=== PATIENT | female | born 1935 | race Caucasian/White ===

== ENCOUNTER 2016-08-11 14:55 | Observation (INO) | payer MEDICARE, BC ==
[~2016-08-11] VITALS: Ht 149.9 cm; Wt 121.9 kg
--- NOTE | ~2016-08-11 | HEMODYNAMI ---
PATIENT:CHRISTIAN GARCIAS NOVEMBER MEDICAL RECORD: [id number] : 33 [facility] [id number] ADMISSION DATE: 08/12/16 Generatedon:08/13/201611:26 Patient name: CHRISTIAN GARCIAS Patient #: [id number] SSN: : 1935 Date of study: 08/13/2016 Page: Of Hemodynamic Procedure Report Patient Data Patient Demographics Procedure consent was obtained First Name: CHRISTIAN Gender: Female Last Name: DIETER : 1935 Middle Initial: NOVEMBER Age: 81 year(s) Patient #: [id number] Race: Additional ID: [id number] Contact details Address: [address] [place] [address] State: [place] City: [facility] Zip code: [address] Past Medical History Allergies: No known allergies Admission Admission Data Admission Date: 08/12/2016 Admission Time: 17:38 Admit Source: Other Insurance Payor: Private Room #: D.2120 [employer] insurance, Medicare Height (in.): 49 BSA: 1.61 (m2) Height (cm.): 124.46 BMI: 58.56 (kg/m2) Weight (lbs.): 200 Weight (kg.): 90.72 Medications upon Admission Medications Dosage Times Administered Last Remarks per Delivery Day Date and Time Clopidogrel Yes 08/11/2016 0:00 Lab Results Lab Result Date: 08/12/2016 Lab Result Time: 0:00 Biochemistry Name Units Result Min Max Creatinine mg/dl 1.2 --(---*)-- 0.6 1.3 CBC Name Units Result Min Max Hemoglobin g/dl 13.8 --(*---)-- 13.5 17.5 Procedure Procedure Types Cath Procedure PCI Procedure Coronary Stent Initial Procedure Description Procedure Date Procedure Date: 08/13/2016 Procedure Start Time: 11:11 Procedure End Time: 11:24 Procedure Staff Name Function Curly Baptiste MD Performing Physician Sridevi Addison RT Scrub Olive Goff RN Nurse Talha Jones RN District Administrator Juan Carlos Talha RT Monitor Additional PCI Information PCI indication: Staged PCI Procedure Data Cath Procedure Fluoroscopy Diagnostic fluoroscopy Total fluoroscopy Time: 2.8 time: 2.8 min min Diagnostic fluoroscopy Total fluoroscopy dose: 474 dose: 474 mGy mGy Contrast Material Contrast Material Type Amount (ml) Isovue 300 58 Entry Location Entry Primary Successful Side Size Upsize Upsize Entry Closure Succes sful Closure Location (Fr) 1 (Fr) 2 (Fr) Remarks Device Remarks Femoral Left 6 Fr Vascade artery Short Closure System Estimated blood loss: 10 ml Procedure Complications No complications Procedure Medications Medication Administration Route Dosage Oxygen NC 2 l/min Lidocaine 2% added to field 20 Heparin Flush Bag added to field 2 bags (1000units/500ml NS) 0.9% NaCl I.V. 100 ml/hr Versed I.V. 1 mg Fentanyl I.V. 50 mcg Versed I.V. 1 mg Fentanyl I.V. 50 mcg Heparin Bolus I.V. 4000 units Hemodynamics Rest BSA: 1.61 (m2) HGB: 13.8 (g/dl) O2 Consumption: Estimated: 148.9 (ml/min) O2 Con sumption indexed: Estimated:92.48 (ml/min/m) Heart Rate: 78 (bpm) Snapshots Pre Cath Intra NCS Post Cath Vital Signs Time Heart Resp SPO2 etCO2 OU6tbit NIBP (mmHg) Rhythm Pain Sedation Rate (ipm) (%) (mmHg) (mmHg) Status Level (bpm) 10:54:03 76 28 96 0 0 Measuring NSR 0 (11) 10(A) , No pain 10:55:26 80 17 98 0 0 Time NSR 0 (11) 10(A) Exceeded , No pain 10:59:51 74 15 96 0 0 154/66(95) NSR 0 (11) 10(A) , No pain 11:07:34 77 18 97 0 0 134/66(85) NSR 0 (11) 10(A) , No pain 11:11:50 84 18 94 0 0 145/66(103) NSR 0 (11) 9(A) , No pain 11:16:08 85 17 95 0 0 137/62(85) NSR 0 (11) 9(A) , No pain 11:20:24 90 15 96 0 0 140/60(87) NSR 0 (11) 9(A) , No pain 11:23:20 91 16 97 0 0 135/62(81) NSR 0 (11) 10(A) , No pain Medications Time Medication Route Dose Verified Delivered Reason Notes Effectiveness by by 10:51:33 Oxygen NC 2 Curly Buffie used for l/min Oliva Goff RN procedure 10:51:46 Lidocaine 2% added 20ml Curly Curly for local to vial Oliva Baptiste MD anesthetic field 10:51:56 Heparin Flush added 2 Curly Curly used for Bag to bags Oliva Baptiste MD procedure (1000units/500ml field NS) 10:52:07 0.9% NaCl I.V. 100 Curly Buffie Per physician ml/hr Oliva Goff RN 11:05:32 Versed I.V. 1 mg Curly Beauie for sedation lOiva Goff RN 11:06:40 Fentanyl I.V. 50 Curly Buffie for sedation mcg Oliva Goff RN 11:12:44 Versed I.V. 1 mg Curly Buffie for sedation Oliva Goff RN 11:12:47 Fentanyl I.V. 50 Curly Schaefer for sedation mcg Oliva Goff RN 11:14:48 Heparin Bolus I.V. 4000 Curlyronna Yanezie for verifi ed units Oliva Goff RN anticoagulation with dr baptiste Procedure Log Time Note 10:20:49 Talha Jones RN sent for patient. Start room use. 10:33:34 Patient Height : 49 cm 10:33:34 Patient Weight : 200 kg 10:34:11 Time tracking: Regular hours 10:34:15 Plan of Care:Hemodynamics will remain stable., Cardiac rhythm will remain stable., Comfort level will be maintained., Respiratory function will remain adequate., Patient/ family verbilizes understanding of procedure., Procedure tolerated without complication., Recovers from procedure without complications.. 10:44:19 Patient received from PCU to CCL 2 Alert and oriented. Tansferred to table in Supine position. 10:44:20 Warm blankets applied, and dereje hugger turned on for patient comfort. 10:44:20 Correct patient and procedure confirmed by team. 10:44:21 Signed procedure consent form obtained from patient. 10:44:22 ECG and BP/O2 sat monitors applied to patient. 10:44:24 Full Disclosure recording started 10:51:33 Oxygen 2 l/min NC was given by Olive Goff RN; used for procedure; 10:51:46 Lidocaine 2% 20ml vial added to field was given by Curly Baptiste MD; for local anesthetic; 10:51:56 Heparin Flush Bag (1000units/500ml NS) 2 bags added to field was given by Curly Baptiste MD; used for procedure; 10:52:07 0.9% NaCl 100 ml/hr I.V. was given by Olive Goff RN; Per physician; 10:52:13 Vital chart was started 10:56:14 Vital chart was stopped 10:58:05 ACC Patient presents with Unstable Angina CCS Anginal Class 3--Marked limitation of physical activity, angina occurs with ordinary activity.. 10:58:11 Baseline sample Acquired. 10:58:15 Rhythm: sinus rhythm 10:59:04 H&P Date Dictated: 08/12/2016 Within 30 days and on chart.. 10:59:05 Pre-procedure instructions explained to patient. 10:59:05 Pre-op teaching completed and patient verbalized understanding. 10:59:07 Family in waiting room. 10:59:09 Patient NPO since Midnight. 10:59:13 Patient allergic to No known allergies 10:59:17 Is the patient allergic to Iodine/contrast media? No. 10:59:18 Is patient on blood thinner?Yes 10:59:21 ACC The patient was administered the following blood thiners within the last 24 hours: ACCPlavix 10:59:23 Patient diabetic? No. 10:59:26 Previous problem with sedation/anesthesia? No ? 10:59:28 Snore? No 10:59:29 Sleep apnea? No 10:59:30 Deviated septum? No 10:59:31 Opens mouth fully? Yes 10:59:32 Sticks out tongue? Yes 10:59:34 Airway obstruction? No ? 10:59:38 Dentures? Yes in tight 10:59:41 Pre procedure: left dorsailis pedis pulse 1+ Palpable, but thready & weak; easily obliterated 10:59:49 Patient pain scale 0/10 ?. 10:59:55 IV patent on arrival in left antecubital with 0.9% NaCl at [facility]. 11:00:02 Lab results completed and on chart. 11:00:07 Left groin area was prepped with chlora-prep and draped in sterile fashion 11:00:11 Alarms reviewed by R. N. 11:00:14 Sharps counted by scrub and verified by R.N. 11:00:25 Use device set Femoral PCI 11:00:27 Tegaderm 4 x 4 opened to sterile field. 11:00:28 Acist Manifold opened to sterile field. 11:00:29 Acist Syringe opened to sterile field. 11:00:29 Acist Hand Control opened to sterile field. 11:00:30 Bag Decanter opened to sterile field. 11:00:31 Cardinal Cath Pack opened to sterile field. 11:00:31 Terumo 6Fr Westmont Sheath opened to sterile field. 11:00:32 St Naveed 260cm J .035 wire opened to sterile field. 11:00:32 Merit BasixCompak Inflation Kit opened to sterile field. 11:04:49 Physician arrived 11:04:49 --------ALL STOP TIME OUT------ 11:04:50 Final Timeout: patient, procedure, and site verified with staff and physician. All members of the team are in agreement. 11:04:52 Left groin site verified by team. 11:04:54 Physical assessment completed. ASA score P 2 - A patient with mild systemic disease as per Curly Baptiste MD. 11:04:58 Sedation plan: IV Moderate Sedation Versed, Fentanyl 11:05:01 Zero performed for pressure channel P1 11:05:06 Zero performed for pressure channel P1 11:05:32 Versed 1 mg I.V. was given by Olive Goff RN; for sedation; 11:06:03 Zero performed for pressure channel P1 11:06:06 Zero performed for pressure channel P1 11:06:11 Zero performed for pressure channel P1 11:06:25 PCI Indication : Staged PCI 11:06:29 Vital chart was started 11:06:40 Fentanyl 50 mcg I.V. was given by Olive Goff RN; for sedation; 11:11:42 Procedure started. 11:11:47 Local anesthetic to left femerol artery with Lidocaine 2% by Curly Baptiste MD.INITIAL ACCESS ONLY 11:12:23 A 6 Fr Short sheath was inserted into the Left Femoral artery 11:12:44 Versed 1 mg I.V. was given by Olive Goff RN; for sedation; 11:12:47 Fentanyl 50 mcg I.V. was given by Olive Goff RN; for sedation; 11:13:08 Cordis 6FR XBLAD 3.5 guide catheter opened to sterile field. 11:13:15 Diaz Whisper J 300cm 0.014 guide wire opened to sterile field. 11:14:48 Heparin Bolus 4000 units I.V. was given by Olive Goff RN; for anticoagulation; verified with dr baptiste 11:17:00 6 Fr xblad 3.5 guide catheter was inserted over the wire 11:17:11 whisper wire advanced. 11:17:19 Wire advanced across lesion. 11:17:22 Inflation Number: 1 A Medtronic Resolute 2.5 X 14 stent was prepped and advanced across the Mid CX. The stent was deployed at 17 ENOC for 0:10 (min:sec). 11:18:02 Stent catheter was removed intact over wire. 11:18:09 ACC PCI Site: [facility] has 80% stenosis. 11:18:11 ACC Pre-intervention DAVID Flow is 1. 11:18:42 Inflation number: 1 A [place] Sci Pike 3.0 X 12 balloon was prepped and advanced across the Prox CX, then inflated to 17 ENOC for 0:10 (min:sec). 11:19:16 Inflation number: 2 The [place] Sci Pike 3.0 X 12 balloon was reinflated across the Prox CX, to 17 ENOC for 0:10 (min:sec). 11:19:19 ACC Post-intervention DAVID Flow is 2. 11:19:20 Balloon removed over the wire. 11:19:21 Wire removed. 11:19:21 Guide catheter removed. 11:19:27 Vascade 6/7 Fr Closure Device opened to sterile field. 11:19:41 Sheath removed intact; hemostasis achieved with Vascade Closure System to the Left Femoral artery. 11:19:43 Procedure ended.(Physican Out) 11:22:06 Fluoroscopy time 02.80 minutes. 11:22:10 Fluoroscopy dose: 474 mGy 11:22:10 Flurop Dose total: 474 11:22:14 Contrast amount:Isovue 300 58ml. 11:22:16 Sharps counted by scrub and verified by R.N. 11:22:17 Insertion/operative site no bleeding no hematoma. 11:22:20 Post-op/insertion site Left Femoral artery dressed using a 4 x 4 and Tegaderm. 11:22:25 Post left femerol artery:stable, soft, clean and dry 11:22:36 Post Procedure Pulses reassessed and unchanged 11:22:51 Post procedure rhythm: unchanged. 11:22:54 Estimated blood loss: 10 ml 11:22:56 Post procedure instruction explained to patient.Patient verbalizes understanding. 11:22:57 Patient needs reinforcement of post procedure teaching. 11:23:46 Procedure and supply charges have been captured, reviewed, submitted and are correct. 11:23:49 Procedure Complication : No complications 11:24:19 See physician's report for complete and final results. 11:24:21 Report given to PCU. 11:24:24 Patient transfered to PCU with Stretcher. 11:24:26 Procedure ended. 11:24:26 Full Disclosure recording stopped 11:25:51 ACC-PCI Only Patient was given prescriptions, or instructed by Curly Baptiste MD to start/continue the following medications upon discharge: Plavix 11:25:52 End room use (Document Last) 11:26:17 Vital chart was stopped Intervention Summary Intervention Notes Time ActionType Lesion and Equipment Action# Pressure Duration Attributes Used 11:17:22 Place stent Mid CX Medtronic 1 17 00:10 Resolute 2.5 X 14 stent 11:18:42 Inflate Prox CX [place] 1 17 00:10 balloon Sci Pike 3.0 X 12 balloon 11:19:16 Reinflate Prox CX [place] 2 17 00:10 balloon Sci Pike 3.0 X 12 balloon Device Usage Item Name Manufacture Quantity Catalog Number Hospital Part Current Mini mal Lot# / Charge Number Stock Stock Serial# Code Tegaderm 4 3M 1 [id number] [id number] [id number] 5 x 4 Acist Acist 1 99948 624385 271119 [id number] 5 Manifold Medical Systems Inc Acist Acist 1 92073 004506 717571 238454 20 Syringe Medical Systems Inc Acist Hand Acist 1 16984 903527 837497 129808 5 Control Medical Systems Inc Bag Microtek 1 2002S 256915 95481 014767 5 Decanter Medical Inc. Cardinal Cardinal 1 [id number] 84051 388488 5 Cath Pack Health Terumo 6Fr Terumo 1 [id number] 476099 178890 166704 [address] Naveed 1 338986 012158 780167 597145 30 260cm J .035 wire [facility] Merit 1 [id number] 653030 620919 531676 15 BasSequence Medical Inflation Kit Cordis 6FR Cardinal 1 [id number] 609805 467535 207743 10 XBLAD 3.5 Health guide catheter Diaz Diaz 1 [id number] 146553 408713 819529 5 Whisper J Vascular 300cm 0.014 guide wire Medtronic Medtronic 1 [id number] 039139 896704 3 [id number] Resolute 2.5 X 14 stent [place] Sci [place] 1 [id number] 084774 550901 692523 1 [id number] Wedit 3.0 X 12 balloon Vascade 6/7 Cardiva 1 [id number] 510303 403538 956493 5 Fr Closure Medical, Device Inc. Signature Audit [place] Stage Time Signature Unsigned Intra-Procedure 08/13/2016 Juan Carlos Palencia 11:26:15 AM RT(R) Signatures Monitor : Juan Carlos Palencia RT Signature : Date : Time : [place] [id number] [place] [address]
--- NOTE | ~2016-08-11 | HEMODYNAMI ---
PATIENT:CHRISTIAN GARCIAS NOVEMBER MEDICAL RECORD: [id number] : 34 [id number] ADMISSION DATE: 08/11/16 Generatedon:08/12/201612:58 Patient name: CHRISTIAN GARCIAS Patient #: [id number] SSN: : 1935 Date of study: 08/12/2016 Page: Of Hemodynamic Procedure Report Patient Data Patient Demographics Procedure consent was obtained First Name: CHRISTIAN Gender: Female Last Name: DIETER : 1935 Middle Initial: NOVEMBER Age: 81 year(s) Patient #: [id number] Race: Additional ID: [id number] Contact details Address: [address] [place] [address] State: [place] City: [facility] Zip code: [address] Past Medical History Allergies: No known allergies Admission Admission Data Admission Date: 08/11/2016 Admission Time: 18:52 Admit Source: Other Insurance Payor: Private Room #: D.[address] [employer], Medicare Height (in.): 49 BSA: 1.61 (m2) Height (cm.): 124.46 BMI: 58.56 (kg/m2) Weight (lbs.): 200 Weight (kg.): 90.72 Medications upon Admission Medications Dosage Times Administered Last Remarks per Delivery Day Date and Time Clopidogrel Yes 08/11/2016 0:00 Lab Results Lab Result Date: 08/12/2016 Lab Result Time: 0:00 Biochemistry Name Units Result Min Max Creatinine mg/dl 1.2 --(---*)-- 0.6 1.3 CBC Name Units Result Min Max Hemoglobin g/dl 13.8 --(*---)-- 13.5 17.5 Procedure Procedure Types Cath Procedure Diagnostic Procedure [facility] w/Coronaries PCI Procedure Coronary Stent Initial Procedure Description Procedure Date Procedure Date: 08/12/2016 Procedure Start Time: 12:33 Procedure End Time: 12:55 Procedure Staff Name Function Curly Baptiste MD Performing Physician Olive Goff RN Nurse Talha Jones RN Information Technology Program Manager Sridevi Addison RT Scrub Juan Carlos Palnecia RT Monitor Procedure Data Cath Procedure Fluoroscopy Diagnostic fluoroscopy Total fluoroscopy Time: 7.7 time: 7.7 min min Diagnostic fluoroscopy Total fluoroscopy dose: dose: 1689 mGy 1689 mGy Contrast Material Contrast Material Type Amount (ml) Isovue 300 171 Entry Location Entry Primary Successful Side Size Upsize Upsize Entry Closure Succes sful Closure Location (Fr) 1 (Fr) 2 (Fr) Remarks Device Remarks Femoral Right 5 Fr 6 Fr Vascade artery Short Closure System Estimated blood loss: 10 ml Diagnostic catheters Device Type Used For End Catheter Placement Cordis 5Fr Pigtail Procedure Catheter (MP) Cordis 5Fr JL 4.0 Procedure Catheter (MP) Cordis 5Fr 3DRC Catheter Procedure (MP) Procedure Complications No complications Procedure Medications Medication Administration Route Dosage Plavix P.O. 75 mg Oxygen NC 2 l/min Lidocaine 2% added to field 20 Heparin Flush Bag added to field 2 bags (1000units/500ml NS) 0.9% NaCl I.V. 100 ml/hr Versed I.V. 1 mg Fentanyl I.V. 50 mcg Versed I.V. 1 mg Fentanyl I.V. 50 mcg Fentanyl I.V. 50 mcg Heparin Bolus I.V. 4000 units Hemodynamics Rest BSA: 1.61 (m2) HGB: 13.8 (g/dl) O2 Consumption: Estimated: 150.77 (ml/min) O2 Co nsumption indexed: Estimated:93.65 (ml/min/m) Heart Rate: 81 (bpm) Snapshots Pre Cath Intra NCS Post Cath Vital Signs Time Heart Resp SPO2 etCO2 LL1iwak NIBP (mmHg) Rhythm Pain Sedation Rate (ipm) (%) (mmHg) (mmHg) Status Level (bpm) 12:08:29 80 16 95 0 0 165/81(134) NSR 0 (11) 10(A) , No pain 12:13:01 80 20 94 0 0 154/78(98) NSR 0 (11) 10(A) , No pain 12:17:32 79 20 96 0 0 146/75(120) NSR 0 (11) 10(A) , No pain 12:21:49 73 16 94 0 0 126/65(98) NSR 0 (11) 10(A) , No pain 12:26:12 78 16 95 0 0 132/67(106) NSR 0 (11) 10(A) , No pain 12:30:36 82 15 98 0 0 132/62(101) NSR 0 (11) 10(A) , No pain 12:34:56 80 15 96 0 0 121/63(84) NSR 0 (11) 9(A) , No pain 12:39:18 85 15 94 0 0 119/56(87) NSR 0 (11) 9(A) , No pain 12:43:38 90 15 98 0 0 127/61(87) NSR 0 (11) 9(A) , No pain 12:47:56 89 16 98 0 0 123/58(94) NSR 0 (11) 9(A) , No pain 12:52:14 96 16 98 0 0 140/74(103) NSR 0 (11) 10(A) , No pain Medications Time Medication Route Dose Verified Delivered Reason Notes Effectiveness by by 12:08:45 Plavix P.O. 75 mg Curly Buffie used for Oliva Goff RN procedure 12:08:53 Oxygen NC 2 Curly Buffie used for l/min Oliva Goff RN procedure 12:09:01 Lidocaine 2% added 20ml Curly Curly for local to vial Oliva Baptiste MD anesthetic field 12:09:08 Heparin Flush added 2 Curly Curly used for Bag to bags Oliva Baptiste MD procedure (1000units/500ml field NS) 12:09:17 0.9% NaCl I.V. 100 Curly Buffie Per physician ml/hr Oliva Goff RN 12:30:41 Versed I.V. 1 mg Curly Buffie for sedation Oliva Goff RN 12:30:46 Fentanyl I.V. 50 Curly Buffie for sedation mcg Oliva Goff RN 12:34:42 Versed I.V. 1 mg Curly Buffie for sedation Oliva Goff RN 12:34:46 Fentanyl I.V. 50 Curly Buffie for sedation mcg Oliva Goff RN 12:38:56 Fentanyl I.V. 50 Curly Buffie for sedation mcg Oliva Goff RN 12:41:47 Heparin Bolus I.V. 4000 Curly Buffie for verifi ed units Oliva Goff RN anticoagulation with dr baptiste Procedure Log Time Note 11:46:34 Talha Jones RN sent for patient. Start room use. 11:51:52 Time tracking: Regular hours 11:51:56 Plan of Care:Hemodynamics will remain stable., Cardiac rhythm will remain stable., Comfort level will be maintained., Respiratory function will remain adequate., Patient/ family verbilizes understanding of procedure., Procedure tolerated without complication., Recovers from procedure without complications.. 11:59:04 Patient received from PCU to CCL 2 Alert and oriented. Tansferred to table in Supine position. 11:59:04 Warm blankets applied, and dereje hugger turned on for patient comfort. 11:59:05 Correct patient and procedure confirmed by team. 11:59:06 Signed procedure consent form obtained from patient. 11:59:07 ECG and BP/O2 sat monitors applied to patient. 11:59:10 Full Disclosure recording started 12:02:33 H&P Date Dictated: 08/12/2016 Within 30 days and on chart.. 12:02:35 Pre-procedure instructions explained to patient. 12:02:35 Pre-op teaching completed and patient verbalized understanding. 12:02:37 Family in patients room. 12:02:39 Patient NPO since Midnight. 12:03:14 Patient allergic to No known allergies 12:03:17 Is the patient allergic to Iodine/contrast media? No. 12:03:19 Is patient on blood thinner?Yes 12:03:22 ACC The patient was administered the following blood thiners within the last 24 hours: ACCPlavix 12:04:39 Patient diabetic? No. 12:04:43 Previous problem with sedation/anesthesia? No ? 12:04:44 Snore? No 12:04:46 Sleep apnea? No 12:04:47 Deviated septum? No 12:04:48 Opens mouth fully? Yes 12:04:49 Sticks out tongue? Yes 12:04:52 Airway obstruction? No ? 12:04:57 Dentures? Yes in tight 12:05:52 Patient pain scale 0/10 ?. 12:05:57 IV patent on arrival in left forearm with 0.9% NaCl at [facility]. 12:06:24 Lab Result : Hemoglobin 13.8 g/dl 12:06:24 Lab Result : Creatinine 1.2 mg/dl 12:06:26 Lab results completed and on chart. 12:06:30 Alarms reviewed by R. N. 12::30 Sharps counted by scrub and verified by R.N. 12:07:01 Vital chart was started 12:07:03 Baseline sample Acquired. 12:07:06 Rhythm: sinus rhythm 12:08:45 Plavix 75 mg P.O. was given by Olive Goff RN; used for procedure; 12:08:53 Oxygen 2 l/min NC was given by Olive Goff RN; used for procedure; 12:: Lidocaine 2% 20ml vial added to field was given by Curly Baptiste MD; for local anesthetic; 12::08 Heparin Flush Bag (1000units/500ml NS) 2 bags added to field was given by Curly Baptiste MD; used for procedure; 12:09:17 0.9% NaCl 100 ml/hr I.V. was given by Olive Goff RN; Per physician; 12:12:34 Pre procedure: right dorsailis pedis pulse 1+ Palpable, but thready & weak; easily obliterated 12:12:46 Right groin area was prepped with chlora-prep and draped in sterile fashion 12:12:51 Use device set Femoral Dx 12:12:54 Tegaderm 4 x 4 opened to sterile field. 12:12:54 Acist Manifold opened to sterile field. 12:12:55 Acist Hand Control opened to sterile field. 12:12:56 Acist Syringe opened to sterile field. 12:12:56 Bag Decanter opened to sterile field. 12:12:57 Cardinal Cath Pack opened to sterile field. 12:12:57 Terumo 5Fr [place] Sheath opened to sterile field. 12:12:58 St Naveed 260cm J .035 wire opened to sterile field. 12:12:59 Cordis Infinity 5Fr Multipack catheter opened to sterile field. 12:13:56 ACC Patient presents with Unstable Angina CCS Anginal Class 3--Marked limitation of physical activity, angina occurs with ordinary activity.. 12:13:58 Diagnostic Cath status Elective 12:14:55 Physician paged 12:21:27 Zero performed for pressure channel P1 12:21:41 Zero performed for pressure channel P1 12:22:07 Zero performed for pressure channel P1 12::19 Patient Height : 49 cm 12:: Patient Weight : 200 kg 12:: Insurance Payor : Private health insurance, Medicare 12:: Admit Source: Other : --------ALL STOP TIME OUT------ :: Final Timeout: patient, procedure, and site verified with staff and physician. All members of the team are in agreement. 12:: Right groin site verified by team. 12:: Physical assessment completed. ASA score P 2 - A patient with mild systemic disease as per Curly Baptiste MD. 12::16 Sedation plan: IV Moderate Sedation Versed, Fentanyl 12::41 Versed 1 mg I.V. was given by Olive Goff RN; for sedation; 12:30:46 Fentanyl 50 mcg I.V. was given by Olive Goff RN; for sedation; 12:33:07 Procedure started. 12:33:10 Local anesthetic to right femoral artery with Lidocaine 2% by Curly Baptiste MD.INITIAL ACCESS ONLY 12:34:00 A 5 Fr sheath was inserted into the Right Femoral artery 12:34:16 A Cordis 5Fr Pigtail Catheter (MP) was advanced over the wire and used for Procedure. 12:34:38 LV gram done using WILHELM 12:34:40 Injector settings: Ml/sec: 10, Volume: 20, 12:34:42 Versed 1 mg I.V. was given by Olive Goff RN; for sedation; 12::46 Fentanyl 50 mcg I.V. was given by Olive Goff RN; for sedation; 12:34:50 EF : 50 % 12:34:53 Catheter exchanged over wire. 12:34:58 A Cordis 5Fr JL 4.0 Catheter (MP) was advanced over the wire and used for Procedure. 12:35:45 LCA angiography performed. 12:36:01 Studio SBV BasixCompak Inflation Kit opened to sterile field. 12:36:06 Diaz Whisper J 300cm 0.014 guide wire opened to sterile field. 12:36:11 Terumo 6Fr [place] Sheath opened to sterile field. 12:36:51 Catheter exchanged over wire. 12:37:03 A Cordis 5Fr 3DRC Catheter (MP) was advanced over the wire and used for Procedure. 12:38:18 Catheter removed. unable to cannulate vessel. 12:38:45 Medtronic Launcher 5Fr AR 2.0 guide catheter opened to sterile field. 12:38:56 Fentanyl 50 mcg I.V. was given by Olive Goff RN; for sedation; 12:39:01 5 Fr AR 2 guide catheter was inserted over the wire 12:40:15 RCA angiography performed. 12:40:19 ACCDominant side:Left 12:41:10 [place] IVUS Catheter opened to sterile field. 12:41:34 Catheter removed. 12:41:44 Sheath upsized to a 6 Fr Short. 12:41:47 Heparin Bolus 4000 units I.V. was given by Olive Goff RN; for anticoagulation; verified with dr baptiste 12:42:29 Cordis 6FR XBLAD 4.0 guide catheter opened to sterile field. 12:42:37 6 Fr xblad 4 guide catheter was inserted over the wire 12:43:29 Guide Catheter removed. unable to cannulate vessel. 12:43:45 Cordis 6FR XBLAD 3.5 guide catheter opened to sterile field. 12:43:54 6 Fr xblad 3.5 guide catheter was inserted over the wire 12:45:07 whisper wire advanced. 12:45:20 Wire advanced across lesion. 12:45:22 IVUS catheter advanced over wire. 12:45:27 IVUS pass to Circ lesion performed. 12:48:04 IVUS catheter removed over wire. 12:50:33 Inflation Number: 1 A Medtronic Resolute 3.5 X 30 stent was prepped and advanced across the Mid CX. The stent was deployed at 13 ENOC for 0:10 (min:sec). 12:50:58 ACC PCI Site: [facility] has 85% stenosis. 12:51:01 ACC Pre-intervention DAVID Flow is 1. 12:51:11 ACC Post-intervention DAVID Flow is 3. 12:51:31 Stent catheter was removed intact over wire. 12:51:31 Wire removed. 12:51:32 Guide catheter removed. 12:51:41 Vascade 6/7 Fr Closure Device opened to sterile field. 12:52:05 Sheath removed intact; hemostasis achieved with Vascade Closure System to the Right Femoral artery. 12:52:36 Procedure ended.(Physican Out) 12:52:49 Fluoroscopy time 07.70 minutes. 12:53:03 Fluoroscopy dose: 1689 mGy 12:53:03 Flurop Dose total: 1689 12:53:26 Contrast amount:Isovue 300 171ml. 12:53:58 Sharps counted by scrub and verified by R.N. 12:54:03 Insertion/operative site no bleeding no hematoma. 12:54:06 Post-op/insertion site Right Femoral artery dressed using a 4 x 4 and Tegaderm. 12:54:11 Post right femoral artery:stable, soft, clean and dry 12:54:12 Post Procedure Pulses reassessed and unchanged 12:54:15 Post-procedure physical assessment completed. ASA score P 2 - A patient with mild systemic disease as per Curly Baptiste MD. 12:54:17 Post procedure rhythm: unchanged. 12:54:21 Estimated blood loss: 10 ml 12:54:22 Post procedure instruction explained to patient.Patient verbalizes understanding. 12:54:23 Patient needs reinforcement of post procedure teaching. 12:54:30 Procedure type changed to Cath procedure, Diagnostic procedure, LHC, LHC w/Coronaries, PCI procedure, Coronary Stent Initial 12:54:55 Procedure and supply charges have been captured, reviewed, submitted and are correct. 12:54:57 Procedure Complication : No complications 12:54:59 Vital chart was stopped 12:54:59 See physician's report for complete and final results. 12:55:01 Report given to PCU. 12:55:03 Patient transfered to PCU with Stretcher. 12:55:06 Procedure ended. 12:55:06 Full Disclosure recording stopped 12:55:13 ACC-PCI Only Patient was given prescriptions, or instructed by Curly Baptiste MD to start/continue the following medications upon discharge: Plavix 12:56:38 End room use (Document Last) Intervention Summary Intervention Notes Time ActionType Lesion and Equipment Action# Pressure Duration Attributes Used 12:50:33 Place stent Mid CX Medtronic 1 13 00:10 Resolute 3.5 X 30 stent Device Usage Item Name Manufacture Quantity Catalog Hospital Part Current [facility] l Lot# / Number Charge Number Stock Stock Serial# Code Tegaderm 4 1 1626 [id number] 814881 668631 5 x 4 Acist Acist 1 50898 062312 502592 688563 5 Manifold Medical Systems Inc Acist Hand Acist 1 57421 998751 508221 885293 5 Control Medical Systems Inc Acist Acist 1 70008 395787 801119 248919 20 Syringe Medical Systems Inc Bag Microtek 1 2002S 347614 78015 187234 5 Decanter Medical Inc. Cardinal Cardinal [address] 413549 08609 068144 5 Cath Pack Health Terumo 5Fr Terumo 1 [id number] 517305 129374 942688 [address] [place] [address] St Naveed 1 736668 086993 565745 096439 30 260cm J .035 wire Cordis Cardinal 1 [id number] 040123 96613 138726 30 Infinity Health 5Fr Multipack catheter Cordis 5Fr Cardinal 1 [id number] 5 Pigtail Health Catheter (MP) Cordis 5Fr Cardinal 1 203038 5 JL 4.0 Health Catheter (MP) [facility] 1 [id number] 723801 333228 384700 15 BasixCompak Medical Inflation Kit Diaz Diaz 1 [id number] 905024 547267 617818 5 Whisper J Vascular 300cm 0.014 guide wire Terumo 6Fr Terumo 1 [id number] 216709 314587 134634 40 [place] Sheath Cordis 5Fr Cardinal 1 076006 5 3DRC Health Catheter (MP) Medtronic Medtronic 1 [id number] 532700 288631 496182 1 Launcher 5Fr AR 2.0 guide catheter [place] 1 [id number] 490686 198638 364640 8 [place] IVUS Catheter Cordis 6FR Cardinal 1 [id number] 851642 815897 612289 3 XBLAD 4.0 Health guide catheter Cordis 6FR Cardinal 1 [id number] 629687 292967 964340 10 XBLAD 3.5 Health guide catheter Medtronic Medtronic 1 [id number] 852477 378752 7 [id number] Resolute 3.5 X 30 stentt Vascade 6/7 Cardiva 1 [id number] 845155 015637 678058 5 Fr Closure Medical, Device Inc. Signature Audit [place] Stage Time Signature Unsigned Intra-Procedure 08/12/2016 Juan Carlos Palencia 12:58:23 PM RT(R) Signatures Monitor : Juan Carlos Palencia RT Signature : Date : Time : [place] [id number] [place] [address]
[2016-08-11 15:47] LABS: BASOPHILS 0.3 % (0.0-2.0); EOSINOPHILS 1.7 % (0-7); HEMATOCRIT 41.7 % (36.0-48.0); HEMOGLOBIN 13.8 g/dL (12-16); IMMATURE GRANULOCYTES 0.4 % (0-5); LYMPHOCYTES 15.1 % (15-50); MCH 30.7 pg (26.0-34.0); MCHC 33.1 g/dL (31.0-37.0); MCV 92.7 fL (80.0-100.0); MEAN PLATELET VOLUME 9.6 fL (7.4-10.4); MONOCYTES 7.8 % (2-11); NEUTROPHILS 74.7 % (40-80); PLATELET COUNT 231 10x3/uL (130-400); RDW 12.4 % (11.5-14.5); WBC 8.9 10x3/uL (4.8-10.8)
[2016-08-11 16:14] LABS: ALBUMIN 3.6 g/dL (3.4-5.0); ALKALINE PHOSPHATASE 77 U/L (46-116); ALT (SGPT) 28 U/L (10-68); BILIRUBIN - TOTAL 0.37 mg/dL (0.2-1.3); CALC OSMOLALITY 281 mosm/kg (275-300); CALCIUM 9.1 mg/dL (8.5-10.1); CARBON DIOXIDE 27.5 mmol/L (21.0-32.0); CHLORIDE - SERUM 103 mmol/L (98-107); CREATININE - SERUM 1.2 mg/dL (0.6-1.3); GLUCOSE 113 mg/dL (74-106); POTASSIUM - SERUM 4.3 mmol/L (3.5-5.1); PROTEIN - SERUM 6.8 g/dL (6.4-8.2); SODIUM 139 mmol/L (136-145); UREA NITROGEN 20 mg/dL (7-18); eGFR NON AFRICAN AMERICAN 45 mL/min (90-120)
[2016-08-11 16:24] LABS: APPEARANCE CLEAR (CLEAR); BILIRUBIN NEGATIVE (NEGATIVE); COLOR YELLOW (YELLOW); GLUCOSE NEGATIVE (NEGATIVE); KETONE NEGATIVE (NEGATIVE); LEUKOCYTE ESTERASE TRACE (NEGATIVE); NITRITE NEGATIVE (NEGATIVE); PROTEIN NEGATIVE (NEGATIVE); UROBILINOGEN NORMAL (NORMAL)
[2016-08-11 16:25] LABS: BACTERIA MODERATE /hpf (NONE SEEN); EPITHELIAL CELLS 0-5 /hpf (0-5); RED CELLS - URINE 0-5 /hpf (0-5); WHITE CELLS - URINE OCC /hpf (0-5)
[2016-08-11 16:28] LABS: CKMB 2.7 U/L (0.0-3.6); CREATINE KINASE 168 UL (21-215)
[2016-08-11 16:32] LABS: TROPONIN-I 0.075 ng/mL (0.000-0.060)
[2016-08-11] MEDS ORDERED: ZETIA10 MG PO (21:37)
[2016-08-11] MEDS ORDERED: PLAVIX75 MG PO (21:37)
[2016-08-11] MEDS ORDERED: HYDROCODONE-APA1 TAB PO (21:37)
[2016-08-11] MEDS ORDERED: CARDIOTEK RX TA1 TA1 PO (21:38)
[2016-08-11] MEDS ORDERED: AVALIDE 300-12.1 TA1 PO (21:38)
[2016-08-11 21:48] VITALS: BP 166/53
[2016-08-11 22:51] VITALS: BP 166/53; BMI 39.4
--- NOTE | 2016-08-11 23:00 | NUR ---
PT ARRIVED TO FLOOR FROM ER TELEMETRY ON AND SHOWING SR HR 76 NO DISTRESS OBSERVED AT THIS TIME PT FAMILY IN ROOM AT BED SIDE CALL LIGHT IN REACH SRX2 BED LOW AND LOCKED PT ON ROOM AIR DENIES PAIN OR NEEDS AT THIS TIME FAMILY IN ROOM AT BEDSIDE WILL MONITOR
[2016-08-12 01:32] VITALS: BP 139/48
[2016-08-12 04:57] VITALS: BP 156/61
--- NOTE | 2016-08-12 07:56 | NUR ---
ASSESSMENT DONE. DENIES NEEDS. FAMILY AT SIDE.
[2016-08-12 08:35] LABS: BASOPHILS 0.4 % (0.0-2.0); EOSINOPHILS 3.9 % (0-7); HEMOGLOBIN 12.7 g/dL (12-16); IMMATURE GRANULOCYTES 0.1 % (0-5); MCH 30.9 pg (26.0-34.0); MCHC 33.4 g/dL (31.0-37.0); MCV 92.5 fL (80.0-100.0); MEAN PLATELET VOLUME 9.7 fL (7.4-10.4); MONOCYTES 9.2 % (2-11); NEUTROPHILS 59.4 % (40-80); PLATELET COUNT 209 10x3/uL (130-400); RBC 4.11 10x6/uL (4.00-5.40); RDW 12.4 % (11.5-14.5); WBC 7.3 10x3/uL (4.8-10.8)
[2016-08-12 08:38] VITALS: BP 149/62
[2016-08-12 08:40] LABS: ANION GAP 12.2 mmol/L (8-16); CALCIUM 8.1 mg/dL (8.5-10.1); CARBON DIOXIDE 28.6 mmol/L (21.0-32.0); CREATININE - SERUM 1.1 mg/dL (0.6-1.3); POTASSIUM - SERUM 3.8 mmol/L (3.5-5.1)
--- NOTE | 2016-08-12 09:02 | NUR ---
IV NURSE AT BS. WILL CONT. PLAN OF CARE.
--- NOTE | 2016-08-12 09:02 | NUR ---
UP SOB WITH CALL LIGHT IN REACH. WILL MONITOR NEEDS.
--- NOTE | 2016-08-12 12:00 | NUR ---
TO RUG CLEANER HAND PER BED
[2016-08-12 12:41] VITALS: Ht 149.9 cm; Wt 121.9 kg
--- NOTE | 2016-08-12 13:15 | NUR ---
RETURN FROM ANODE ADJUSTER PER BED. RT TREVIN JOHNSON, C/D, PULSE PALP. FAMILY AT SIDE.
[2016-08-12 16:28] VITALS: BP 102/57
--- NOTE | 2016-08-12 17:54 | NUR ---
FAMILY AT SIDE. WITHOUT CHANGES OR DISTRESS NOTED AT THIS TIME. DENIES NEEDS.
--- NOTE | 2016-08-12 19:47 | NUR ---
ASSESSMENT COMPLETE, A&O, IV TO LEFT HAND SL, SITE CLEAN AND DRY. DRSG TO RIGHT GROIN C/D/I. NO SWELLING, BLEEDING OR HEMATOMA NOTED. LEG WARM TO THE TOUCH, PEDAL PULSES PRESENT. PT DENIES NEEDS, FAMILY AT BED SIDE.
[2016-08-12 20:00] VITALS: BP 150/63
--- NOTE | 2016-08-12 21:06 | NUR ---
BACTRIM TAB GIVEN, PT STATED THAT SHE USUALLY TAKE ALL OF HER HOME MEDS IN THE MORNING AND DIDNT WANT TO TAKE MEDICATIONS ORDERED AT THIS TIME BUT WILL TAKE THEM IN THE MORNING.
[2016-08-13] VITALS: BP 146/60
--- NOTE | 2016-08-13 00:15 | NUR ---
RESTING ON RIGHT SIDE, RESPERATIONS EVEN, NO S/S DISTRESS NOTED.
[2016-08-13 04:00] VITALS: BP 137/56
--- NOTE | 2016-08-13 05:01 | NUR ---
CALL LIGHT IN REACH, WILL CONTINUE WITH PLAN OF CARE.
--- NOTE | 2016-08-13 07:15 | NUR ---
PT SITTING UP IN BED DENIES NEEDS WILL CONTINUE TO MONITOR FAMILY AT BEDSIDE.
[2016-08-13 08:00] VITALS: BP 117/44
--- NOTE | 2016-08-13 08:00 | NUR ---
PREOPED PT FOR POTATO LOADER. HER PIV IN LEFT HAND WAS INFILTRATED. DC WITH CATHETER TIP INTACT. RESITED PT TO LEFT FA 22G X1 STICK.
--- NOTE | 2016-08-13 11:11 | OP ---
PATIENT NAME: CHRISTIAN GARCIAS MEDICAL RECORD: [id number] :34 LOCATION:D.M2 D.0 ADMISSION DATE:08/12/16 SURGEON: EDDIE VERMA MD DATE OF OPERATION: 08/12/2016 PROCEDURES: 1. PTCA, stent left circumflex. 2. Intravascular ultrasound of left circumflex. 3. Left heart catheterization. 4. Selective coronary angiography. 5. Left ventriculogram. INDICATION: Non-Q-wave myocardial infarction. PROCEDURE IN DETAIL: After informed consent was obtained and after detailed explanation of risks, benefits, as well as alternative therapies, the patient elected to proceed with angiogram and angioplasty. The right femoral area was prepped and draped in normal sterile fashion. The right femoral artery was cannulated via modified Seldinger technique with placement of 6-Serbian sheath. All catheters exchanged through this sheath. FINDINGS: The left ventriculogram was performed in standard 30-degree WILHELM view, reveals preserved cardiac wall motion, ejection fraction 50%. SELECTIVE CORONARY ANGIOGRAPHY: 1. Left main showed no significant angiographic disease. 2. Left anterior descending has 80% stenosis times 2. 3. The left circumflex has 85% stenosis in the proximal vessel confirmed by intravascular ultrasound. 4. The right coronary has a 90% stenosis; however, at the very small nondominant right coronary. PTCA STENT OF THE LEFT CIRCUMFLEX: The stent used is a 3.5 x 30 mm Resolute. Result was 0% residual stenosis. OVERALL IMPRESSION: Successful percutaneous transluminal coronary angioplasty stent of the left circumflex going from 85% initial stenosis to 0% residual. PLAN: PTCA stent of the LAD in the near future. TRANSINT:[id number] Voice Confirmation ID: [id number] DOCUMENT ID: [id number] EDDIE VERMA MD at 1111 CC: [id number] DICTATION DATE: 08/12/16 1257 COOLING TOWER TECHNICIAN: 08/12/16 1312 ADM IN [place] [id number] [place] [address]
--- NOTE | 2016-08-13 11:42 | NUR ---
PT BACK FROM [facility]SEM[facility] DETAIL[facility] SITE WNL VS WNL. FAMILY AT BEDSIDE PT ALERT AND ORIENTED. WILL CONTINUE TO [facility].
[2016-08-13 12:00] VITALS: BP 118/62
[2016-08-13] MEDS ORDERED: BACTRIM DS TABL1 TAB PO (13:21)
[2016-08-13] MEDS ORDERED: TENORMIN25 MG PO (13:22)
[2016-08-13] MEDS ORDERED: PRAVACHOL20 MG PO (13:22)
[2016-08-13] MEDS ORDERED: BAYER CHEWABLE81 MG PO (13:24)
--- NOTE | 2016-08-13 13:32 | HP ---
PATIENT: CHRISTIAN GARCIAS MEDICAL RECORD: [id number] ACCOUNT: [id number] LOCATION:. D.2120 : 34 ADMISSION DATE: 08/12/16 HISTORY AND PHYSICAL EXAMINATION DATE OF ADMISSION: 08/11/2016 CHIEF COMPLAINT: Weakness. HISTORY OF PRESENT ILLNESS: This is an 81-year-old white female with a known history of coronary artery disease. She lives alone and just states that over the last few days, she has just felt very weak and last night, she was not able to get out of bed. She called the family and they brought her in to the ER. Her troponin was elevated at 0.096. EKG showed left anterior fascicular block and this was consistent with a non-ST elevation MT. The patient did not have any chest pain or shortness of breath; however, a few years ago when she required stenting, she denied having any chest pain or shortness of breath at that time either. She felt weak and had a pain across her shoulders at that time. She is admitted for further evaluation. PAST MEDICAL AND SURGICAL HISTORY: She has a history of hypertension, hyperlipidemia, coronary artery disease with stents to LAD. She is followed by Dr. Baptiste. She had arthritis mostly in her back, hips and knees. She has had a cholecystectomy, hysterectomy, right total knee arthroplasty in 2001. She also has lumbar canal stenosis that causes chronic pain. ALLERGIES: No known drug allergies. HOME MEDICATIONS: Cardiotek once a day, irbesartan/HCTZ 300/12.5 once a day, Plavix 75 mg once a day, Zetia 10 mg once a day, latanoprost 0.005% eyedrops daily. SOCIAL HISTORY: She is , lives alone. HABITS: Former smoker, no alcohol. FAMILY HISTORY: Unknown. REVIEW OF SYSTEMS: GENERAL: No major weight changes. HEENT: No particular sinus or allergy problems. RESPIRATORY: No history of emphysema or COPD. GASTROINTESTINAL: No reflux, diarrhea or constipation. GENITOURINARY: No significant problems there. MUSCULOSKELETAL: She has significant back pain due to arthritis and lumbar canal stenosis. She has hip and knee pains as well. She has severe arthritis. She has seen Dr. Cantu for this in the past. NEUROLOGIC: No headaches or seizure. PSYCHIATRIC: Denies depression or melancholia. PHYSICAL EXAMINATION: VITAL SIGNS: Temperature 98.1, pulse 77, respirations 18, blood pressure 156/61, O2 sat was 90% on room air. GENERAL: She is awake and alert, in no acute distress. Family in the room with her at this time. HISTORY AND PHYSICAL [id number] VIRNIG,CHRISTIAN MAY SKIN: Warm and dry. HEENT: Grossly within normal limits. NECK: Supple. No JVD or bruit. HEART: Regular rate and rhythm without murmur. LUNGS: Fairly clear. ABDOMEN: Soft, obese. EXTREMITIES: No edema. LABORATORY DATA: CBC with a white count of 8900, hemoglobin 13.8, hematocrit 41.7, platelets are normal. Sodium 140, potassium 3.8, chloride 103, CO2 of 28.6, BUN 15, creatinine 1.1, glucose 84, troponin 0.096 and second reading earlier this morning was 0.120. Urinalysis showed trace blood, trace leukocyte esterase with moderate bacteria. Chest x-ray done showed no acute cardiopulmonary disease. EKG again showed left anterior fascicular block. ASSESSMENT: 1. Non-ST elevated myocardial infarction. 2. Hypertension. 3. Urinary tract infection. 4. Arthritis. PLAN: Cardiology has been consulted and she will be taken to the cardiac cath lab manager later today. We will treat her UTI. Other tests and procedures as warranted. TRANSINT:[id number] Voice Confirmation ID: [id number] DOCUMENT ID: [id number] ANTHONY FARR MD at 1332 CC: [id number] DICTATION DATE: 08/12/162004 TEACHER ADULT EDUCATION: 08/12/16 2157 ADM IN [place] [id number] [place] [id number]
--- NOTE | 2016-08-13 14:03 | NUR ---
Patient Name: CHRISTIAN GARCIAS Admission Status: ER Accout number: [id number] Admission Date: 08-12-2016 : 1935 Admission Diagnosis: Attending: KURT Current LOS: 1 Anticipated DC Date: 08-13-2016 Planned Disposition: Home Primary Insurance: MEDICARE A & B Discharge Planning Comments: * Is the patient Alert and Oriented? Yes 0 * How many steps to enter\exit or inside your home? 1 0 * PCP DR. FARR 0 * Pharm[facility] 0 * Preadmission Environment Home Alone 0 * ADLs Independent 0 * Equipment Rolling Walker 0 * Other Equipment [facility] MED[facility] EQUIPMENT PROVIDER PREFERENCE 0 * List name and contact numbers for known caregivers / representatives who currently or will assist patient after discharge: REI LANGE, DAUGHTER, 0 * Community resources currently utilized None 0 * Please name any agencies selected above. NONE 0 * Additional services required to return to the preadmission environment? No 0 * Can the patient safely return to the preadmission environment? Yes 0 * Has this patient been hospitalized within the prior 30 days at any hospital? No 0 CM MET WITH PT AND DAUGHTER IN ROOM TO DISCUSS DISCHARGE PLANNING AND NEEDS. PT REPORTS LIVING AT HOME INDEPENDENTLY AND ALONE. PT HAS A ROLLING WALKER WITH A SEAT AND NO OTHER MEDICAL EQUIPMENT. PT HAS NO OUTSIDE SERVICES ASSISTING IN THE HOME. CM DISCUSSED AVAILABILITY OF HOME HEALTH, REHAB SERVICES AND MEDICAL EQUIPMENT. PT DENIES DISCHARGE NEEDS, REPORTS HER DAUGHTER IS HERE TO PICK HER UP FOR DISCHARGE HOME. PT HAS ASKED DR. FARR FOR A WHEELCHAIR AND PLANS TO FOLLOW UP WITH DR. PALENCIA, PT'S ARTHRITIS DOCTOR, REGARDING WHEELCHAIR PT HAS AN APPOINTMENT NEXT WEEK. IMPORTANT MESSAGE FROM MEDICARE PROVIDED AND EXPLAINED. Brush Cutter: Hank Bentley
--- NOTE | 2016-08-13 15:41 | NUR ---
WENT OVER DC PAPERWORK WITH PT AND FAMILY PT AND FAMILY VERBALIZE UNDERSTANDING. GIVEN SCRIPT FOR PLAVIX. DC PIV WITH CATHETER TIP INTACT. DC TELE. GOT PT DRESSED. PT WAS WHEELED OUT VIA WHEELCHAIR
--- NOTE | 2016-08-20 16:40 | OP ---
PATIENT NAME: CHRISTIAN GARCIAS MEDICAL RECORD: [id number] :[birth year] LOCATION:D.M2 D.2120 ADMISSION DATE:08/11/16 SURGEON: EDDIE VERMA MD DATE OF OPERATION: 08/13/2016 PROCEDURES: 1. PTCA, stent LAD. 2. Selective coronary angiography. INDICATION: Angina and coronary artery disease. PROCEDURE IN DETAIL: After informed consent was obtained and after a detailed explanation of the risks, benefits, as well as alternative therapies, the patient elected to proceed with angiogram and angioplasty. The right femoral area was prepped and draped in normal sterile fashion. The right femoral artery was cannulated via modified Seldinger technique with placement of 6-Mexican sheath. All catheters exchanged through this sheath. FINDINGS: The left anterior descending has 80% stenosis in the mid vessel. This was addressed with a 2.5 x 14 mm Resolute stent. Result was 0% residual stenosis. OVERALL IMPRESSION: Successful percutaneous transluminal coronary angioplasty stent of the left anterior descending going from 80% initial stenosis to 0% residual. TRANSINT:[id number] Voice Confirmation ID: [id number] DOCUMENT ID: [id number] EDDIE VERMA MD at 1640 CC: [id number] DICTATION DATE: 08/13/16 1124 TRIMMER MACHINE: 08/13/16 1201 DIS IN 08/13/16 [facility] [address] [place] [address]
--- NOTE | 2016-08-20 16:40 | DS ---
PATIENT:CHRISTIAN GARCIAS NOVEMBER :[birth year] MEDICAL RECORD: [id number] DISCHARGE SUMMARY ADMISSION DATE: 08/11/16 DISCHARGE DATE: 08/13/16 DATE OF DISCHARGE: 08/13/2016. DISCHARGE DIAGNOSES: 1. Angina. 2. Coronary artery disease. 3. Percutaneous transluminal coronary angioplasty stent left anterior descending and left circumflex. HOSPITAL COURSE: Mrs. Garcias presents with anginal symptomatology, found to have 2-vessel coronary artery disease of the LAD and left circumflex, underwent successful PTCA stent of above territories, had an uneventful postop course and was discharged home with the addition of aspirin and Plavix to her medical regimen. We will follow up with [facility] in 1 month. TRANSINT:[id number] Voice Confirmation ID: [id number] DOCUMENT ID: [id number] EDDIE VERMA MD at 1640 CC: [id number] DICTATION DATE: 08/13/16 1123 CREDIT SUPPORT COUNSELOR: 08/13/16 1204 DIS IN 08/13/16 [address] [place] [address]
== END 2016-08-13 15:43 | disposition home or self-care (01) ==
LOC: D.ER 14:55 → OBSVTIME 18:52 → D.M2 18:52 → OBSVTIME 08-12 12:00 → D.M2 08-12 17:38
PROVIDERS: Emergency Medicine; Internal Medicine Interventional Cardiology; ADMIT Family Medicine
PROC: 4A023N7 Measurement of Cardiac Sampling and Pressure, Left Heart, Percutaneous Approach (ICD-10-PCS; 2016-08-12)
PROC: B211YZZ Fluoroscopy of Multiple Coronary Arteries using Other Contrast (ICD-10-PCS; 2016-08-12)
PROC: 027034Z Dilation of Coronary Artery, One Artery with Drug-eluting Intraluminal Device, Percutaneous Approach (ICD-10-PCS; principal; 2016-08-12 10:00)
PROC: 027034Z Dilation of Coronary Artery, One Artery with Drug-eluting Intraluminal Device, Percutaneous Approach (ICD-10-PCS; 2016-08-13)
DX: I21.4 Non-ST elevation (NSTEMI) myocardial infarction (principal); N39.0 Urinary tract infection, site not specified; I10 Essential (primary) hypertension; M19.90 Unspecified osteoarthritis, unspecified site; I25.119 Atherosclerotic heart disease of native coronary artery with unspecified angina pectoris
CPT/HCPCS: 92978; 93458; C9600 ×2

== ENCOUNTER 2017-07-14 08:48 | Outpatient (CLI) | payer MEDICARE, BC ==
[~2017-07-14] VITALS: Ht 149.9 cm; Wt 92.4 kg
--- NOTE | ~2017-07-14 | HEMODYNAMI ---
PATIENT:CHRISTIAN GARCIAS NOVEMBER MEDICAL RECORD: [id number] : [birth year] LOCATION:[facility] D.2119 ADMISSION DATE: 07/14/17 Generatedon:07/15/201714:50 Patient name: CHRISTIAN GARCIAS Patient #: [id number] SSN: : 1935 Date of study: 07/15/2017 Page: Of Hemodynamic Procedure Report Patient Data Patient Demographics Procedure consent was obtained First Name: CHRISTIAN Gender: Female Last Name: DIETER : 1935 Middle Initial: NOVEMBER Age: 82 year(s) Patient #: [id number] Race: Additional ID: [id number] Contact details Address: [address] [place] [address] State: [place] City: [facility] Zip code: [address] Past Medical History Allergies: No known allergies Admission Admission Data Admission Date: 07/14/2017 Admission Time: 10:36 Room #: D.2119 Height (in.): 58.66 BSA: 1.87 (m2) Height (cm.): 149 BMI: 42.79 (kg/m2) Weight (lbs.): 209.44 Weight (kg.): 95 Procedure Procedure Types Cath Procedure Diagnostic Procedure [facility] w/Coronaries PCI Procedure Coronary Stent Coronary Stent Initial Miscellaneous Procedures Moderate Sedation up to 30 minutes Procedure Description Procedure Date Procedure Date: 07/15/2017 Procedure Start Time: 14:20 Procedure End Time: 14:50 Procedure Staff Name Function Curly Baptiste MD Performing Physician Joaquina Hewitt RN Nurse Gama Gutierrez RT Monitor Juan Carlos Palencia RT Scrub Procedure Data Cath Procedure Fluoroscopy Diagnostic fluoroscopy Total fluoroscopy Time: 6.5 time: 6.5 min min Diagnostic fluoroscopy Total fluoroscopy dose: 892 dose: 892 mGy mGy Contrast Material Contrast Material Type Amount (ml) Isovue 300 111 Entry Location Entry Primary Successful Side Size Upsize Upsize Entry Closure Succes sful Closure Location (Fr) 1 (Fr) 2 (Fr) Remarks Device Remarks Femoral Right 5 Fr 6 Fr Exoseal artery Short Estimated blood loss: 10 ml Diagnostic catheters Device Type Used For End Catheter Placement MULTIPACK Pigtail 5 Fr Procedure catheter MULTIPACK JL 4.0 5Fr Procedure catheter MULTIPACK 3DRC 5Fr Procedure catheter Procedure Complications No complications Procedure Medications Medication Administration Route Dosage 0.9% NaCl I.V. 100 ml/hr Oxygen NC 2 l/min Lidocaine 2% added to field 20 Heparin Flush Bag added to field 2 bags (1000units/500ml NS) Fentanyl I.V. 50 mcg Versed I.V. 1 mg Versed I.V. 1 mg Fentanyl I.V. 50 mcg Heparin Bolus I.V. 4000 units Hemodynamics Rest BSA: 1.87 (m2) O2 Consumption: Estimated: 165.1 (ml/min) O2 Consumption indexed: Estimated:88.29 (ml/min/m) Heart Rate: 67 (bpm) Snapshots Pre Cath Intra NCS Post Cath Vital Signs Time Heart Resp SPO2 etCO2 NIBP (mmHg) Rhythm Pain Sedation Rate (ipm) (%) (mmHg) Status Level (bpm) 14:05:47 73 20 97 0 Measuring NSR 0 (11) 10(A) , No pain 14:05:53 72 20 96 0 173/79(150) NSR 0 (11) 10(A) , No pain 14:10:52 71 17 96 0 Measuring NSR 0 (11) 10(A) , No pain 14:11:00 68 15 94 0 189/70(135) NSR 0 (11) 10(A) , No pain 14:15:59 73 14 96 6.7 Measuring NSR 0 (11) 10(A) , No pain 14:16:06 74 14 94 12.7 148/66(114) NSR 0 (11) 10(A) , No pain 14:21:05 74 15 96 13.5 Measuring NSR 0 (11) 10(A) , No pain 14:21:07 73 15 96 13.5 153/65(117) NSR 0 (11) 10(A) , No pain 14:26:06 82 16 94 0 142/69(112) NSR 0 (11) 9(A) , No pain 14:31:05 83 16 98 11.3 142/62(110) NSR 0 (11) 9(A) , No pain 14:36:04 84 14 97 1.5 146/63(107) NSR 0 (11) 9(A) , No pain 14:41:03 86 16 98 13.5 160/76(121) NSR 0 (11) 9(A) , No pain 14:46:02 78 14 98 14.3 Measuring NSR 0 (11) 9(A) , No pain 14:46:04 79 15 99 14.3 171/79(120) NSR 0 (11) 10(A) , No pain Medications Time Medication Route Dose Verified Delivered Reason Notes Effectiveness by by 13:57:45 0.9% NaCl I.V. 100 Curly Joaquina used for ml/hr Oliva Hewitt RN procedure 14:07:53 Oxygen NC 2 Curly Joaquina Per physician l/min Oliva Hewitt RN 14:08:01 Lidocaine 2% added 20ml Curly Curly for local to vial Oliva Baptiste MD anesthetic field 14:08:10 Heparin Flush added 2 Curly Curly used for Bag to bags Oliva Baptiste MD procedure (1000units/500ml field NS) 14:20:44 Fentanyl I.V. 50 Curly Joaquina for sedation mcg Oliva Hewitt RN 14:20:56 Versed I.V. 1 mg Curly Joaquina for sedation Oliva Hewitt RN 14:21:31 Heparin Bolus I.V. 4000 Curly Joaquina for verifi ed units Oliva Hewitt RN anticoagulation by 14:22:24 Versed I.V. 1 mg Curly Joaquina for sedation Oliva Hewitt RN 14:22:31 Fentanyl I.V. 50 Curly Joaquina for sedation [facility] Oliva Hewitt RN Procedure Log Time Note 13:43:20 Patient Height : 58.66 inches 13:43:25 Patient Weight : 209.44 lbs 13:43:44 Procedure type changed to Cath procedure, Diagnostic procedure, LHC, LHC w/Coronaries, PCI procedure, Coronary Stent, Coronary Stent Initial, Miscellaneous Procedures, Moderate Sedation up to 30 minutes 13:44:07 Diagnostic Cath status Elective 13:44:12 Gama BENAVIDEZ(R) sent for patient. Start room use. 13:44:15 Time tracking: Regular hours 13:44:21 Plan of Care:Hemodynamics will remain stable., Cardiac rhythm will remain stable., Comfort level will be maintained., Respiratory function will remain adequate., Patient/ family verbilizes understanding of procedure., Procedure tolerated without complication., Recovers from procedure without complications.. 13:44:28 Patient received from Med II to CCL 1 Alert and oriented. Tansferred to table in Supine position. 13:57:45 0.9% NaCl 100 ml/hr I.V. was administered by Joaquina Hewitt RN; used for procedure; 13:58:19 Warm blankets applied, and dereje hugger turned on for patient comfort. 14:03:09 Correct patient and procedure confirmed by team. 14:03:12 Signed procedure consent form obtained from patient. 14:03:12 ECG and BP/O2 sat monitors applied to patient. 14:04:37 Vital chart was started 14:07:53 Oxygen 2 l/min NC was administered by Joaquina Hewitt RN; Per physician; 14:08:01 Lidocaine 2% 20ml vial added to field was administered by Curly Baptiste MD; for local anesthetic; 14:08:10 Heparin Flush Bag (1000units/500ml NS) 2 bags added to field was administered by Curly Baptiste MD; used for procedure; 14:09:59 Baseline sample Acquired. 14:10:03 Rhythm: sinus rhythm 14:10:05 Full Disclosure recording started 14:11:37 H&P Date Dictated: 07/14/2017 Within 30 days and on chart.. 14:11:53 Pre-procedure instructions explained to patient. 14:11:54 Pre-op teaching completed and patient verbalized understanding. 14:11:56 Family in patients room. 14:11:57 Patient NPO since Midnight. 14:12:00 Is the patient allergic to Iodine/contrast media? No. 14:12:02 Is patient on blood thinner?Yes 14:12:04 ACC The patient was administered the following blood thiners within the last 24 hours: ACCPlavix 14:12:08 Patient diabetic? No. 14:12:10 Patient not . Patient is over age 55. 14:12:12 Previous problem with sedation/anesthesia? No ? 14:12:16 Snore? Yes 14:12:17 Sleep apnea? No 14:12:18 Deviated septum? No 14:12:20 Opens mouth fully? Yes 14:12:21 Sticks out tongue? Yes 14:12:24 Airway obstruction? No ? 14:12:26 Dentures? Yes IN 14:12:31 Pre procedure: right dorsailis pedis pulse 1+ Palpable, but thready & weak; easily obliterated 14:15:11 Unable to palpate radial pulse. 14:15:15 Patient pain scale 0/10 ?. 14:15:22 IV patent on arrival in left forearm with 0.9% NaCl at [facility]. 14:15:24 Lab results completed and on chart. 14:15:27 Right groin area was prepped with chlora-prep and draped in sterile fashion 14:15:28 Alarms reviewed by R. N. 14:15:29 Sharps counted by scrub and verified by R.N. 14:15:36 Physician paged 14:15:40 Use device set Femoral Dx 14:15:42 Tegaderm 4 x 4 (1626W) opened to sterile field. 14:15:44 ACIST Hand Control (20056) opened to sterile field. 14:15:45 ACIST Manifold (52932) opened to sterile field. 14:15:46 ACIST Syringe (78568) opened to sterile field. 14:15:47 Bag Decanter (2002S) opened to sterile field. 14:15:47 Medline Cath Pack ([id number]) opened to sterile field. 14:15:47 SHEATH 5FR [place] (FXH638) opened to sterile field. 14:15:48 DIAGNOSTIC WIRE .035 260cm J wire (909569) opened to sterile field. 14:15:50 DIAGNOSTIC Multipack 5Fr catheter set (CS5451) opened to sterile field. 14:15:51 PERCUTANEOUS ENTRY 19GA needle opened to sterile field. 14:18:47 --------ALL STOP TIME OUT------ 14:18:47 Final Timeout: patient, procedure, and site verified with staff and physician. All members of the team are in agreement. 14:18:51 Right groin site verified by team. 14:18:55 Physical assessment completed. ASA score P 2 - A patient with mild systemic disease as per Curly Baptiste MD. 14:19:43 Sedation plan: IV Moderate Sedation Medication:Versed, Fentanyl 14:20:44 Fentanyl 50 mcg I.V. was administered by Joaquina Hewitt RN; for sedation; 14:20:47 Procedure started. 14:20:52 Local anesthetic to right femoral artery with Lidocaine 2% by Curly Baptiste MD.INITIAL ACCESS ONLY 14::56 Versed 1 mg I.V. was administered by Joaquina Hewitt RN; for sedation; 14:: Heparin Bolus 4000 units I.V. was administered by Joaquina Hewitt RN; for anticoagulation; verified by 14:21:39 Zero performed for pressure channel P1 14::24 Versed 1 mg I.V. was administered by Joaquina Hewitt RN; for sedation; 14:: Fentanyl 50 mcg I.V. was administered by Joaquina Hewitt RN; for sedation; 14:23:06 A 5 Fr sheath was inserted into the Right Femoral artery 14:23:13 A MULTIPACK Pigtail 5 Fr catheter was advanced over the wire and used for Procedure. 14::56 LV angiography performed. 14::57 LV gram done using WILHELM 14:24:05 EF : 50 % 14:24:20 Injector settings: Ml/sec: 10, Volume: 20, 14:24:42 Catheter removed. 14:24:53 A MULTIPACK JL 4.0 5Fr catheter was advanced over the wire and used for Procedure. 14:25:31 LCA angiography performed. 14:26:02 Use device set [facility] PCI 14:26:06 Catheter removed. 14:26:22 A MULTIPACK 3DRC 5Fr catheter was advanced over the wire and used for Procedure. 14:26:24 INFLATOR Merit BasixCompak (NF3140) opened to sterile field. 14:26:25 SHEATH 6FR [place] (MFR697) opened to sterile field. 14:26:37 WHISPER 190cm wire ([id number]) opened to sterile field. 14:27:19 GUIDE 6FR 3DRC catheter (AT89WCR) opened to sterile field. 14:27:29 RCA angiography performed. 14:27:30 Catheter removed. 14:27:53 Sheath upsized to a 6 Fr Short. 14:28:32 6 Fr 3DRC guide catheter was inserted over the wire 14:29:05 Guide Catheter removed. pressure damping. 14:29:29 GUIDE 6FR 3DRC SH catheter ([id number]) opened to sterile field. 14:29:57 6 Fr 3DRC SH guide catheter was inserted over the wire 14:30:44 Whisper wire advanced. 14:32:20 FIELDER XT J 300cm guide wire ([id number]) opened to sterile field. 14:32:28 Wire removed. unable to cross lesion. 14:33:12 Fielder wire advanced. 14:33:41 Wire advanced across lesion. 14:35:13 Inflation number: 1 A EUPHORA 2.0 x 15 Balloon ([id number]) was prepped and advanced across the Prox RCA, then inflated to 17 ENOC for 0:10 (min:sec). 14:35:44 Multiple inflations made at 17 Atms. 14:37:21 Balloon removed over the wire. 14:39:26 Inflation Number: 2 A PAULA OTW 2.25 x 22 stent ([id number]) was prepped and advanced across the Prox RCA. The stent was deployed at 13 ENOC for 0:10 (min:sec). 14:40:20 Stent catheter was removed intact over wire. 14:40:21 Wire removed. 14:40:22 Guide catheter removed. 14:40:33 Sheath removed intact; hemostasis achieved with Exoseal to the Right Femoral artery. 14:40:39 EXOSEAL 6Fr (EX600) opened to sterile field. 14:40:43 Procedure ended.(Physican Out) 14:42:40 Fluoroscopy time 06.50 minutes. 14:42:44 Fluoroscopy dose: 892 mGy 14:42:44 Flurop Dose total: 892 14:42:49 Contrast amount:Isovue 300 111ml. 14:42:50 Sharps counted by scrub and verified by R.N. 14:42:52 Insertion/operative site no bleeding no hematoma. 14:42:57 Post-op/insertion site Right Femoral artery dressed using a 4 x 4 and Tegaderm. 14:42:58 Post Procedure Pulses reassessed and unchanged 14:43:00 Post-procedure physical assessment completed. ASA score P 2 - A patient with mild systemic disease as per Curly Baptiste MD. 14:43:03 Post procedure rhythm: unchanged. 14:43:06 Estimated blood loss: 10 ml 14:43:13 Post procedure instruction explained to patient.Patient verbalizes understanding. 14:43:13 Patient needs reinforcement of post procedure teaching. 14:43:30 Procedure and supply charges have been captured, reviewed, submitted and are correct. 14:43:46 Procedure Complication : No complications 14:45:40 IV Extension Set opened to sterile field. 14:49:36 Vital chart was stopped 14:49:36 See physician's report for complete and final results. 14:50:23 Report given to PCU. 14:50:31 Patient transfered to PCU with Bed. 14:50:34 Procedure ended. 14:50:34 Full Disclosure recording stopped 14:50:38 End room use (Document Last) Intervention Summary Intervention Notes Time ActionType Lesion and Equipment Action# Pressure Duration Attributes Used 14:35:13 Inflate Prox RCA EUPHORA 2.0 x 1 17 00:10 balloon 15 Balloon ([id number]) 14:39:26 Place stent Prox RCA PAULA OTW 2.25 2 13 00:10 x 22 stent ([id number]) Device Usage Item Name Manufacture Quantity Catalog Hospital Part Current Minim al Lot# / Number Charge Number Stock Stock Serial# Code Tegaderm 4 x 3M 1 1626W 193107 940036 339494 5 4 (1626W) ACIST Hand Acist 1 37089 257497 820085 660862 5 Control Medical (44744) Systems Inc ACIST Acist 1 47550 293209 244252 174420 5 Manifold Medical (31940) Systems Inc ACIST Syringe Acist 1 11049 923385 060391 471404 20 (54011) Medical Systems Inc Bag Decanter Microtek 1 2001S 144409 50266 340944 5 (2001S) Medical Inc. Medline Cath Cardinal 1 [id number] 691538 29762 661580 5 Pack Health ([id number]) SHEATH 5FR Terumo 1 QIT317 729243 016633 670865 40 [place] (UNM733) DIAGNOSTIC St Naveed 1 607801 147519 555099 035886 30 WIRE .035 260cm J wire (333796) DIAGNOSTIC Cardinal 1 RM3369 282283 73199 559570 30 Multipack 5Fr Health catheter set (TJ5443) PERCUTANEOUS [employer] 1 X86516 399414 314184 5 ENTRY 19GA needle MULTIPACK Cardinal 1 407147 5 Pigtail 5 Fr Health catheter MULTIPACK JL Cardinal 1 796089 5 4.0 5Fr Health catheter MULTIPACK Cardinal 1 191072 5 3DRC 5Fr Health catheter INFLATOR [facility] 1 HS6650 293862 291140 680324 15 [facility] Medical BasixCompak (YP5694) SHEATH 6FR Terumo 1 BZX799 875970 763071 443869 40 [place] (KDN617) WHISPER 190cm Diaz 1 [id number] 998664 406794 389021 5 wire Vascular ([id number]) GUIDE 6FR Medtronic 1 [id number] 925896 078319 449670 1 3DRC SH catheter (UH74FFOCO) GUIDE 6FR Medtronic 1 BB52QHR 392314 305972 834367 1 3DRC catheter (VS45GQF) FIELDER XT J Diaz 1 [id number] 523099 089007 493408 5 300cm guide Vascular wire ([id number]) EUPHORA 2.0 x Medtronic 1 [id number] 178960 721694 732532 5 [id number] 15 Balloon ([id number]) PAULA OTW 2.25 Medtronic 1 [id number] 450141 31241 668107 5 [id number] x 22 stent ([id number]) EXOSEAL 6Fr Cardinal 1 EX600 259451 782462 274117 10 (EX600) Health IV Extension Hospira 1 56934-87 804929 78898 331654 5 Set Signature Audit [place] Stage Time Signature Unsigned Intra-Procedure 07/15/2017 Gama Gutierrez 2:50:53 PM RT(R) Signatures Monitor : Gama Gutierrez RT Signature : Date : Time : [facility] [address] [place] [address]
[~2017-07-14 08:48] MED LIST: AVALIDE 300-12.1 TA1 PO; BACTRIM DS TABL1 TAB PO; BAYER CHEWABLE81 MG PO; CARDIOTEK RX TA1 TA1 PO; HYDROCODONE-APA1 TAB PO; PLAVIX75 MG PO; PRAVACHOL20 MG PO; TENORMIN25 MG PO; ZETIA10 MG PO
[2017-07-14 09:43] LABS: BASOPHILS 0.8 % (0-2); EOSINOPHILS 3.4 % (0-7); HEMATOCRIT 40.6 % (36.0-48.0); HEMOGLOBIN 13.8 g/dL (12-16); IMMATURE GRANULOCYTES 0.2 % (0-5); LYMPHOCYTES 23.8 % (15-50); MCH 31.3 pg (26.0-34.0); MCV 92.1 fL (80.0-100.0); MEAN PLATELET VOLUME 9.7 fL (7.4-10.4); MONOCYTES 7.7 % (2-11); NEUTROPHILS 64.1 % (40-80); PLATELET COUNT 231 10x3/uL (130-400); RBC 4.41 10x6/uL (4.00-5.40); RDW 12.3 % (11.5-14.5); WBC 6.2 10x3/uL (4.8-10.8)
[2017-07-14 10:04] LABS: ALBUMIN 3.5 g/dL (3.4-5.0); ANION GAP 11.7 mmol/L (8-16); BILIRUBIN - TOTAL 0.43 mg/dL (0.2-1.3); CALCIUM 8.9 mg/dL (8.5-10.1); CARBON DIOXIDE 27.9 mmol/L (21.0-32.0); CREATININE - SERUM 1.2 mg/dL (0.6-1.3); POTASSIUM - SERUM 3.6 mmol/L (3.5-5.1)
[2017-07-14 10:21] LABS: TROPONIN-I 0.13 ng/mL (0.000-0.060)
[2017-07-14 16:21] LABS: TROPONIN-I 0.156 ng/mL (0.000-0.060)
[2017-07-14 19:00] VITALS: BP 132/45
--- NOTE | 2017-07-14 19:44 | NUR ---
RECEIVED REPORT FROM RABIA LYONS.
[2017-07-15] MEDS ORDERED: XALATAN 0.0052.5 ML LEFT EYE (00:25)
[2017-07-15] MEDS ORDERED: OMEGA 3 FISH OI1 CAP PO (00:27)
[2017-07-15 02:02] VITALS: Ht 149.9 cm; Wt 92.4 kg
[2017-07-15 04:00] VITALS: BP 144/51
[2017-07-15 08:55] VITALS: BP 133/56
[2017-07-15 11:46] VITALS: BP 178/68
--- NOTE | 2017-07-15 13:45 | NUR ---
PRE-OPS GIVEN. TO DIALYSIS BY BED.
--- NOTE | 2017-07-15 15:10 | NUR ---
BACK FROM METAL LOADER. VS WNL. RIGHT GROIN STABLE WITHOUT BLEEDING OR HEMATOMA NOTED. WILL MONITOR.
[2017-07-15 21:10] VITALS: BP 112/72
--- NOTE | 2017-07-15 22:37 | NUR ---
INITIAL ROUNDS COMPLTED AT 1910 HRS. PT STATED HER CHRONIC BACK PAIN WAS ACTING UP. BEDREST UPA ND PT PLACE IN SEMI-JOLLEY'S. R GROIN CLEAN, DRY AND INTQACT. PALPBALE PEDAL PULSES. PT TO BR AT 1925 HRS WITH ASSIST OF SON. VOIDED MEDERATE AMOUNT OF URINE. BACK TO BED WITH ASSIST. NO CHANGES TO R GROIN. PM MEDS GIVEN INCLUDING NORCO FOR CHRONIC BACK PAIN. PT UP TO BR AT 2200 HRS. NO CHANGES TO R GROIN NOTED. PALPABLE PEDAL PULSES. PT STATED NO PAIN AT THAT TIME. PT CURRENTLY RESTING WITH EYES CLOSED. RESP EVEN AND REGULAR. SR UP X2, CALL LIGHT WITHIN REACH AND SON AT BEDSIDE.
[2017-07-16 00:10] VITALS: BP 160/53
--- NOTE | 2017-07-16 00:12 | NUR ---
PT RESTING WITH EYES CLOSED. RESP EVEN AND REGULAR. NO CAHNGES TO R GROIN NOTED. PALPABLE PEDAL PULSES WILL CONTINUE TO MONITOR.
--- NOTE | 2017-07-16 04:30 | NUR ---
PT AWAKE; DENIES ANY DISCOMFORT. NO CHANGES TO R GROIN NOTED. WILL CONTINUE TO MONITOR.
[2017-07-16 05:21] VITALS: BP 132/62
--- NOTE | 2017-07-16 06:32 | NUR ---
VSS THROUGHOUT NIGHT. SR PER CM. PT STATED NORCO RELIEVED CHRONIC BACK PAIN., NEEDS MET; WILL CONTINUE TO MONITOR.
[2017-07-16 08:05] VITALS: BP 152/50
--- NOTE | 2017-07-16 09:35 | NUR ---
IV AND TELEMETRY DCD. DC PLANS GIVEN. UNDERSTANDING VOICED. ESCORTED TO CAR BY W/C.
--- NOTE | 2017-07-27 15:46 | OP ---
PATIENT NAME: CHRISTIAN GARCIAS MEDICAL RECORD: [id number] :34 LOCATION:D.CAT ADMISSION DATE: SURGEON: EDDIE VERMA MD DATE OF OPERATION: 07/15/2017 PROCEDURES: 1. PTCA stent, RCA. 2. Left heart catheterization. 3. Selective coronary angiography. 4. Left ventriculogram. INDICATION: Angina and coronary artery disease. PROCEDURE IN DETAIL: After informed consent was obtained, after detailed explanation of risks, benefits as well as alternative therapies, the patient elected to proceed with angiogram and angioplasty. The right femoral area was prepped and draped in normal sterile fashion. Right femoral artery was cannulated via modified Seldinger technique with placement of 6-[place] sheath. All catheters were exchanged through this sheath. FINDINGS: Left ventriculogram was performed in standard 30-degree WILHELM view reveals good cardiac wall motion throughout all segments. Overall ejection fraction estimated 60%. SELECTIVE CORONARY ANGIOGRAPHY: 1. Left main showed no significant angiographic disease. 2. Left anterior descending has previously placed stents, these appear to be widely patent with no significant restenosis. No disease elsewise throughout the LAD or its branches. 3. Left circumflex has previously placed stents, these are widely patent. However, there is a greater than 70% stenosis in the midvessel after the previously placed stents. 4. The right coronary has a 95-99% stenosis at the ostium followed by a 90% stenosis. PTCA STENT OF THE RIGHT CORONARY: The stent used covering both stenosis was 2.25 x 22 mm Maurizio. Result was 0% residual stenosis. OVERALL IMPRESSION: Successful percutaneous transluminal coronary angioplasty stent of the right coronary artery going from 95-99% initial stenosis to 0% residual. TRANSINT:[id number] Voice Confirmation ID: [id number] DOCUMENT ID: [id number] EDDIE VERMA MD at 1546 CC: [id number] DICTATION DATE: 07/15/17 1446 MACHINE FEATHEREDGER AND REDUCER: 07/15/17 1516 [facility] CLI 07/16/17 [id number] [place] [address]
--- NOTE | 2017-07-27 15:46 | DS ---
PATIENT:CHRISTIAN GARCIAS NOVEMBER :33 MEDICAL RECORD: [id number] DISCHARGE SUMMARY ADMISSION DATE: 07/14/17 DISCHARGE DATE: 07/16/17 DISCHARGE DIAGNOSES: 1. Angina. 2. Coronary artery disease. 3. PTCA and stent of RCA this admission. 4. Hypertension. 5. Hyperlipidemia. HOSPITAL COURSE: Ms. Garcias presents with anginal symptomatology, found to have critical disease of the RCA as well as significant disease to the left circumflex. Underwent successful PTCA and stent of the RCA. Discharged home with the addition of aspirin and Plavix to her medical regimen. She will follow up next week for PTCA and stent of the circumflex in a staged fashion. TRANSINT:[id number] Voice Confirmation ID: [id number] DOCUMENT ID: [id number] EDDIE VERMA MD at 1546 CC: [id number] DICTATION DATE: 07/16/17 0833 POLITICAL CONSULTANT: 07/16/17 0905 [facility] CLI 07/16/[address] [address]
--- NOTE | 2017-07-27 15:46 | HP ---
PATIENT: CHRISTIAN GARCIAS MEDICAL RECORD: [id number] ACCOUNT: [id number] LOCATION:[place] : 33 ADMISSION DATE: 07/14/17 HISTORY AND PHYSICAL EXAMINATION DIAGNOSES: 1. Unstable angina. 2. Coronary artery disease. 3. Previous PTCA and stent. 4. Hypertension. 5. Hyperlipidemia. HISTORY: Mrs. Garcias was awoken with chest discomfort, radiating to her back, just like that of her previous angina this morning at 3:30. She has continued to have episodes of chest pain. Her heart rate was in the 140s, but systolic blood pressure was in the 200 range at that time. Her pain has now subsided. She had multiple hours of chest pain, just like that of her previous angina. REVIEW OF SYSTEMS: The patient reports easy bruising but reports no swollen glands. The patient reports no fever, no night sweats, no significant weight gain, no significant weight loss. No significant exercise tolerance. The patient reports no dry eyes, no irritation, no vision change. Patient reports no difficulty hearing and no ear pain. Patient reports no frequent nose bleeds or nose and sinus problems. Patient reports on arm pain on exertion. No shortness of breath while lying down. No history of heart murmur. Patient reports no cough, no wheezing or coughing up blood. Patient reports no abdominal pain, no vomiting. Normal appetite. No diarrhea and not vomiting blood. No nausea and no constipation. Patient reports no incontinence. No difficulty urinating. No hematuria. No increased frequency. Patient reports no muscle aches. No weakness, no arthralgias, no back pain. No swelling of the extremities. Patient reports no abnormal mole, no jaundice, no rashes. Reports no loss of consciousness. No weakness and no numbness. No seizures, dizziness, or headaches. The patient reports no depression, no sleep disturbance, feeling safe in a relationship and no alcohol abuse. Patient reports on fatigue. Reports no runny nose or sinus pressure. No itching, no hives, and no frequent sneezing. PHYSICAL EXAMINATION: GENERAL APPEARANCE: Well-nourished, well-developed, appears stated age. Level of distress, comfortable. PSYCHIATRIC: Mental status, alert, normal affect. Orientation, oriented to time, place and person. EYES: Lids and conjunctiva, noninjected. No discharge, no pallor. ENT: Lips, teeth, gums, normal dentition. Oropharynx, no cyanosis, no pallor. NECK: Carotid arteries, bilateral normal upstroke, no bruits, no thrills. JUGULAR VEINS: No jugular venous pressure or distention. CERVICAL LYMPH NODES: Nontender, nonenlarged. THYROID: Not enlarged. Nontender. No nodules. LUNGS: Respiratory effort, unlabored. CHEST: Normal curvature. No thoracic deformity. No chest wall tenderness. Percussion, resonant. Auscultation, clear. No wheezes, no rales, no rhonchi. CARDIOVASCULAR: Precordial exam, nondisplaced. No heaves or pericardial thrills. Rate and rhythm, regular. Heart sounds, normal S1, normal S2. No S3, no gallop, no rub. Systolic murmur, not heard. Diastolic murmur, not heard. EXTREMITIES: No cyanosis, no edema. Peripheral pulses, full and equal in all HISTORY AND PHYSICAL [id number] VIRNIG,CHRISTIAN MAY extremities, except as noted. No bruits appreciated. ABDOMEN: Soft, nondistended. Normal aorta. No bruit. Nontender. No masses. Liver, nontender, no hepatomegaly. Spleen, nontender, no splenomegaly. MUSCULOSKELETAL: No joint tenderness. No joint swelling. No erythema. NEUROLOGICAL: Normal gait, normal strength, normal tone. SKIN: Warm and dry. OVERALL IMPRESSION: Chest pain, compatible with angina. Most likely, she has recurrent hemodynamically significant coronary artery disease. We will proceed with coronary angiography. Further care depends upon findings of the angiography. TRANSINT:[id number] Voice Confirmation ID: [id number] DOCUMENT ID: [id number] EDDIE VERMA MD at 1546 CC: [id number] DICTATION DATE: 07/14/17 1512 MOLD MACHINE OPERATOR: 07/14/17 1552 DEP CLI 07/16/17 [place] [address] [place] [id number]
== END 2017-07-16 09:35 | disposition home or self-care (01) ==
LOC: OBSVTIME → D.CATH 08:48 → D.ER 08:48 → D.M2 10:36 → OBSVTIME 10:36 → D.M2 10:36 → D.ER 10:36 → EDSTATUS 07-15 12:00 → D.M2 07-16 09:35 → D.CATH 07-16 09:35
PROVIDERS: Emergency Medicine
DX: I25.119 Atherosclerotic heart disease of native coronary artery with unspecified angina pectoris (principal); I10 Essential (primary) hypertension; E78.5 Hyperlipidemia, unspecified; Z95.5 Presence of coronary angioplasty implant and graft; Z01.812 Encounter for preprocedural laboratory examination
CPT/HCPCS: 93458; C9600

== ENCOUNTER 2017-07-20 08:26 | Outpatient (CLI) | payer MEDICARE, BC ==
[~2017-07-20] VITALS: Ht 149.9 cm; Wt 92.3 kg
--- NOTE | ~2017-07-20 | HEMODYNAMI ---
PATIENT:CHRISTIAN GARCIAS NOVEMBER MEDICAL RECORD: [id number] : 33 LOCATION:[facility] ADMISSION DATE: 07/20/17 Generatedon:07/20/201711:46 Patient name: CHRISTIAN GARCIAS Patient #: [id number] SSN: : 1935 Date of study: 07/20/2017 Page: Of Hemodynamic Procedure Report Patient Data Patient Demographics Procedure consent was obtained First Name: CHRISTIAN Gender: Female Last Name: DIETER : 1935 Middle Initial: NOVEMBER Age: 82 year(s) Patient #: [id number] Race: Additional ID: [id number] Contact details Address: [address] [place] [address] State: [place] [facility] [place] code: [address] Past Medical History Allergies: No known allergies Admission Admission Data Admission Date: 07/20/2017 Admission Time: 8:26 Procedure Procedure Types Cath Procedure PCI Procedure Coronary Stent Coronary Stent Initial Miscellaneous Procedures Moderate Sedation up to 30 minutes Peripheral Cath Diagnostic Procedure Abd/Extremity Extremities Right Lower Ext Arterio Procedure Description Procedure Date Procedure Date: 07/20/2017 Procedure Start Time: 11:22 Procedure End Time: 11:46 Procedure Staff Name Function Curly Baptiste MD Performing Physician Sridevi Addison RT Monitor Mckenna Dozier RT Scrub Duy Lea RN Nurse Procedure Data Cath Procedure Fluoroscopy Diagnostic fluoroscopy Total fluoroscopy Time: 5.5 time: 5.5 min min Diagnostic fluoroscopy Total fluoroscopy dose: 603 dose: 603 mGy mGy Contrast Material Contrast Material Type Amount (ml) Isovue 300 98 Entry Location Entry Primary Successful Side Size Upsize Upsize Entry Closure Succes sful Closure Location (Fr) 1 (Fr) 2 (Fr) Remarks Device Remarks Femoral Left 6 Fr Exoseal artery Short Estimated blood loss: 10 ml Diagnostic catheters Device Type Used For End Catheter Placement DIAGNOSTIC IMT 5Fr Lower extremity Catheter ([id number]) arteriography DIAGNOSTIC UF 5Fr Lower extremity catheter ([id number]) arteriography Procedure Complications No complications Procedure Medications Medication Administration Route Dosage 0.9% NaCl I.V. 100 ml/hr Oxygen NC 2 l/min Heparin Flush Bag added to field 2 bags (1000units/500ml NS) Lidocaine 2% added to field 20 Versed I.V. 0.5 mg Fentanyl I.V. 50 mcg Versed I.V. 0.5 mg Heparin Bolus I.V. 4000 units Hemodynamics Rest Heart Rate: 72 (bpm) Snapshots Pre Cath Intra NCS Post Cath Vital Signs Time Heart Resp SPO2 etCO2 NIBP (mmHg) Rhythm Pain Sedation Rate (ipm) (%) (mmHg) Status Level (bpm) 10:53:43 66 14 100 36.7 145/75(113) NSR 0 (11) 10(A) , No pain 10:58:36 73 16 99 35.2 129/57(101) NSR 0 (11) 10(A) , No pain 11:03:20 77 16 100 35.2 122/53(86) NSR 0 (11) 10(A) , No pain 11:08:09 77 15 100 11.2 125/56(84) NSR 0 (11) 10(A) , No pain 11:13:00 80 14 100 8.9 115/53(89) NSR 0 (11) 10(A) , No pain 11:17:47 77 15 100 33.7 133/60(96) NSR 0 (11) 10(A) , No pain 11:22:38 82 15 100 20.9 128/63(100) NSR 0 (11) 10(A) , No pain 11:27:26 83 14 99 13.4 119/52(82) NSR 0 (11) 9(A) , No pain 11:32:13 77 15 100 22.4 126/59(92) NSR 0 (11) 9(A) , No pain 11:37:04 79 15 99 34.4 130/54(92) NSR 0 (11) 9(A) , No pain 11:41:53 78 11 99 35.2 131/62(101) NSR 0 (11) 9(A) , No pain Medications Time Medication Route Dose Verified Delivered Reason Notes Effectiveness by by 10:55:00 0.9% NaCl I.V. 100 Duy Duy Per physician ml/hr Lorigan Lorigan RN RN 10:55:10 Oxygen NC 2 Duy Duy Per physician l/min Venu Lea RN RN 10:55:24 Heparin Flush added 2 Duy Duy used for Bag to bags Venu Lea procedure (1000units/500ml RN RN NS) 10:55:39 Lidocaine 2% added 20ml Duy Duy for local to vial Lornicola Lea anesthetic field RN RN 11:18:23 Versed I.V. 0.5 Duy Duy for sedation mg Venu Lea RN RN 11:18:33 Fentanyl I.V. 50 Duy Duy for sedation mcg Venu Lea RN RN 11:25:16 Versed I.V. 0.5 Duy Duy for sedation mg Venu Lea RN RN 11:32:06 Heparin Bolus I.V. 4000 Duy Duy for units Venu Lea anticoagulation RN public transportation inspector Log Time Note 10:33:28 Duy Lea RN sent for patient. Start room use. 10:33:29 Time tracking: Regular hours 10:33:33 Plan of Care:Hemodynamics will remain stable., Cardiac rhythm will remain stable., Comfort level will be maintained., Respiratory function will remain adequate., Patient/ family verbilizes understanding of procedure., Procedure tolerated without complication., Recovers from procedure without complications.. 10:43:21 Patient received from Pre/Post Procedure Room to CCL 1 Alert and oriented. Tansferred to table in Supine position. 10:43:23 Warm blankets applied, and dereje hugger turned on for patient comfort. 10:43:23 Correct patient and procedure confirmed by team. 10:43:24 Signed procedure consent form obtained from patient. 10:43:26 ECG and BP/O2 sat monitors applied to patient. 10:52:40 Vital chart was started 10:52:43 Rhythm: sinus rhythm 10:52:47 Full Disclosure recording started 10:52:52 H&P Date Dictated: 07/20/2017 Within 30 days and on chart., H&P Addendum completed by physician on day of procedure. (MUST COMPLETE FOR ALL OUTPATIENTS). 10:52:54 Pre-procedure instructions explained to patient. 10:52:54 Pre-op teaching completed and patient verbalized understanding. 10:52:56 Family in patients room. 10:52:58 Patient NPO since Midnight. 10:53:07 Is the patient allergic to Iodine/contrast media? No. 10:53:08 Is patient on blood thinner?Yes 10:53:11 ACC The patient was administered the following blood thiners within the last 24 hours: ACCAspirin, ACCPlavix 10:53:13 Patient diabetic? No. 10:54:09 Previous problem with sedation/anesthesia? No ? 10:54:10 Snore? Yes 10:54:10 Sleep apnea? No 10:54:11 Deviated septum? No 10:54:12 Opens mouth fully? Yes 10:54:13 Sticks out tongue? Yes 10:54:15 Airway obstruction? No ? 10:54:17 Dentures? Yes In 10:54:21 Pre procedure: left dorsailis pedis pulse 2+ Normal; easily identifiable; not easily obliterated 10:54:24 Patient pain scale 0/10 ?. 10:54:33 IV patent on arrival in left hand with 0.9% NaCl at [facility]. 10:54:35 Lab results completed and on chart. 10:54:40 Left groin area was prepped with chlora-prep and draped in sterile fashion 10:54:41 Alarms reviewed by R. N. 10:54:41 Sharps counted by scrub and verified by R.N. 10:54:56 Use device set CATH PACK 10:54:59 Use device set TAUTH PCI 10:55:00 0.9% NaCl 100 ml/hr I.V. was administered by Duy Lea RN; Per physician; 10:55:01 ACIST Syringe (87357) opened to sterile field. 10:55:01 ACIST Hand Control (37775) opened to sterile field. 10:55:01 ACIST Manifold (00621) opened to sterile field. 10:55:02 Medline Cath Pack ([id number]) opened to sterile field. 10:55:02 Bag Decanter (2002) opened to sterile field. 10:55:03 DIAGNOSTIC WIRE .035 260cm J wire (870264) opened to sterile field. 10:55:10 Oxygen 2 l/min NC was administered by Duy Lea RN; Per physician; 10:55:11 PERCUTANEOUS ENTRY 19GA needle opened to sterile field. 10:55:24 Heparin Flush Bag (1000units/500ml NS) 2 bags added to field was administered by Duy Lea RN; used for procedure; 10:55:39 Lidocaine 2% 20ml vial added to field was administered by Duy Lea RN; for local anesthetic; 10:56:03 INFLATOR Merit BasixCompak (QY1259) opened to sterile field. 10:56:05 SHEATH 6FR [place]hton (FWF139) opened to sterile field. 10:57:55 Zero performed for pressure channel P1 10:59:54 Baseline sample Acquired. 11:17:50 Final Timeout: patient, procedure, and site verified with staff and physician. All members of the team are in agreement. 11:17:53 Left groin site verified by team. 11:17:56 Physical assessment completed. ASA score P 2 - A patient with mild systemic disease as per Curly Baptiste MD. 11:17:59 Sedation plan: IV Moderate Sedation Medication:Versed, Fentanyl 11:18:23 Versed 0.5 mg I.V. was administered by Duy Lea RN; for sedation; 11:18:33 Fentanyl 50 mcg I.V. was administered by Duy Lea RN; for sedation; 11:20:15 CHOICE PT Extra Support 182cm wire ([id number]) opened to sterile field. 11:22:54 Procedure started. 11::57 Local anesthetic to left femerol artery with Lidocaine 2% by Curly Baptiste MD.INITIAL ACCESS ONLY 11:25:16 Versed 0.5 mg I.V. was administered by Duy Lea RN; for sedation; 11:25:17 A 6 Fr Short sheath was inserted into the Left Femoral artery 11:25:35 A DIAGNOSTIC IMT 5Fr Catheter ([id number]) was advanced over the wire and used for Lower extremity arteriography. Right, Removed; Unable to advance down Rt Iliac 11:26:01 Terumo Super Stiff Angled 260cm glide wire opened to sterile field. 11:26:50 Catheter removed. 11:27:58 A DIAGNOSTIC UF 5Fr catheter (823357I7) was advanced over the wire and used for Lower extremity arteriography. Right 11:28:05 TORQUE DEVICE PLASTIC .038 ( TD01) opened to sterile field. 11:29:43 Catheter removed. 11:29:52 6 Fr XB 4.0 guide catheter was inserted over the wire 11:30:42 GUIDE 6FR XB 4.0 catheter ([id number]) opened to sterile field. 11:31:21 Guide Catheter removed. unable to cannulate vessel. 11:31:31 GUIDE 6FR XBLAD 3.5 catheter (14941838) opened to sterile field. 11:31:47 6 Fr XBLAD 3.5 guide catheter was inserted over the wire 11:32:06 Heparin Bolus 4000 units I.V. was administered by Duy Lea RN; for anticoagulation; 11:33:16 CHOICE PT ES wire advanced. 11:35:08 Inflation Number: 1 A PAULA RX 3.5 x 12 stent ([id number]) was prepped and advanced across the Mid CX. The stent was deployed at 17 ENOC for 0:13 (min:sec). 11:35:51 Stent catheter was removed intact over wire. 11:38:12 Inflation Number: 2 A PAULA RX 3.5 x 08 stent ([id number]) was prepped and advanced across the Mid CX. The stent was deployed at 11 ENOC for 0:08 (min:sec). 11:38:35 Stent catheter was removed intact over wire. 11:38:35 Wire removed. 11:38:36 Guide catheter removed. 11:38:53 Sheath removed intact; hemostasis achieved with Exoseal to the Left Femoral artery. 11:38:59 Procedure ended.(Physican Out) 11:39:09 Fluoroscopy time 05.50 minutes. 11:39:17 Flurop Dose total: 603 11:39:17 Fluoroscopy dose: 603 mGy 11:39:20 Contrast amount:Isovue 300 98ml. 11:39:22 Sharps counted by scrub and verified by R.N. 11:39:26 Insertion/operative site no bleeding no hematoma. 11:39:30 Post-op/insertion site Right Femoral artery dressed using a 4 x 4 and Tegaderm. 11:39:36 Post right femoral artery:stable, soft, clean and dry 11:39:38 Post Procedure Pulses reassessed and unchanged 11:39:41 Post-procedure physical assessment completed. ASA score P 2 - A patient with mild systemic disease as per Curly Baptiste MD. 11:39:44 Post procedure rhythm: unchanged. 11:39:49 Estimated blood loss: 10 ml 11:39:51 Post procedure instruction explained to patient.Patient verbalizes understanding. 11:39:52 Patient needs reinforcement of post procedure teaching. 11:40:35 Procedure type changed to Cath procedure, PCI procedure, Coronary Stent, Coronary Stent Initial, Miscellaneous Procedures, Moderate Sedation up to 30 minutes, Peripheral Cath Diagnostic Procedure, Abd/Extremity, Extremities, Right Lower Ext Arterio 11:40:41 Procedure Complication : No complications 11:40:44 See physician's report for complete and final results. 11:44:05 EXOSEAL 6Fr (EX600) opened to sterile field. 11:45:17 Procedure and supply charges have been captured, reviewed, submitted and are correct. 11:45:18 Vital chart was stopped 11:45:20 Report given to Pre/Post Procedure Room. 11:45:23 Patient transfered to Pre/Post Procedure Room with Stretcher. 11:46:17 Procedure ended. 11:46:17 Full Disclosure recording stopped 11:46:20 End room use (Document Last) Intervention Summary Intervention Notes Time ActionType Lesion and Equipment Used Action# Pressure Duration Attributes 11:35:08 Place stent Mid CX PAULA RX 3.5 x 1 17 00:13 12 stent ([id number]) 11:38:12 Place stent Mid CX PAULA RX 3.5 x 2 11 00:08 08 stent ([id number]) Device Usage Item Name Manufacture Quantity Catalog Number Hospital Part Current M inimal Lot# / Charge Number Stock Stock Serial# Code ACIST Syringe Acist 1 09179 768281 049710 590482 2 0 (83787) Medical Systems Inc ACIST Hand Acist 1 41218 543128 323404 149597 5 Control Medical (72515) Systems Inc ACIST Manifold Acist 1 61207 636235 095511 941748 5 (83274) Medical Systems Inc Medline Cath Cardinal 1 [id number] 285203 15436 746977 5 Pack Health ([id number]) Bag Decanter Microtek 1 091980 15501 965748 5 () Medical Inc. DIAGNOSTIC St Naveed 1 477093 812470 071752 939478 3 0 WIRE .035 260cm J wire (354626) PERCUTANEOUS Cook Medical 1 J36263 953122 205692 5 ENTRY 19GA needle INFLATOR Merit Merit 1 KA8699 692398 174519 339083 1 5 [facility] (HB0329) SHEATH 6FR Terumo 1 FHF460 817927 238194 927470 4 0 Ashton (GMQ684) CHOICE PT Avon 1 [id number] 406541 450435 505198 5 Extra Support Scientific 182cm wire (3680944V9) DIAGNOSTIC IMT Avon 1 [id number] 935037 001456 64762 5 5Fr Catheter Scientific (038463623) Terumo Super Terumo 1 PG2013 359338 174758 817248 5 Stiff Angled 260cm glide wire DIAGNOSTIC UF Cardinal 1 [id number] 722759 684413 376507 1 0 5Fr catheter Mix & Meet (661917H1) TORQUE DEVICE [place]on 1 TD01 217122 563272 599738 5 PLASTIC .038 ( Scientific TD01) GUIDE 6FR XB Cardinal 1 [id number] 601294 024688 452904 2 4.0 catheter Health (82479382) GUIDE 6FR Cardinal 1 30207906 529891 032465 983050 1 0 XBLAD 3.5 Health catheter (24411747) PAULA RX 3.5 x Medtronic 1 [id number] 247378 8950710 380097 5 [id number] 12 stent ([id number]) PAULA RX 3.5 x Medtronic 1 [id number] 235415 8411625 887458 5 [id number] 08 stent ([id number]) EXOSEAL 6Fr Cardinal 1 EX600 484293 197288 651567 1 0 (EX600) Health Signature Audit [place] Stage Time Signature Unsigned Intra-Procedure 07/20/2017 Sridevi 11:46:35 AM Counts RT(R) Signatures Monitor : Sridevi Signature : Counts RT Date : Time : [facility] [address] [place] [address]
[~2017-07-20 08:26] MED LIST changes: +OMEGA 3 FISH OI1 CAP PO; +XALATAN 0.0052.5 ML LEFT EYE
[2017-07-20 09:26] VITALS: BP 151/63; Ht 149.9 cm; Wt 92.3 kg
[2017-07-20 09:53] LABS: BASOPHILS 0.4 % (0-2); EOSINOPHILS 3.6 % (0-7); HEMATOCRIT 38.8 % (36.0-48.0); HEMOGLOBIN 13.1 g/dL (12-16); IMMATURE GRANULOCYTES 0.2 % (0-5); LYMPHOCYTES 20.6 % (15-50); MCH 31.2 pg (26.0-34.0); MCHC 33.8 g/dL (31.0-37.0); MCV 92.4 fL (80.0-100.0); MEAN PLATELET VOLUME 9.8 fL (7.4-10.4); MONOCYTES 8.1 % (2-11); NEUTROPHILS 67.1 % (40-80); PLATELET COUNT 225 10x3/uL (130-400); RDW 12.3 % (11.5-14.5); WBC 8.6 10x3/uL (4.8-10.8)
[2017-07-20 10:23] LABS: ANION GAP 12.2 mmol/L (8-16); CALCIUM 9.2 mg/dL (8.5-10.1); CARBON DIOXIDE 26.6 mmol/L (21.0-32.0); CREATININE - SERUM 1.3 mg/dL (0.6-1.3); POTASSIUM - SERUM 3.8 mmol/L (3.5-5.1)
--- NOTE | 2017-07-20 12:15 | NUR ---
ALERT AND ORIENTED X4. LAYING FLAT IN BED. FAMILY AT BEDSIDE. LT GROIN DRESSING CLEAN DRY INTACT. PULSES PALPABLE BILATERALLY. BP-126/48. O2 99% RA. SINUS RHYTHM 76 ON TELEMETRY. DISCUSS WITH PATIENT AND FAMILY IMPORTANCE OF KEEPING LT LEG STRAIGHT AND HOB FLAT. FREE FROM BLEEDING. FREE FROM HEMATOMA. CONTINUE PLAN OF CARE. BED LOCKED AND LOW. CALL LIGHT IN REACH. TWO SIDERAILS UP.
--- NOTE | 2017-07-20 13:15 | NUR ---
ALERT AND ORIENTED X4. RESTING IN BED. HOB FLAT. FAMILY AT BEDSIDE. LT GROIN DRESSING CLEAN DRY INTACT. PULSES PALPABLE BILATERALLY. FREE FROM BLEEDING. FREE FROM HEMATOMA. DENIES ANY NEEDS. EMELI SOB OR CHEST PAIN. SINUS RHYTHM 91bpm ON TELEMETRY. CONTINUE PLAN OF CARE AND SAFETY PRECAUTIONS.
--- NOTE | 2017-07-20 14:15 | NUR ---
SLEEPING IN BED. FAMILY AT BEDSIDE. LT GROIN DRESSING CLEAN DRY INTACT. FREE FROM BLEEDING. FREE FROM HEMATOMA. DENIES ANY NEEDS. CONTINUE PLAN OF CARE AND SAFETY PRECAUTIONS.
--- NOTE | 2017-07-20 16:26 | NUR ---
ALERT AND ORIENTED X4. LT GROIN CLEAN DRY INTACT. FREE FROM BLEEDING FREE FROM HEMATOMA. DC LT HAND IV TIP INTACT. DISCHARGE INSTRUCTIONS GIVEN VERBALLY AND WRITTEN. DISCHARGE PAPERS SIGNED ON CHART. ASSIST GETTING DRESSED. SON BRINGS PERSONAL WHEELCHAIR. ASSIST TO WHEELCHAIR. ASSIST TO RESTROOM. SANDWICH TOLERATED. DENIES NAUSEA. ESCORT TO RIDE VIA PERSONAL WHEELCHAIR. REMAINS FREE FROM INJURY.
--- NOTE | 2017-07-27 15:46 | HP ---
PATIENT: CHRISTIAN GARCIAS MEDICAL RECORD: [id number] ACCOUNT: [id number] LOCATION:[facility] : 34 ADMISSION DATE: 07/20/17 HISTORY AND PHYSICAL EXAMINATION DIAGNOSES: 1. Angina. 2. Coronary artery disease. 3. Recent PTCA stent of the RCA with concomitant disease of the left circumflex. 4. Hypertension. 5. Hyperlipidemia. HISTORY OF PRESENT ILLNESS: Ms. Garcias presents with unstable angina, found to have 2-vessel disease to the RCA and left circumflex, underwent successful PTCA stent of the RCA. She is now brought back for PTCA stent of the circumflex in a staged fashion. PHYSICAL EXAMINATION: GENERAL APPEARANCE: Well-nourished, well-developed, appears stated age. Level of distress, comfortable. PSYCHIATRIC: Mental status, alert, normal affect. Orientation, oriented to time, place and person. EYES: Lids and conjunctiva, noninjected. No discharge, no pallor. ENT: Lips, teeth, gums, normal dentition. Oropharynx, no cyanosis, no pallor. NECK: Carotid arteries, bilateral normal upstroke, no bruits, no thrills. JUGULAR VEINS: No jugular venous pressure or distention. CERVICAL LYMPH NODES: Nontender, nonenlarged. THYROID: Not enlarged. Nontender. No nodules. LUNGS: Respiratory effort, unlabored. CHEST: Normal curvature. No thoracic deformity. No chest wall tenderness. Percussion, resonant. Auscultation, clear. No wheezes, no rales, no rhonchi. CARDIOVASCULAR: Precordial exam, nondisplaced. No heaves or pericardial thrills. Rate and rhythm, regular. Heart sounds, normal S1, normal S2. No S3, no gallop, no rub. Systolic murmur, not heard. Diastolic murmur, not heard. EXTREMITIES: No cyanosis, no edema. Peripheral pulses, full and equal in all extremities, except as noted. No bruits appreciated. ABDOMEN: Soft, nondistended. Normal aorta. No bruit. Nontender. No masses. Liver, nontender, no hepatomegaly. Spleen, nontender, no splenomegaly. MUSCULOSKELETAL: No joint tenderness. No joint swelling. No erythema. NEUROLOGICAL: Normal gait, normal strength, normal tone. SKIN: Warm and dry. REVIEW OF SYSTEMS: The patient reports easy bruising but reports no swollen glands. The patient reports no fever, no night sweats, no significant weight gain, no significant weight loss. No significant exercise tolerance. The patient reports no dry eyes, no irritation, no vision change. Patient reports no difficulty hearing and no ear pain. Patient reports no frequent nose bleeds or nose and sinus problems. Patient reports on arm pain on exertion. No shortness of breath while lying down. No history of heart murmur. Patient reports no cough, no wheezing or coughing up blood. Patient reports no abdominal pain, no vomiting. Normal appetite. No diarrhea and not vomiting blood. No nausea and no constipation. Patient reports no incontinence. No difficulty urinating. No hematuria. No increased frequency. Patient reports no muscle aches. No weakness, no arthralgias, no back pain. No swelling of the HISTORY AND PHYSICAL [id number] VIRNIG,CHRISTIAN MAY extremities. Patient reports no abnormal mole, no jaundice, no rashes. Reports no loss of consciousness. No weakness and no numbness. No seizures, dizziness, or headaches. The patient reports no depression, no sleep disturbance, feeling safe in a relationship and no alcohol abuse. Patient reports on fatigue. Reports no runny nose or sinus pressure. No itching, no hives, and no frequent sneezing. OVERALL IMPRESSION: Anginal symptomatology with significant disease of the circumflex. We will proceed with percutaneous transluminal coronary angioplasty stent of the circumflex. TRANSINT:[id number] Voice Confirmation ID: [id number] DOCUMENT ID: [id number] EDDIE VERMA MD at 1546 CC: [id number] DICTATION DATE: 07/20/17 1037 VACATION SALES ADVISOR: 07/20/17 1144 [facility] CLI 07/20/[address] [facility] [address] [id number]
--- NOTE | 2017-07-27 15:46 | OP ---
PATIENT NAME: CHRISTIAN GARCIAS MEDICAL RECORD: [id number] :33 LOCATION:D.CAT ADMISSION DATE: SURGEON: EDDIE VERMA MD DATE OF OPERATION: 07/20/2017 PROCEDURES: 1. PTCA stent to left circumflex. 2. Selective coronary angiography. 3. Unilateral lower extremity femoral and iliac angiography. INDICATION: Hematoma post-procedure, angina, and coronary artery disease. PROCEDURE IN DETAIL: After informed consent was obtained after detailed explanation of risks, benefits as well as alternative therapies, the patient elected to proceed with angiogram and angioplasty. The left femoral area was prepped and draped in normal sterile fashion. Left femoral artery was cannulated via modified Seldinger technique with placement of a 6-Bulgarian sheath. All catheters exchanged through this sheath. FINDINGS: 1. The right iliac and right femoral system were widely patent with no aneurysm, pseudoaneurysm, no continued dye extravasation. 2. Left circumflex has 80% stenosis in the mid vessel. This was addressed with a 3.5 x 12 and 3.5 x 8, both Maurizio stents. Result was 0% residual stenosis. OVERALL IMPRESSION: Successful percutaneous transluminal coronary angioplasty stent of the left circumflex going from 80% initial stenosis to 0% residual. TRANSINT:[id number] Voice Confirmation ID: [id number] DOCUMENT ID: [id number] EDDIE VERMA MD at 1546 CC: [id number] DICTATION DATE: 07/20/17 1143 MICROMATIC HONE OPERATOR: 07/20/17 1158 [facility] CLI 07/20/17 [place] [id number]
== END 2017-07-20 16:31 | disposition home or self-care (01) ==
LOC: D.CATH 08:26
PROVIDERS: Internal Medicine Interventional Cardiology
DX: I25.119 Atherosclerotic heart disease of native coronary artery with unspecified angina pectoris (principal); I10 Essential (primary) hypertension; E78.5 Hyperlipidemia, unspecified; Z95.5 Presence of coronary angioplasty implant and graft; Z01.812 Encounter for preprocedural laboratory examination

== ENCOUNTER 2017-07-23 11:12 | Emergency (ER) | payer MEDICARE, BC ==
[2017-07-20 09:26] VITALS: BMI 41.1
== END 2017-07-23 13:15 | disposition home or self-care (01) ==
LOC: D.ER 11:12
DX: R58 Hemorrhage, not elsewhere classified (principal); I10 Essential (primary) hypertension; I21.4 Non-ST elevation (NSTEMI) myocardial infarction

== ENCOUNTER → 2018-01-18 12:30 | Outpatient (CLI) | payer MEDICARE, BC ==
[2017-07-20 09:26] VITALS: BMI 41.1
== END | disposition home or self-care (01) ==
LOC: D.CT 12:30
DX: R10.9 Unspecified abdominal pain (principal); R10.2 Pelvic and perineal pain

== ENCOUNTER 2018-05-20 11:53 | Observation (INO) | payer MEDICARE, BC ==
[~2018-05-20] VITALS: Ht 149.9 cm; Wt 85.9 kg
--- NOTE | ~2018-05-20 | HP ---
PATIENT: CHRISTIAN GARCIAS MEDICAL RECORD: [id number] ACCOUNT: [id number] LOCATION:. D.2123 : 33 ADMISSION DATE: 05/20/18 PCP: ANTHONY FARR MD HISTORY AND PHYSICAL EXAMINATION CARDIOLOGY ADMIT NOTE DIAGNOSES: 1. Non-Q-wave myocardial infarction. 2. Unstable angina. 3. Coronary disease. 4. Previous PTCA and stent. 5. Hypertension. 6. Hyperlipidemia. HISTORY : Mrs. Garcias presents with anginal symptomatology, just like that of her previous angina, found to have mildly elevated troponin. Last cardiac stent was in July of last year. REVIEW OF SYSTEMS: The patient reports easy bruising but reports no swollen glands. The patient reports no fever, no night sweats, no significant weight gain, no significant weight loss. No significant exercise tolerance. The patient reports no dry eyes, no irritation, no vision change. Patient reports no difficulty hearing and no ear pain. Patient reports no frequent nose bleeds or nose and sinus problems. Patient reports on arm pain on exertion. No shortness of breath while lying down. No history of heart murmur. Patient reports no cough, no wheezing or coughing up blood. Patient reports no abdominal pain, no vomiting. Normal appetite. No diarrhea and not vomiting blood. No nausea and no constipation. Patient reports no incontinence. No difficulty urinating. No hematuria. No increased frequency. Patient reports no muscle aches. No weakness, no arthralgias, no back pain. No swelling of the extremities. Patient reports no abnormal mole, no jaundice, no rashes. Reports no loss of consciousness. No weakness and no numbness. No seizures, dizziness, or headaches. The patient reports no depression, no sleep disturbance, feeling safe in a relationship and no alcohol abuse. Patient reports on fatigue. Reports no runny nose or sinus pressure. No itching, no hives, and no frequent sneezing. PHYSICAL EXAMINATION: GENERAL APPEARANCE: Well-nourished, well-developed, appears stated age. Level of distress, comfortable. PSYCHIATRIC: Mental status, alert, normal affect. Orientation, oriented to time, place and person. EYES: Lids and conjunctiva, noninjected. No discharge, no pallor. ENT: Lips, teeth, gums, normal dentition. Oropharynx, no cyanosis, no pallor. NECK: Carotid arteries, bilateral normal upstroke, no bruits, no thrills. JUGULAR VEINS: No jugular venous pressure or distention. CERVICAL LYMPH NODES: Nontender, nonenlarged. THYROID: Not enlarged. Nontender. No nodules. LUNGS: Respiratory effort, unlabored. CHEST: Normal curvature. No thoracic deformity. No chest wall tenderness. Percussion, resonant. Auscultation, clear. No wheezes, no rales, no rhonchi. CARDIOVASCULAR: Precordial exam, nondisplaced. No heaves or pericardial thrills. Rate and rhythm, regular. Heart sounds, normal S1, normal S2. No S3, no gallop, no rub. Systolic murmur, not heard. Diastolic murmur, not heard. HISTORY AND PHYSICAL [id number] CHRISTIAN GARCIAS NOVEMBER EXTREMITIES: No cyanosis, no edema. Peripheral pulses, full and equal in all extremities, except as noted. No bruits appreciated. ABDOMEN: Soft, nondistended. Normal aorta. No bruit. Nontender. No masses. Liver, nontender, no hepatomegaly. Spleen, nontender, no splenomegaly. MUSCULOSKELETAL: No joint tenderness. No joint swelling. No erythema. NEUROLOGICAL: Normal gait, normal strength, normal tone. SKIN: Warm and dry. OVERALL IMPRESSION: Unstable angina with mildly elevated troponin, compatible with small non-Q-wave myocardial infarction. Most likely, she has recurrent hemodynamically significant coronary disease. We will proceed with coronary angiography. Further care depends upon the findings of the angiography. She has not tolerated beta-blockers in the past. We will not try beta-joseph again. We will leave her on her Avalide that she is on and she is already on a statin in the form of pravastatin as well as aspirin and Plavix; hence, no other medical therapy is needed at this time. TRANSINT:[id number] Voice Confirmation ID: [id number] DOCUMENT ID: [id number] EDDIE VREMA MD at 1914 CC: [id number] DICTATION DATE: 05/21/18 112 BOAT FUELER: 05/21/18 1214 DIS IN 05/22/18 [facility] [address] [place] [address]
--- NOTE | ~2018-05-20 | HEMODYNAMI ---
PATIENT:CHRISTIAN GARCIAS NOVEMBER MEDICAL RECORD: [id number] : 33 [id number] AD[facility]ION DATE: 05/20/18 Generatedon:05/22/201810:02 Patient name: CHRISTIAN GARCIAS Patient #: [id number] SSN: : 1935 Date of study: 05/22/2018 Page: Of Hemodynamic Procedure Report Patient Data Patient Demographics Procedure consent was obtained First Name: CHRISTIAN Gender: Female Last Name: DIETER : 1935 Middle Initial: NOVEMBER Age: 82 year(s) Patient #: [id number] Race: Additional ID: [id number] Contact details Address: [address] [place] [address] State: [place] City: [facility] Zip code: [address] Past Medical History Allergies Allergen Reaction Date Comments Reported Other allergy 05/22/2018 duloxetine Admission Admission Data Admission Date: 05/20/2018 Admission Time: 13:47 Admit Source: Other Room #: D.2123 Procedure Procedure Types Cath Procedure Diagnostic Procedure LHC [facility] w/Coronaries FFR/IVUS Intra-Coronary IVUS Initial Intra-Coronary IVUS Additional PCI Procedure Coronary Stent Coronary Stent Initial PTCA PTCA Initial Procedure Description Procedure Date Procedure Date: 05/22/2018 Procedure Start Time: 9:36 Procedure End Time: 10:01 Procedure Staff Name Function Curly Baptiste MD Performing Physician Juan Carlos Palencia RT Scrub Olive Goff RN Nurse Larry Rawls RT Monitor Procedure Data Cath Procedure Fluoroscopy Diagnostic fluoroscopy Total fluoroscopy Time: 5.5 time: 5.5 min min Diagnostic fluoroscopy Total fluoroscopy dose: dose: 451.32 mGy 451.32 mGy Contrast Material Contrast Material Type Amount (ml) Isovue 300 94 Entry Location Entry Primary Successful Side Size Upsize Upsize Entry Closure Succes sful Closure Location (Fr) 1 (Fr) 2 (Fr) Remarks Device Remarks Femoral Right 5 Fr 6 Fr Exoseal artery Short Estimated blood loss: 20 ml Diagnostic catheters Device Type Used For End Catheter Placement MULTIPACK Pigtail 5 Fr Procedure catheter MULTIPACK JL 4.0 5Fr Procedure catheter MULTIPACK 3DRC 5Fr Procedure catheter Procedure Medications Medication Administration Route Dosage Oxygen etCO2 Nasal cannula 2 l/min Lidocaine 2% added to field 20 Heparin Flush Bag added to field 2 bags (1000units/500ml NS) 0.9% NaCl I.V. 100 ml/hr Versed I.V. 1 mg Fentanyl I.V. 50 mcg Heparin Bolus I.V. 4000 units Versed I.V. 1 mg Fentanyl I.V. 50 mcg Hemodynamics Rest Heart Rate: 72 (bpm) Pressure Samples Time Site Value (mmHg) Purpose Heart Use Rate(bpm) 9:38 LV 68/13,9 Snapshot 84 Snapshots Pre Cath Intra NCS Post Cath Vital Signs Time Heart Resp SPO2 etCO2 NIBP (mmHg) Rhythm Pain Sedation Rate (ipm) (%) (mmHg) Status Level (bpm) 9:20:39 74 19 96 41.6 166/72(120) NSR 0 (11) 10(A) , No pain 9:25:19 70 20 97 15.9 144/63(101) NSR 0 (11) 10(A) , No pain 9:30:04 68 14 99 26.6 141/58(116) NSR 0 (11) 10(A) , No pain 9:34:40 77 16 96 26 130/57(95) NSR 0 (11) 10(A) , No pain 9:40:41 78 12 97 0 130/54(103) NSR 0 (11) 9(A) , No pain 9:45:17 85 12 95 2.2 138/60(99) NSR 0 (11) 9(A) , No pain 9:49:58 89 12 93 13.6 123/55(94) NSR 0 (11) 9(A) , No pain 9:55:46 90 18 98 37 166/74(124) NSR 0 (11) 10(A) , No pain 10:00:37 84 14 97 38.5 167/72(124) NSR 0 (11) 10(A) , No pain Medications Time Medication Route Dose Verified Delivered Reason Notes Effectiveness by by 9:23:04 Oxygen etCO2 2 Curly Schaefer used for Nasal l/min Oliva Goff coal conveyor operator cannula 9:23:11 Lidocaine 2% added 20ml Curly Curly for local to vial Oliva Baptiste MD anesthetic field 9:23:57 Heparin Flush added 2 Curly Curly used for Bag to bags Oliva Baptiste MD procedure (1000units/500ml field NS) 9:24:08 0.9% NaCl I.V. 100 Curly Buffie Per physician ml/hr Oliva Goff RN 9:36:14 Versed I.V. 1 mg Curly Yanezie for sedation Oliva Goff RN 9:36:20 Fentanyl I.V. 50 Curly Buffie for sedation mcg Oliva Goff RN 9:44:18 Heparin Bolus I.V. 4000 Curly Buffie for verifi ed units Oliva Goff RN anticoagulation with dr baptiste 9:46:02 Fentanyl I.V. 50 Curly Buffie for sedation mcg Oliva Goff RN 9:46:57 Versed I.V. 1 mg Curly Yanezie for sedation Oliva Goff RN Procedure Log Time Note 8:44:19 Informed consent obtained and on chart 8:44:21 Admit Source: Other 8:44:39 Diagnostic Cath status Elective 8:44:41 Olive Goff RN sent for patient. Start room use. 8:44:41 Time tracking: Regular hours (M-F 7:00 - 5:00) 8:44:45 Plan of Care:Hemodynamics will remain stable., Cardiac rhythm will remain stable., Comfort level will be maintained., Respiratory function will remain adequate., Patient/ family verbilizes understanding of procedure., Procedure tolerated without complication., Recovers from procedure without complications.. 8:48:22 H&P Date Dictated: 05/20/2018 Within 30 days and on chart.. 9:00:09 Patient received from Med II to CCL 3 Alert and oriented. Tansferred to table in Supine position. 9:00:10 Warm blankets applied, and dereje hugger turned on for patient comfort. 9:00:10 Correct patient and procedure confirmed by team. 9:00:11 ECG and BP/O2 sat monitors applied to patient. 9:00:12 Pre-procedure instructions explained to patient. 9:00:12 Pre-op teaching completed and patient verbalized understanding. 9:00:13 Family in waiting room. 9:00:15 Patient NPO since Midnight. 9:18:04 Patient allergic to Other allergyduloxetine 9:18:05 Is the patient allergic to Iodine/contrast media? No. 9:18:07 Is patient on blood thinner?Yes 9:18:11 ACC The patient was administered the following blood thiners within the last 24 hours: ACCPlavix 9:18:12 Patient diabetic? No. 9:18:14 Previous problem with sedation/anesthesia? No ? 9:18:15 Snore? Yes 9:18:16 Sleep apnea? No 9:18:17 Deviated septum? No 9:18:18 Opens mouth fully? Yes 9:18:18 Sticks out tongue? Yes 9:18:20 Airway obstruction? No ? 9:18:24 Dentures? Yes partial in tight 9:18:26 Pre procedure: right dorsailis pedis pulse 2+ Normal; easily identifiable; not easily obliterated 9:18:28 Patient pain scale 0/10 ?. 9:18:33 IV patent on arrival in right wrist with 0.9% NaCl at [facility]. 9:18:36 Lab results completed and on chart. 9:18:38 Right groin area was prepped with chlora-prep and draped in sterile fashion 9:18:39 Alarms reviewed by R. N. 9:18:39 Sharps counted by scrub and verified by R.N. 9:18:41 Use device set Femoral Dx 9:18:42 ACIST Syringe (86782) opened to sterile field. 9:18:42 Bag Decanter (2002) opened to sterile field. 9:18:43 Medline Cath Pack ([id number]) opened to sterile field. 9:18:44 ACIST Hand Control (32309) opened to sterile field. 9:18:44 ACIST Manifold (03119) opened to sterile field. 9:18:45 Tegaderm 4 x 4 (1626W) opened to sterile field. 9:18:46 SHEATH Prelude 5Fr 0.035 (KGL-7Z-09-035) opened to sterile field. 9:18:48 DIAGNOSTIC WIRE .035 260cm J wire (009845) opened to sterile field. 9:18:49 DIAGNOSTIC Multipack 5Fr catheter set (JC4199) opened to sterile field. 9:18:52 Vital chart was started 9:18:53 Baseline sample Acquired. 9:18:55 Rhythm: sinus rhythm 9:18:56 Full Disclosure recording started 9:23:04 Oxygen 2 l/min etCO2 Nasal cannula was administered by Olive Goff RN; used for procedure; 9:23:11 Lidocaine 2% 20ml vial added to field was administered by Curly Baptiste MD; for local anesthetic; 9:23:57 Heparin Flush Bag (1000units/500ml NS) 2 bags added to field was administered by Curly Baptiste MD; used for procedure; 9:24:08 0.9% NaCl 100 ml/hr I.V. was administered by Olive Goff RN; Per physician; 9:32:45 Zero performed for pressure channel P1 9:35:59 Physician arrived 9:35:59 --------ALL STOP TIME OUT------ 9:36:00 Final Timeout: patient, procedure, and site verified with staff and physician. All members of the team are in agreement. 9:36:02 Right groin site verified by team. 9:36:05 Physical assessment completed. ASA score P 2 - A patient with mild systemic disease as per Curly Batpiste MD. 9:36:08 Sedation plan: IV Moderate Sedation Medication:Versed, Fentanyl 9:36:14 Versed 1 mg I.V. was administered by Olive Goff RN; for sedation; 9:36:20 Fentanyl 50 mcg I.V. was administered by Olive Goff RN; for sedation; 9:36:29 Procedure started. 9:36:52 Local anesthetic to right femoral artery with Lidocaine 2% by Curly Baptiste MD.INITIAL ACCESS ONLY 9:37:13 A 5 Fr sheath was inserted into the Right Femoral artery 9:37:30 A MULTIPACK Pigtail 5 Fr catheter was advanced over the wire and used for Procedure. 9:38:39 LV gram done using WILHELM 9:38:40 LV hemodynamics recorded. 9:38:46 EF : 60 % 9:38:57 Catheter removed. 9:39:15 A MULTIPACK JL 4.0 5Fr catheter was advanced over the wire and used for Procedure. 9:39:58 LCA angiography performed. 9:40:45 Catheter removed. 9:40:51 A MULTIPACK 3DRC 5Fr catheter was advanced over the wire and used for Procedure. 9:41:53 SHEATH Prelude 6Fr 0.035 (XUG-9W-47-035) opened to sterile field. 9:41:55 CHOICE PT Extra Support 182cm wire ([id number]) opened to sterile field. 9:41:56 INFLATOR Merit BasixCompak (XX5578) opened to sterile field. 9:42:07 RCA angiography performed. 9:43:03 Catheter removed. 9:43:05 Proceeding to intervention. 9:43:46 GUIDE 6FR EBU 3.5 catheter ([id number]) opened to sterile field. 9:44:18 Heparin Bolus 4000 units I.V. was administered by Olive Goff RN; for anticoagulation; verified with dr baptiste 9:44:28 Sheath upsized to a 6 Fr Short. 9:44:38 6 Fr EBU 3.5 guide catheter was inserted over the wire 9:44:59 Langtry Story Eagleye IVUS Catheter (51276N) opened to sterile field. 9:46:02 Fentanyl 50 mcg I.V. was administered by Olive Goff RN; for sedation; 9:46:07 CHOICE wire advanced. 9:46:34 FFR/IVUS 9:46:35 IVUS catheter advanced over wire. 9:46:57 Versed 1 mg I.V. was administered by Olive Goff RN; for sedation; 9:48:28 IVUS pass to Circ lesion performed. 9:48:30 IVUS catheter removed over wire. 9:48:44 Wire redirected to LAD. 9:48:49 FFR/IVUS 9:48:50 IVUS catheter advanced over wire. 9:48:52 IVUS pass to LAD lesion performed. 9:48:54 IVUS catheter removed over wire. 9:49:45 Procedure type changed to Cath procedure, Diagnostic procedure, LHC, LHC w/Coronaries, FFR/IVUS, Intra-Coronary IVUS Initial, Intra-Coronary IVUS Additional, PCI procedure, Coronary Stent, Coronary Stent Initial, PTCA, PTCA Initial 9:51:12 Place stent Inflation Number: 1 A PAULA RX 3.5 x 26 stent ([id number]) was prepped and advanced across the Mid LAD. The stent was deployed at 17 ENOC for 0:10 (min:sec). 9:51:52 Stent catheter was removed intact over wire. 9:51:58 Wire redirected to CIRC. 9:52:07 Stent balloon re-inserted over wire. 9:53:07 Inflation number: 1 The stent balloon was then re-inflated across the Mid CX to 17 ENOC for 0:10 (min:sec). 9:55:39 Stent catheter was removed intact over wire. 9:55:40 Wire removed. 9:55:41 Guide catheter removed. 9:55:53 EXOSEAL 6Fr (EX600) opened to sterile field. 9:56:21 Sheath removed intact; hemostasis achieved with Exoseal to the Right Femoral artery. 9:56:24 Procedure ended.(Physican Out) 9:56:29 Fluoroscopy time 05.50 minutes. 9:56:37 Fluoroscopy dose: 451.32 mGy 9:56:37 Flurop Dose total: 451.32 9:56:43 Contrast amount:Isovue 300 94ml. 9:56:44 Sharps counted by scrub and verified by R.N. 10:00:36 Post-op/insertion site Right Femoral artery dressed using a 4 x 4 and Tegaderm. 10:00:41 Post right femoral artery:stable 10:00:52 Post procedure: right dorsailis pedis pulse 2+ Normal; easily identifiable; not easily obliterated. 10:00:56 Post-procedure physical assessment completed. ASA score P 2 - A patient with mild systemic disease as per Curly Baptiste MD. 10:01:02 Post procedure rhythm: sinus rhythm 10:01:06 Estimated blood loss: 20 ml 10:01:08 Post procedure instruction explained to patient.Patient verbalizes understanding. 10:01:08 Patient needs reinforcement of post procedure teaching. 10:01:10 Procedure and supply charges have been captured, reviewed, submitted and are correct. 10:01:12 Vital chart was stopped 10:01:12 See physician's report for complete and final results. 10:01:30 Report given to Med II. 10:01:36 Patient transfered to Med II with Bed. 10:01:39 Procedure ended. 10:01:39 Full Disclosure recording stopped 10::43 End room use (Document Last) Intervention Summary Intervention Notes Time ActionType Lesion and Equipment Used Action# Pressure Duration Attributes 9:51:12 Place stent Mid LAD PAULA RX 3.5 x 1 17 00:10 26 stent ([id number]) 9:53:07 Reinflate Mid CX PAULA RX 3.5 x 1 17 00:10 stent 26 stent balloon ([id number]) Device Usage Item Name Manufacture Quantity Catalog Number Hospital Part Current Minimal Lot# / Charge Number Stock Stock Serial# Code ACIST Syringe Acist 1 82250 070432 629236 [id number] 20 (11598) [employer] Bag Decanter Microtek 1 2001S 664713 35694 672568 5 (2001S) Medical Inc. Medline Cath Medline 1 [id number] 089211 44041 905251 5 Pack ([id number]) ACIST Hand Acist 1 56767 971061 047331 355085 5 Control (89024) [employer] ACIST Manifold Acist 1 19507 748254 346749 220355 5 (23985) [employer] Inc Tegaderm 4 x 4 3M 1 1626W 772969 206601 470161 5 (1626W) SHEATH Prelude Merit 1 BGD-0K-01-035 888569 621549 311268 5 5Fr 0.035 Medical (UYC-7R-64-035) DIAGNOSTIC WIRE St Naveed 1 630407 766955 360465 100528 30 .035 260cm J wire (851479) DIAGNOSTIC Cardinal 1 [id number] 265400 57449 367250 30 Multipack 5Fr Health catheter set (JN2363) MULTIPACK Cardinal 1 071178 5 Pigtail 5 Fr Health catheter MULTIPACK JL Cardinal 1 752710 5 4.0 5Fr Health catheter MULTIPACK 3DRC Cardinal 1 452378 5 5Fr catheter Health SHEATH Prelude Merit 1 UJP-7C-57-35 265218 3634719 764079 5 6Fr 0.035 Medical (DOE-0F-62-035) CHOICE PT Extra Cavour 1 [id number] 341571 712973 920452 5 Support 182cm Scientific wire ([id number]) INFLATOR Merit Merit 1 [id number] 448391 933026 300793 15 ClearwavencManhattan Labs Medical (NX0675) GUIDE 6FR EBU Medtronic 1 [id number] 654854 54204 170010 3 3.5 catheter ([id number]) Langtry Langtry 1 88426G 759478 428749 327445 8 Story Eagleye IVUS Catheter (65290L) PAULA RX 3.5 x Medtronic 1 [id number] 791990 4343386 570670 5 [id number] 26 stent ([id number]) EXOSEAL 6Fr Cardinal 1 EX600 288022 429513 009267 10 (EX600) Health Signature Audit [place] Stage Time Signature Unsigned Intra-Procedure 05/22/2018 Larry Rawls 10:02:41 AM RT(R) (CV) Signatures Monitor : Larry Rawls RT Signature : Date : Time : [place] [id number] [place] [address]
--- NOTE | ~2018-05-20 | DS ---
PATIENT:CHRISTIAN AGRCIAS NOVEMBER :33 MEDICAL RECORD: [id number] DISCHARGE SUMMARY ADMISSION DATE: 05/20/18 DISCHARGE DATE: 05/22/18 DISCHARGE DIAGNOSES: 1. Unstable angina. 2. Coronary artery disease. 3. Percutaneous transluminal coronary angioplasty and stent to the left anterior descending and percutaneous transluminal coronary angioplasty to the left circumflex this admission. 4. Hypertension. 5. Hyperlipidemia. HOSPITAL COURSE: Ms. Garcias presents with anginal symptomatology in an unstable fashion and found to have 2-vessel coronary artery disease, in-stent restenosis of the LAD and circumflex, underwent PTCA and stent of the LAD and PTCA high pressure of the left circumflex, discharged home with no further anginal symptomatology. Follow up with [facility] in 1 month. TRANSINT:[id number] Voice Confirmation ID: [id number] DOCUMENT ID: [id number] EDDIE VERMA MD at 1914 CC: [id number] DICTATION DATE: 05/22/1859 FOOD AND BEVERAGE INTERN: 05/22/18 2319 DIS IN 05/22/18 [facility] [address] [place] [address]
--- NOTE | ~2018-05-20 | MORECARE ---
CASE MANAGEMENT DISCHARGE SUMMARY PATIENT: CHRISTIAN GARCIAS MAY UNIT: [id number] ADM DATE: 05/20/18 AGE: 82 : 34 SEX: F ROOM/BED: D.3913 AUTHOR: JAMES STEVENSON PHYSICIAN: REFERRING PHYSICIAN: EDDIE VERMA MD DATE OF SERVICE: 05/23/18 Discharge Plan Patient Name: CHRISTIAN GARCIAS Facility: [facility]:[place] : 1935 Planned Disposition: Home Anticipated Discharge Date: 05/22/18 Discharge Date: 05/22/2018 Expected LOS: 2 Initial Reviewer: [email or web address] Initial Review Date: 05/23/2018 Generated: 05/23/18 9:13 am Patient Name: CHRISTIAN GARCIAS Page 44233 at 0813 All edits/amendments must be made on the electronic document DICTATION DATE: 05/23/18811 BARREL ASSEMBLER HELPER: DM 05/23/18811 RPT#: [id number] DC DATE:05/22/18 STATUS: DIS IN [facility] [address] [place] [address] END OF REPORT
--- NOTE | ~2018-05-20 | OP ---
PATIENT NAME: CHRISTIAN GARCIAS MEDICAL RECORD: [id number] :33 LOCATION:D.M2 D.2123 ADMISSION DATE:05/20/18 SURGEON: EDDIE VERMA MD DATE OF OPERATION: 05/22/2018 PROCEDURES: 1. PTCA and stent to the LAD. 2. PTCA, left circumflex. 3. Intravascular ultrasound of the LAD. 4. Intravascular ultrasound of the left circumflex. 5. Left heart catheterization. 6. Selective coronary angiography. 7. Left ventriculogram. INDICATIONS: Angina and coronary artery disease. PROCEDURE IN DETAIL: After informed consent was obtained and after a detailed description of risks, benefits as well as alternative therapies, the patient elected to proceed with angiogram and angioplasty. The right femoral area was prepped and draped in normal sterile fashion. Right femoral artery was cannulated via modified Seldinger technique with placement of 6-Mauritanian sheath. All catheters exchanged through this sheath. FINDINGS: The left ventriculogram was performed in standard 30-degree WILHELM view, reveals good cardiac wall motion throughout all segments. Overall ejection fraction estimated 60%. SELECTIVE CORONARY ANGIOGRAPHY: 1. Left main is with no significant angiographic disease. 2. Left anterior descending has previously placed stents proximally. Intravascular ultrasound reveals there is 85% in-stent restenosis. 3. The left circumflex has previously placed stents. Intravascular ultrasound reveals there is 85% in-stent restenosis in the mid distal vessel. 4. The right coronary is small, nondominant, but there are previously placed stents, these are widely patent. PTCA AND STENT OF THE LAD: The stent used was a 3.5 x 26 mm Crowley. Result was 0% residual stenosis throughout. The stent balloon was then used for the circumflex dilated to 17 atmospheres. Result was 0% residual throughout. OVERALL IMPRESSION: Successful percutaneous transluminal coronary angioplasty stent of the left anterior descending and PTCA of the left circumflex, both going from 85% initial stenosis to 0% residual. TRANSINT:[id number] Voice Confirmation ID: [id number] DOCUMENT ID: [id number] OPERATIVE REPORT [id number] CHRISTIAN GARCIAS EDDIE VERMA MD at 1914 CC: [id number] DICTATION DATE: 05/22/18 1001 MAIL OPENER: 05/22/18 1215 DIS IN 05/22/18 [facility] [address] [place] [address]
[2018-05-20 12:20] VITALS: BP 175/75
[2018-05-20 12:42] LABS: BASOPHILS 0.7 % (0-2); EOSINOPHILS 2.5 % (0-7); HEMATOCRIT 40.3 % (36.0-48.0); HEMOGLOBIN 13.6 g/dL (12-16); IMMATURE GRANULOCYTES 0.3 % (0-5); LYMPHOCYTES 16.6 % (15-50); MCH 31.3 pg (26.0-34.0); MCHC 33.7 g/dL (31.0-37.0); MCV 92.6 fL (80.0-100.0); MEAN PLATELET VOLUME 9.6 fL (7.4-10.4); MONOCYTES 8.4 % (2-11); NEUTROPHILS 71.5 % (40-80); PLATELET COUNT 204 10x3/uL (130-400); RBC 4.35 10x6/uL (4.00-5.40); RDW 12.4 % (11.5-14.5); WBC 7.2 10x3/uL (4.8-10.8)
[2018-05-20 12:50] VITALS: BP 160/80
[2018-05-20 13:00] LABS: ALBUMIN 3.4 g/dL (3.4-5.0); ALKALINE PHOSPHATASE 66 U/L (46-116); ALT (SGPT) 27 U/L (10-68); BILIRUBIN - TOTAL 0.49 mg/dL (0.2-1.3); CALC OSMOLALITY 284 mosm/kg (275-300); CARBON DIOXIDE 28.5 mmol/L (21.0-32.0); CHLORIDE - SERUM 103 mmol/L (98-107); CREATININE - SERUM 1.2 mg/dL (0.6-1.3); POTASSIUM - SERUM 4.5 mmol/L (3.5-5.1); PROTEIN - SERUM 6.9 g/dL (6.4-8.2); SODIUM 139 mmol/L (136-145); UREA NITROGEN 25 mg/dL (7-18); eGFR NON AFRICAN AMERICAN 45 mL/min (90-120)
[2018-05-20 13:01] LABS: GLUCOSE 153 mg/dL (74-106)
[2018-05-20 13:10] VITALS: BP 153/72
[2018-05-20 13:16] LABS: CREATINE KINASE 174 UL (21-215); PRO BNP 928 pg/mL (0-450)
[2018-05-20 13:18] LABS: TROPONIN-I 0.153 ng/mL (0.000-0.060)
[2018-05-20 14:03] VITALS: BP 134/71
[2018-05-20] MEDS ORDERED: NORCO 10-325 TA1 TAB PO (15:15)
[2018-05-20] MEDS ORDERED: PRAVASTATIN SOD10 MG PO (15:20)
[2018-05-20 15:35] VITALS: BP 153/69; Ht 149.9 cm; Wt 85.9 kg
[2018-05-20 17:44] LABS: APPEARANCE CLOUDY (CLEAR); BILIRUBIN NEGATIVE (NEGATIVE); COLOR YELLOW (YELLOW); GLUCOSE NEGATIVE (NEGATIVE); KETONE NEGATIVE (NEGATIVE); NITRITE NEGATIVE (NEGATIVE); PROTEIN NEGATIVE (NEGATIVE); UROBILINOGEN NORMAL (NORMAL)
[2018-05-20 17:46] LABS: RED CELLS - URINE 0-5 /hpf (0-5); WHITE CELLS - URINE 0-5 /hpf (0-5)
[2018-05-20 17:49] LABS: BACTERIA FEW /hpf (NONE SEEN)
[2018-05-20 20:12] VITALS: BP 139/44
[2018-05-21 00:20] VITALS: BP 123/60
[2018-05-21 04:49] VITALS: BP 108/46
[2018-05-21 08:52] VITALS: BP 123/48
[2018-05-21 11:02] VITALS: BP 151/52
[2018-05-21 15:44] VITALS: BP 134/48
[2018-05-21 21:59] VITALS: BP 130/46
[2018-05-22 02:24] VITALS: BP 116/57
[2018-05-22 05:45] VITALS: BP 119/44
[2018-05-22 08:40] VITALS: BP 122/42
[2018-05-22 11:42] VITALS: BP 164/75
== END 2018-05-22 14:28 | disposition home or self-care (01) ==
LOC: D.ER 11:53 → D.M2 13:47 → OBSVTIME 13:47 → D.EDHOLD 13:47 → D.M2 13:50
PROVIDERS: Family Medicine
DX: I21.4 Non-ST elevation (NSTEMI) myocardial infarction (principal); I25.110 Atherosclerotic heart disease of native coronary artery with unstable angina pectoris; Z95.5 Presence of coronary angioplasty implant and graft; T82.855A Stenosis of coronary artery stent, initial encounter; Y83.8 Other surgical procedures as the cause of abnormal reaction of the patient, or of later complication, without mention of misadventure at the time of the procedure; I10 Essential (primary) hypertension; E78.5 Hyperlipidemia, unspecified
CPT/HCPCS: 92920; 93458; 92978; 92979; C9600

== ENCOUNTER 2018-10-21 23:27 | Observation (INO) | payer MEDICARE, BC ==
[~2018-10-21] VITALS: Ht 149.9 cm; Wt 84.1 kg
--- NOTE | ~2018-10-21 | HEMODYNAMI ---
PATIENT:CHRISTIAN GARCIAS NOVEMBER MEDICAL RECORD: [id number] : 33 LOCATION:[facility] D.2117 ADMISSION DATE: 10/22/18 Generatedon:10/22/201813:02 Patient name: CHRISTIAN GARCIAS Patient #: [id number] SSN: : 1935 Date of study: 10/22/2018 Page: Of Hemodynamic Procedure Report Patient Data Patient Demographics Procedure consent was obtained First Name: CHRISTIAN Gender: Female Last Name: DIETER : 1935 Middle Initial: NOVEMBER Age: 83 year(s) Patient #: [id number] Race: Additional ID: [id number] Contact details Address: [address] [place] [address] State: [place] City: [facility] Zip code: [address] Past Medical History Allergies Allergen Reaction Date Comments Reported Other allergy 05/22/2018 duloxetine Other allergy 10/22/2018 duloxetine Admission Admission Data Admission Date: 10/22/2018 Admission Time: 0:53 Room #: D.2117 Height (in.): 58.66 BSA: 1.78 (m2) Height (cm.): 149 BMI: 37.84 (kg/m2) Weight (lbs.): 185.19 Weight (kg.): 84 Lab Results Lab Result Date: 10/22/2018 Lab Result Time: 0:00 Biochemistry Name Units Result Min Max BUN mg/dl 22 --(----)-* 7 18 Creatinine mg/dl 1.1 --(--*-)-- 0.6 1.3 CBC Name Units Result Min Max Hemoglobin g/dl 13.3 -*(----)-- 13.5 17.5 Procedure Procedure Types Cath Procedure Diagnostic Procedure [facility] w/Coronaries Procedure Description Procedure Date Procedure Date: 10/22/2018 Procedure Start Time: 12:49 Procedure End Time: 12:59 Procedure Staff Name Function Rick Otto MD Performing Physician Diana Bardales RT Monitor Duy Lea RN Nurse Gama Gutierrez RT Scrub Procedure Data Cath Procedure Fluoroscopy Diagnostic fluoroscopy Total fluoroscopy Time: 1.7 time: 1.7 min min Diagnostic fluoroscopy Total fluoroscopy dose: 636 dose: 636 mGy mGy Contrast Material Contrast Material Type Amount (ml) Isovue 300 73 Entry Location Entry Primary Successful Side Size Upsize Upsize Entry Closure Succes sful Closure Location (Fr) 1 (Fr) 2 (Fr) Remarks Device Remarks Femoral Right 5 Fr Exoseal artery Estimated blood loss: 10 ml Diagnostic catheters Device Type Used For End Catheter Placement MULTIPACK JL 4.0 5Fr Procedure catheter MULTIPACK 3DRC 5Fr Procedure catheter MULTIPACK Pigtail 5 Fr Procedure catheter Procedure Complications No complications Procedure Medications Medication Administration Route Dosage 0.9% NaCl I.V. 100 ml/hr Oxygen etCO2 Nasal cannula 2 l/min Heparin Flush Bag added to field 2 bags (1000units/500ml NS) Lidocaine 2% 20 Versed I.V. 1 mg Fentanyl I.V. 50 mcg Versed I.V. 1 mg Fentanyl I.V. 50 mcg Hemodynamics Rest BSA: 1.78 (m2) HGB: 13.3 (g/dl) O2 Consumption: Estimated: 158.27 (ml/min) O2 Co nsumption indexed: Estimated:88.92 (ml/min/m) Heart Rate: 70 (bpm) Pressure Samples Time Site Value (mmHg) Purpose Heart Use Rate(bpm) 12:55 LV 125/5,8 Snapshot 72 12:56 AO 127/49(82) Pullback 73 12:56 LV 128/9,10 Pullback 73 Gradients Valve Time Site 1 Site 2 Mean SEP/DFP Peak To Heart Use (mmHg) (sec/min) Peak Rate (mmHg) (bpm) Aortic 12:56 LV AO 2 13 1 73 128/9,10 127/49(82) Calculations Valve P-P Mean Valve Index Valve Source Name Gradient Area Flow (cm2) Aortic 1 2 1 2 Snapshots Pre Cath Intra NCS Post Cath Vital Signs Time Heart Resp SPO2 etCO2 NIBP (mmHg) Rhythm Pain Sedation Rate (ipm) (%) (mmHg) Status Level (bpm) 12:36:43 71 18 96 0 176/77(139) NSR 0 (11) 10(A) , No pain 12:41:31 64 15 95 17.2 164/70(134) NSR 0 (11) 10(A) , No pain 12:46:02 61 27 93 23.2 129/60(98) NSR 0 (11) 10(A) , No pain 12:50:30 63 14 97 21 133/61(101) NSR 0 (11) 10(A) , No pain 12:54:56 72 19 89 16.5 133/59(105) NSR 0 (11) 9(A) , No pain 12:59:25 73 28 96 24.7 126/60(98) NSR 0 (11) 9(A) , No pain Medications Time Medication Route Dose Verified Delivered Reason Notes Eff ectiveness by by 12:42:16 0.9% NaCl I.V. 100 Duy Duy Per ml/hr Venu Lea physician RN RN 12:42:25 Oxygen etCO2 2 Duy Duy for low 02 Nasal l/min Lorigan Lorigan sats cannula RN RN 12:42:35 Heparin Flush added 2 Duy Duy used for Bag to bags Lorigan Lorigan procedure (1000units/500ml field RN RN NS) 12:42:44 Lidocaine 2% 20ml Duy Duy for local vial Lorigan Lorigan anesthetic RN RN 12:48:10 Versed I.V. 1 mg Duy Duy for Lorigan Lorigan sedation RN RN 12:48:19 Fentanyl I.V. 50 Duy Duy for mcg Lorigan Lorigan sedation RN RN 12:53:22 Versed I.V. 1 mg Duy Duy for Lorigan Lorigan sedation RN RN 12:53:29 Fentanyl I.V. 50 Duy Duy for mcg Lorigan Lorigan sedation RN onion topper Log Time Note 12:11:08 Gama Gutierrez RT(R) sent for patient. Start room use. 12:11:10 Time tracking: Call back (After hours or weekends) 12:11:14 Plan of Care:Hemodynamics will remain stable., Cardiac rhythm will remain stable., Comfort level will be maintained., Respiratory function will remain adequate., Patient/ family verbilizes understanding of procedure., Procedure tolerated without complication., Recovers from procedure without complications.. 12:35:00 Patient received from PCU to CCL 1 Alert and oriented. Tansferred to table in Supine position. 12:35:02 Warm blankets applied, and dereje hugger turned on for patient comfort. 12:35:02 Correct patient and procedure confirmed by team. 12:35:03 Signed procedure consent form obtained from patient. 12:35:04 ECG and BP/O2 sat monitors applied to patient. 12:35:05 Vital chart was started 12:36:51 Baseline sample Acquired. 12:36:54 Rhythm: sinus rhythm 12:37:08 H&P Date Dictated: 10/21/2018 Within 30 days and on chart.. 12:37:09 Pre-procedure instructions explained to patient. 12:37:13 Family in patients room. 12:37:14 Patient NPO since Midnight. 12:37:35 Patient allergic to Other allergyduloxetine 12:37:39 Is the patient allergic to Iodine/contrast media? No. 12:37:42 Was the patient premedicated? Yes 12:37:46 Is patient on blood thinner?Yes 12:37:49 ACC The patient was administered the following blood thiners within the last 24 hours: ACCPlavix 12:38:02 Patient diabetic? No. 12:38:08 Snore? Yes 12:38:09 Sleep apnea? No 12:38:16 Dentures? Yes tight 12:38:25 Pre procedure: right posterior tibial pulse 2+ Normal; easily identifiable; not easily obliterated 12:38:29 Patient pain scale 0/10 ?. 12:38:41 IV patent on arrival in right wrist with 0.9% NaCl at KVO. 12:39:07 Lab Result : BUN 22 mg/dl 12:39:07 Lab Result : Hemoglobin 13.3 g/dl 12:39:07 Lab Result : Creatinine 1.1 mg/dl 12:39:11 Lab results completed and on chart. 12:39:15 Right groin area was prepped with chlora-prep and draped in sterile fashion 12:39:17 Sharps counted by scrub and verified by R.N. 12:39:17 Physician paged 12:39:18 Physician arrived 12:39:19 --------ALL STOP TIME OUT------ 12:39:19 Final Timeout: patient, procedure, and site verified with staff and physician. All members of the team are in agreement. 12:39:21 Right groin site verified by team. 12:39:26 Maximum allowable Isovue 300 dose 300ml. Physician notified. (300ml for normal creatinines. For patients with creatinine of 1.7 or higher multiply weight(kg) x 5 divided by creatinine.) 12:39:31 Fire Safety Assessment: A--An alcohol-based skin anteseptic being used preoperatively., C--Open oxygen or nitrous oxide is being used., D--An ESU, laser, or fiber-optic light is being used. 12:39:36 Physical assessment completed. ASA score P 2 - A patient with mild systemic disease as per Rick Otto MD. 12:39:40 Sedation plan: IV Moderate Sedation Medication:Versed, Fentanyl 12:39:46 Use device set Femoral Dx 12:39:47 ACIST Syringe (43148) opened to sterile field. 12:39:47 Bag Decanter (2002S) opened to sterile field. 12:39:48 Medline Cath Pack ([id number]) opened to sterile field. 12:39:48 DIAGNOSTIC WIRE .035 260cm J wire (995203) opened to sterile field. 12:39:49 ACIST Hand Control (02772) opened to sterile field. 12:39:50 ACIST Manifold (54586) opened to sterile field. 12:39:50 DIAGNOSTIC Multipack 5Fr catheter set (UT1220) opened to sterile field. 12:39:52 SHEATH 5FR [place]don (SNM741) opened to sterile field. 12:41:33 Patient Height : 58.66 inches 12:41:36 Patient Weight : 185.19 lbs 12:42:16 0.9% NaCl 100 ml/hr I.V. was administered by Duy Lea RN; Per physician; 12:42:25 Oxygen 2 l/min etCO2 Nasal cannula was administered by Duy Lea RN; for low 02 sats; 12:42:35 Heparin Flush Bag (1000units/500ml NS) 2 bags added to field was administered by Duy Lea RN; used for procedure; 12:42:44 Lidocaine 2% 20ml vial was administered by Duy Lea RN; for local anesthetic; 12:48:10 Versed 1 mg I.V. was administered by Duy Lea RN; for sedation; 12:48:18 Procedure started. 12:48:18 Full Disclosure recording started 12:48:19 Fentanyl 50 mcg I.V. was administered by Duy Lea RN; for sedation; 12:49:15 Local anesthetic to right femoral artery with Lidocaine 2% by Rick Otto MD.INITIAL ACCESS ONLY 12:49:25 A 5 Fr sheath was inserted into the Right Femoral artery 12:50:24 A MULTIPACK JL 4.0 5Fr catheter was advanced over the wire and used for Procedure. 12:50:28 LCA angiography performed. 12:53:06 Catheter removed. 12:53:14 A MULTIPACK 3DRC 5Fr catheter was advanced over the wire and used for Procedure. 12:53:22 Versed 1 mg I.V. was administered by Duy Lea RN; for sedation; 12:53:29 Fentanyl 50 mcg I.V. was administered by Duy Lea RN; for sedation; 12:53:41 RCA angiography performed. 12:54:55 Catheter removed. 12:55:03 A MULTIPACK Pigtail 5 Fr catheter was advanced over the wire and used for Procedure. 12:55:09 LV angiography performed. 12:56:23 EF : 55 % 12:56:29 Catheter removed. 12:57:08 EXOSEAL 5Fr (EX500) opened to sterile field. 12:57:36 Sheath removed intact; hemostasis achieved with Exoseal to the Right Femoral artery. 12:57:46 Procedure ended.(Physican Out) 12:58:07 Fluoroscopy time 01.70 minutes. 12:58:19 Fluoroscopy dose: 636 mGy 12:58:19 Flurop Dose total: 636 12:58:28 Contrast amount:Isovue 300 73ml. 12:58:30 Sharps counted by scrub and verified by R.N. 12:58:36 Insertion/operative site no bleeding no hematoma. 12:58:40 Post-op/insertion site Right Femoral artery dressed using a 4 x 4 and Tegaderm. 12:58:44 Post right femoral artery:stable 12:58:48 Post Procedure Pulses reassessed and unchanged 12:58:58 Post-procedure physical assessment completed. ASA score P 2 - A patient with mild systemic disease as per Rick Otto MD. 12:59:02 Post procedure rhythm: unchanged. 12:59:05 Estimated blood loss: 10 ml 12:59:07 Post procedure instruction explained to patient.Patient verbalizes understanding. 12:59:13 Procedure and supply charges have been captured, reviewed, submitted and are correct. 12:59:39 Procedure Complication : No complications 12:59:42 Vital chart was stopped 12:59:44 See physician's report for complete and final results. 12:59:45 Report given to Pre/Post Procedure Room. 12:59:50 Patient transfered to Pre/Post Procedure Room with Stretcher. 12:59:53 Procedure ended. 12:59:53 Full Disclosure recording stopped 12:59:58 End room use (Document Last) Device Usage Item Name Manufacture Quantity Catalog Hospital Part Current Minimal L ot# / Number Charge Number Stock Stock Serial# Code ACIST Acist 1 64475 682636 722264 888716 20 Syringe Medical (59238) Systems Inc Bag Microtek 1 914098 82722 993798 5 Decanter Medical Inc. () Medline Medline 1 [id number] 185663 66540 584600 5 Cath Pack ([id number]) DIAGNOSTIC St Naveed 1 526930 468774 622032 513204 30 WIRE .035 260cm J wire (228706) ACIST Hand Acist 1 70965 907748 736393 617556 5 Control Medical (33091) Systems Inc ACIST Acist 1 42805 614248 341342 965582 5 Manifold Medical (37774) Systems Inc DIAGNOSTIC Cardinal 1 JC4653 063646 73553 013226 30 Multipack Health 5Fr catheter set (RD4656) SHEATH 5FR Terumo 1 DMW142 347822 978576 491827 5 [place] (CAP664) MULTIPACK Cardinal 1 896057 5 JL 4.0 5Fr Health catheter MULTIPACK Cardinal 1 001851 5 3DRC 5Fr Health catheter MULTIPACK Cardinal 1 613201 5 Pigtail 5 Health Fr catheter EXOSEAL 5Fr Cardinal 1 EX500 998468 998343 968449 10 (EX500) Health Signature Audit Ferguson Stage Time Signature Unsigned Intra-Procedure 10/22/2018 Diana Bardales 1:02:01 PM RT(R) Signatures Monitor : Diana Bardales Signature : RT Date : Time : [place] [address] [place] [address]
[~2018-10-21 23:27] MED LIST changes: +NORCO 10-325 TA1 TAB PO; +PRAVASTATIN SOD10 MG PO
[2018-10-21] MEDS ORDERED: HCTZ (23:42)
[2018-10-21] MEDS ORDERED: IRBESAR (23:42)
[2018-10-22 00:09] LABS: BASOPHILS 0.9 % (0-2); EOSINOPHILS 3.8 % (0-7); HEMATOCRIT 39.3 % (36.0-48.0); HEMOGLOBIN 13.3 g/dL (12-16); IMMATURE GRANULOCYTES 0.3 % (0-5); MCH 30.6 pg (26.0-34.0); MCHC 33.8 g/dL (31.0-37.0); MCV 90.3 fL (80.0-100.0); MEAN PLATELET VOLUME 9.8 fL (7.4-10.4); PLATELET COUNT 214 10x3/uL (130-400); RBC 4.35 10x6/uL (4.00-5.40); RDW 12.2 % (11.5-14.5); WBC 7.8 10x3/uL (4.8-10.8)
[2018-10-22 00:20] LABS: ALBUMIN 3.6 g/dL (3.4-5.0); ALKALINE PHOSPHATASE 79 U/L (46-116); ALT (SGPT) 19 U/L (10-68); BILIRUBIN - TOTAL 0.53 mg/dL (0.2-1.3); CALC OSMOLALITY 274 mosm/kg (275-300); CALCIUM 8.8 mg/dL (8.5-10.1); CHLORIDE - SERUM 100 mmol/L (98-107); CREATININE - SERUM 1.2 mg/dL (0.6-1.3); POTASSIUM - SERUM 3.9 mmol/L (3.5-5.1); PROTEIN - SERUM 7.4 g/dL (6.4-8.2); SODIUM 136 mmol/L (136-145); UREA NITROGEN 22 mg/dL (7-18); eGFR NON AFRICAN AMERICAN 45 mL/min (90-120)
[2018-10-22 00:21] LABS: GLUCOSE 101 mg/dL (74-106)
[2018-10-22 00:29] VITALS: BP 168/57
[2018-10-22 00:38] LABS: CKMB 2.8 U/L (0.0-3.6); CREATINE KINASE 138 UL (21-215)
[2018-10-22 00:39] LABS: APTT 30.6 SECONDS (22.8-39.4); INR 1.07 (0.85-1.17); PROTIME 13.4 SECONDS (11.6-15.0); TROPONIN-I 0.129 ng/mL (0.000-0.060)
--- NOTE | 2018-10-22 00:59 | NUR ---
PT ASSISTED TO RESTROOM WITH TECH. NO DISTRESS NOTED. PT REPORTS PAIN HAS IMPROVED.
--- NOTE | 2018-10-22 01:45 | NUR ---
ADMIT TO ROOM 2117 FROM ER. ACCOMPANIED BY SON. ALERT/ORIENTED. NO CHEST PAIN AT THIS TIME. PT STATES SHE IS HERE FOR ELEVATED BP. ADMISSION ASSESSMENT AND HISTORY REVIEWED/UPDATED. HOME MEDS REVIEWED/UPDATED. ASSISTED PT UP TO BATHROOM TO VOID USING A WALKER AND BACK TO BED. NOW RESTING. CALL LIGHT IN REACH.
[2018-10-22 03:52] VITALS: BP 171/72; Ht 149.9 cm; Wt 84.1 kg
[2018-10-22 03:55] VITALS: BP 171/52
[2018-10-22] MEDS ORDERED: CARDIOTEK RX TA1 TA1 PO (04:27)
--- NOTE | 2018-10-22 06:30 | NUR ---
PT C/O HORRIBLE ARTHRITIS PAIN AND IS VERY TEARFUL AND UPSET. SON STATES SHE NORMALLY TAKES A NORCO AT BEDTIME AND DID NOT DUE TO BEING AT THE HOSPITAL. PAGE TO DR MORA AND ORDERS RECIEVED FOR PT TO HAVE HER NORMAL NORCO .
[2018-10-22 06:32] LABS: CKMB 3.1 U/L (0.0-3.6); CREATINE KINASE 149 UL (21-215)
[2018-10-22 08:03] VITALS: BP 133/52
[2018-10-22 09:19] LABS: BASOPHILS 0.4 % (0-2); HEMATOCRIT 39.7 % (36.0-48.0); HEMOGLOBIN 13.3 g/dL (12-16); IMMATURE GRANULOCYTES 0.2 % (0-5); LYMPHOCYTES 25.4 % (15-50); MCH 30.6 pg (26.0-34.0); MCHC 33.5 g/dL (31.0-37.0); MCV 91.5 fL (80.0-100.0); MEAN PLATELET VOLUME 10.4 fL (7.4-10.4); PLATELET COUNT 230 10x3/uL (130-400); RBC 4.34 10x6/uL (4.00-5.40); RDW 12.5 % (11.5-14.5)
[2018-10-22 09:22] LABS: ANION GAP 13.5 mmol/L (8-16); CALCIUM 8.7 mg/dL (8.5-10.1); CARBON DIOXIDE 26.6 mmol/L (21.0-32.0); CREATININE - SERUM 1.1 mg/dL (0.6-1.3); POTASSIUM - SERUM 4.1 mmol/L (3.5-5.1)
[2018-10-22 11:53] LABS: CKMB 3.2 U/L (0.0-3.6); CREATINE KINASE 151 UL (21-215)
[2018-10-22 12:21] LABS: TROPONIN-I 0.204 ng/mL (0.000-0.060)
[2018-10-22 13:25] VITALS: BP 106/51
--- NOTE | 2018-10-22 19:02 | NUR ---
REVIEWED DISCHARGE INSTRUCTIONS WITH PT STATES UNDERSTANDING COPY GIVEN DCD SALINE LOCK TO RAC WITH IV CATHETER INTACT SITE FREE OF REDNESS OR EDEMA PT DISCHARGED HOME LEFT UNIT VIA W/C IN STABLE CONDITION WITH ALL PERSONAL BELONGINGS
--- NOTE | 2018-10-22 19:32 | MORECARE ---
CASE MANAGEMENT DISCHARGE SUMMARY PATIENT: CHRISTIAN GARCIAS MAY UNIT: [id number] ADM DATE: 10/22/18 AGE: 83 : 34 SEX: F ROOM/BED: D.2117 AUTHOR: JAMES STEVENSON PHYSICIAN: REFERRING PHYSICIAN: ANTHONY FARR MD DATE OF SERVICE: 10/22/18 Discharge Plan Patient Name: CHRISTIAN GARCIAS [facility] [facility] 1935 Planned Disposition: Home with Home Health Anticipated Discharge Date: 10/22/18 Discharge Date: 10/22/2018 Expected LOS: 1 Initial Reviewer: [email or web address] Initial Review Date: 10/22/2018 Generated: 10/22/18 8:32 pm Patient Name: CHRISTIAN GARCIAS Page 17476 at 1932 All edits/amendments must be made on the electronic document DICTATION DATE: 10/22/181930 BINDER AND WRAPPER PACKER: FLACA 10/22/181930 RPT#: [id number] DC DATE:10/22/18 STATUS: DIS IN [facility] [address] [place] [address] END OF REPORT
--- NOTE | 2018-10-22 19:39 | MORECARE ---
CASE MANAGEMENT DISCHARGE SUMMARY PATIENT: CHRISTIAN GARCIAS MAY UNIT: [id number] ADM DATE: 10/22/18 AGE: 83 : 34 SEX: F ROOM/BED: D.8802 AUTHOR: JAMES STEVENSON PHYSICIAN: REFERRING PHYSICIAN: ANTHONY FARR MD DATE OF SERVICE: 10/22/18 Discharge Plan Patient Name: CHRISTIAN GARCIAS Facility: [facility]:[place] : 1935 Planned Disposition: Home with Home Health Anticipated Discharge Date: 10/22/18 Discharge Date: 10/22/2018 Expected LOS: 1 Initial Reviewer: [email or web address] Initial Review Date: 10/22/2018 Generated: 10/22/18 8:38 pm DCPIA - Discharge Planning Initial Assessment Updated by [email or web address]: Haven Garcia on 10/22/18 7:32 pm * Is the patient Alert and Oriented? Yes * How many steps to enter\exit or inside your home? FIVE * PCP DR FARR * Pharmacy [facility] ON [facility] * Preadmission Environment Home Alone * ADLs Independent * Equipment None * Other Equipment N/A * List name and contact numbers for known caregivers / representatives who currently or will assist patient after discharge: CECY GARCIAS- SON- [phone] REI PERES DTR- [phone] * Verbal permission to speak to the caregivers and representatives has been obtained from the patient. Yes * Community resources currently utilized Other * Please name any agencies selected above. HAS MEALS DELIVERED VIA MAIL. DTR DOES NOT KNOW THE PROVIDER THE SON MADE ARRANGEMENTS. * Additional services required to return to the preadmission environment? Yes * Can the patient safely return to the preadmission environment? Yes * Has this patient been hospitalized within the prior 30 days at any hospital? No Last DP export: 10/22/18 6:32 p Patient Name: CHRISTIAN GARCIAS Page 20805 at 1939 All edits/amendments must be made on the electronic document DICTATION DATE: 10/22/181937 SORT MANAGER: FLACA 10/22/181937 RPT#: [id number] DC DATE:10/22/18 STATUS: DIS IN [facility] [address] [place] [address] END OF REPORT
--- NOTE | 2018-10-22 19:45 | MORECARE ---
CASE MANAGEMENT DISCHARGE SUMMARY PATIENT: CHRISTIAN GARCIAS MAY UNIT: [id number] ADM DATE: 10/22/18 AGE: 83 : 34 SEX: F ROOM/BED: D.0755 AUTHOR: GRAHAM,DOC PHYSICIAN: REFERRING PHYSICIAN: ANTHONY FARR MD DATE OF SERVICE: 10/22/18 Discharge Plan Patient Name: CHRISTIAN GARCIAS Facility: [facility]:[place] : 1935 Planned Disposition: Home with Home Health Anticipated Discharge Date: 10/22/18 Discharge Date: 10/22/2018 Expected LOS: 1 Initial Reviewer: [email or web address] Initial Review Date: 10/22/2018 Generated: 10/22/18 8:45 pm Comments DCP- Discharge Planning Updated by [email or web address]: Haven Garcia on 10/22/18 6:[address] LATE ENTRY 1715 CM RECEIVED CONSULT FOR HOME HEALTH FOR PHYSICAL THERAPY. PATIENT WAS INITIALLY SLEEPING SHE HAD BEEN MEDICATED FOR PAIN. HER DAUGHTER, REI PERES WAS AT THE BEDSIDE. SHE ALLOWED HER DAUGHTER TO ASSIST W/ DISCHARGE PLANNING. CM ADVISED OF MD ORDER AND EXPLAINED HOME HEALTH SERVICES. PATIENT LIVES ALONE . IS INDEPENDENT IN ACTIVITIES OF DAILY LIVING. HAS NO HOME HEALTH SERVICES. RECEIVES MEALS VIA MAIL FROM PROVIDER THE SON HAD ARRANGED. HOME IS SAFE. JUST HAD NEW SHOWER INSTILLED WHICH IS HANDICAPPED ACCESSIBLE. HAS 5 STEPS TO PORCH TO ENTER HER HOME. DISCUSSED HOME HEALTH PROVIDERS. PRESENTED HER W/ PATIENT CHOICE LIST FOR HOME HEALTH SERVICES. PATIENT SIGNATURE OBTAINED ON PATIENT CHOICE FORM. OBTAINED PATIENT CHOICE FORM. CM WILL CALL [email or web address] [facility] IN THE AM. WILL FAX REFERRAL IN AM. DCPIA - Discharge Planning Initial Assessment Updated by [email or web address]: Haven Garcia on 10/22/18 7:32 pm * Is the patient Alert and Oriented? Yes * How many steps to enter\exit or inside your home? FIVE * PCP DR FARR * Pharmacy [facility] ON [facility] * Preadmission Environment Home Alone * ADLs Independent * Equipment None * Other Equipment N/A * List name and contact numbers for known caregivers / representatives who currently or will assist patient after discharge: CECY GARCIAS- SON- [phone] REI PERES- DTR- [phone] * Verbal permission to speak to the caregivers and representatives has been obtained from the patient. Yes * Community resources currently utilized Other * Please name any agencies selected above. HAS MEALS DELIVERED VIA MAIL. DTR DOES NOT KNOW THE PROVIDER THE SON MADE ARRANGEMENTS. * Additional services required to return to the preadmission environment? Yes * Can the patient safely return to the preadmission environment? Yes * Has this patient been hospitalized within the prior 30 days at any hospital? No Last DP export: 10/22/18 6:38 p Patient Name: CHRISTIAN GARCIAS Page 59237 at 1945 All edits/amendments must be made on the electronic document DICTATION DATE: 10/22/181943 IT OPERATIONS ANALYST: FLACA 10/22/181943 RPT#: [id number] DC DATE:10/22/18 STATUS: DIS IN [facility] [address] [place] [address] END OF REPORT
--- NOTE | 2018-10-23 02:13 | CN ---
PATIENT NAME:CHRISTIAN GARCIAS MEDICAL RECORD: [id number] : [birth year] LOCATION:[facility] D.2117 ADMIT DATE: 10/22/18 ACCOUNT: [id number] CONSULTING PHYSICIAN: MARKO TOWNSEND MD REFERRING PHYSICIAN: ANTHONY FARR MD DATE OF CONSULTATION: 10/22/2018 HISTORY OF PRESENT ILLNESS: An 83-year-old female with known history of coronary artery disease, status post intervention approximately 6 months ago had onset of chest tightness, pressure, elevated hypertension while rolling a box up the driveway yesterday, presented to the ER. She does have elevated cardiac enzymes at this point consistent with acute coronary syndrome/NSTEMI. We are asked to see her concerning her cardiovascular status. PAST MEDICAL HISTORY: Includes: 1. History of hypertension. 2. Hyperlipidemia. 3. Coronary artery disease as described above. MEDICATIONS: Include aspirin 81 every day, pravastatin 10 every day, Zetia 10 every day, Plavix 75 every day. SOCIAL HISTORY: Nonsmoker, nondrinker. Easily takes care of her ADLs. Stays quite active, no set exercise program. ALLERGIES: DULOXETINE. PHYSICAL EXAMINATION: GENERAL: Pleasant female in no acute distress, appears stated age. VITAL SIGNS: Blood pressure 171/52, pulse 73 and regular. HEENT: Normocephalic, atraumatic. NECK: No JVD or bruit. HEART: Regular, II/ systolic ejection murmur. LUNGS: Good air excursion. ABDOMEN: Soft, nontender. EXTREMITIES: Pulses 2+ with no edema. DIAGNOSTIC DATA: ECG shows nonspecific ST-T changes. IMPRESSION: Acute coronary syndrome/non-ST elevation myocardial infarction. PLAN: For angiography, intervention based on the above. TRANSINT:[id number] Voice Confirmation ID: [id number] DOCUMENT ID: [id number] MARKO TOWNSEND MD at 0213 CC: [id number] DICTATION DATE: 10/22/18907 TARIFF COMPILING CLERK: 10/22/18 1145 DIS IN 10/22/18 [facility] [address] [facility] [place] [address]
--- NOTE | 2018-10-23 02:13 | OP ---
PATIENT NAME: CHRISTIAN GARCIAS MEDICAL RECORD: [id number] :33 LOCATION:D.M2 D.2117 ADMISSION DATE:10/22/18 SURGEON: MARKO TOWNSEND MD DATE OF OPERATION: 10/22/2018 PROCEDURE: Left heart catheterization, selective coronary angiography, right femoral artery approach. CATHETERS: A 5-Zimbabwean sheath, 5/4 left and right Sesar, 5/4 pig. The procedure was well tolerated. The patient was returned to the haines. Sheath was removed. ExoSeal device was placed. FINDINGS: Left ventriculography in 30-degree WILHELM view: Normal wall motion and normal systolic function. CORONARY ANATOMY: LEFT MAIN: Left main is free of disease. LAD: LAD proximal previously placed stent shows about 50% stenosis. It does not appear flow restrictive. Stents themselves are widely patent without evidence of restenosis. CIRCUMFLEX: This is a left dominant system. Circumflex is free of disease. RIGHT CORONARY ARTERY: Rudimentary. It has previously placed stent that is widely patent. IMPRESSION: Patent previously placed stents with no evidence of restenosis. TRANSINT:[id number] Voice Confirmation ID: [id number] DOCUMENT ID: [id number] MARKO TOWNSEND MD at 0213 CC: [id number] DICTATION DATE: 10/22/18 1304 DISTRIBUTION LEAD: 10/22/18 1348 DIS IN 10/22/18 [facility] [address] [facility] [place] [address]
--- NOTE | 2018-10-23 08:29 | MORECARE ---
CASE MANAGEMENT DISCHARGE SUMMARY PATIENT: CHRISTIAN GARCIAS MAY UNIT: [id number] ADM DATE: 10/22/18 AGE: 83 : 34 SEX: F ROOM/BED: D.5975 AUTHOR: GRAHAM,DOC PHYSICIAN: REFERRING PHYSICIAN: ANTHONY FARR MD DATE OF SERVICE: 10/23/18 Discharge Plan Patient Name: CHRISTIAN GARCIAS Facility: [facility]:[place] : 1935 Planned Disposition: Home with Home Health Anticipated Discharge Date: 10/22/18 Discharge Date: 10/22/2018 Expected LOS: 1 Initial Reviewer: [email or web address] Initial Review Date: 10/22/2018 Generated: 10/23/18 9:29 am Comments DCP- Discharge Planning Updated by [email or web address]: Haven Garcia on 10/22/18 6:[address] LATE ENTRY 1715 CM RECEIVED CONSULT FOR HOME HEALTH FOR PHYSICAL THERAPY. PATIENT WAS INITIALLY SLEEPING SHE HAD BEEN MEDICATED FOR PAIN. HER DAUGHTER, REI PERES WAS AT THE BEDSIDE. SHE ALLOWED HER DAUGHTER TO ASSIST W/ DISCHARGE PLANNING. CM ADVISED OF MD ORDER AND EXPLAINED HOME HEALTH SERVICES. PATIENT LIVES ALONE . IS INDEPENDENT IN ACTIVITIES OF DAILY LIVING. HAS NO HOME HEALTH SERVICES. RECEIVES MEALS VIA MAIL FROM PROVIDER THE SON HAD ARRANGED. HOME IS SAFE. JUST HAD NEW SHOWER INSTILLED WHICH IS HANDICAPPED ACCESSIBLE. HAS 5 STEPS TO PORCH TO ENTER HER HOME. DISCUSSED HOME HEALTH PROVIDERS. PRESENTED HER W/ PATIENT CHOICE LIST FOR HOME HEALTH SERVICES. PATIENT SIGNATURE OBTAINED ON PATIENT CHOICE FORM. OBTAINED PATIENT CHOICE FORM. CM WILL CALL [email or web address] [facility] IN THE AM. WILL FAX REFERRAL IN AM. DCPIA - Discharge Planning Initial Assessment Updated by [email or web address]: Haven Garcia on 10/22/18 7:32 pm * Is the patient Alert and Oriented? Yes * How many steps to enter\exit or inside your home? FIVE * PCP DR FARR * Pharmacy [facility] * Preadmission Environment Home Alone * ADLs Independent * Equipment None * Other Equipment N/A * List name and contact numbers for known caregivers / representatives who currently or will assist patient after discharge: CECY GARCIAS- SON- [phone] REI PERES- DTR- [phone] * Verbal permission to speak to the caregivers and representatives has been obtained from the patient. Yes * Community resources currently utilized Other * Please name any agencies selected above. HAS MEALS DELIVERED VIA MAIL. DTR DOES NOT KNOW THE PROVIDER THE SON MADE ARRANGEMENTS. * Additional services required to return to the preadmission environment? Yes * Can the patient safely return to the preadmission environment? Yes * Has this patient been hospitalized within the prior 30 days at any hospital? No Last DP export: 10/22/18 6:45 p Patient Name: CHRISTIAN GARCIAS Page 18743 at 0829 All edits/amendments must be made on the electronic document DICTATION DATE: 10/23/18827 PRODUCTION LINE MECHANIC: FLACA 10/23/18827 RPT#: [id number] DC DATE:10/22/18 STATUS: DIS IN [facility] [address] [place] [address] END OF REPORT
--- NOTE | 2018-10-23 08:36 | MORECARE ---
CASE MANAGEMENT DISCHARGE SUMMARY PATIENT: CHRISTIAN GARCIAS MAY UNIT: [id number] ADM DATE: 10/22/18 AGE: 83 : 34 SEX: F ROOM/BED: D.0822 AUTHOR: GRAHAM,DOC PHYSICIAN: REFERRING PHYSICIAN: ANTHONY FARR MD DATE OF SERVICE: 10/23/18 Discharge Plan Patient Name: CHRISTIAN GARCIAS Facility: [facility]:[place] : 1935 Planned Disposition: Home with Home Health Anticipated Discharge Date: 10/22/18 Discharge Date: 10/22/2018 Expected LOS: 1 Initial Reviewer: [email or web address] Initial Review Date: 10/22/2018 Generated: 10/23/18 9:35 am Comments DCP- Discharge Planning Updated by [email or web address]: Hank Bentley on 10/23/18 7:[address] Patient Name: CHRISTIAN GARCIAS Encounter No: [id number] : 1935 Primary Insurance: MEDICARE A & B Anticipated DC Date: 10-22-2018 Planned Disposition: Home with Home Health External Planned Provider: [facility] DCP follow-up note: CM REVIEWED CHART, CALLED [facility], , SPOKE TO OLGA AND PROVIDED HOME HEALTH REFERRAL. JOHANA FAXED REFERRAL TO [facility] AT [phone]. [facility] TO ARRANGE HOME HEALTH ADMISSION / SCHEDULE WITH PT AT HOME. TOD Cavazos DCP- Discharge Planning Updated by [id number]: Haven Garcia on 10/22/18 6:[address] LATE ENTRY 4775 CM RECEIVED CONSULT FOR HOME HEALTH FOR PHYSICAL THERAPY. PATIENT WAS INITIALLY SLEEPING SHE HAD BEEN MEDICATED FOR PAIN. HER DAUGHTER, REI PERES WAS AT THE BEDSIDE. SHE ALLOWED HER DAUGHTER TO ASSIST W/ DISCHARGE PLANNING. CM ADVISED OF MD ORDER AND EXPLAINED HOME HEALTH SERVICES. PATIENT LIVES ALONE . IS INDEPENDENT IN ACTIVITIES OF DAILY LIVING. HAS NO HOME HEALTH SERVICES. RECEIVES MEALS VIA MAIL FROM PROVIDER THE SON HAD ARRANGED. HOME IS SAFE. JUST HAD NEW SHOWER INSTILLED WHICH IS HANDICAPPED ACCESSIBLE. HAS 5 STEPS TO PORCH TO ENTER HER HOME. DISCUSSED HOME HEALTH PROVIDERS. PRESENTED HER W/ PATIENT CHOICE LIST FOR HOME HEALTH SERVICES. PATIENT SIGNATURE OBTAINED ON PATIENT CHOICE FORM. OBTAINED PATIENT CHOICE FORM. CM WILL CALL [email or web address] [facility] IN THE AM. WILL FAX REFERRAL IN AM. DCPIA - Discharge Planning Initial Assessment Updated by [email or web address]: Haven Garcia on 10/22/18 7:32 pm * Is the patient Alert and Oriented? Yes * How many steps to enter\exit or inside your home? FIVE * PCP DR FARR * Pharmacy [facility] ON [facility] [facility] [address] * Preadmission Environment Home Alone * ADLs Independent * Equipment None * Other Equipment N/A * List name and contact numbers for known caregivers / representatives who currently or will assist patient after discharge: CECY GARCIAS- SON- [phone] REI PERES- DTR- [phone] * Verbal permission to speak to the caregivers and representatives has been obtained from the patient. Yes * Community resources currently utilized Other * Please name any agencies selected above. HAS MEALS DELIVERED VIA MAIL. DTR DOES NOT KNOW THE PROVIDER THE SON MADE ARRANGEMENTS. * Additional services required to return to the preadmission environment? Yes * Can the patient safely return to the preadmission environment? Yes * Has this patient been hospitalized within the prior 30 days at any hospital? No External Providers External Provider[facility] [place] Next Contact Date: 10/23/2018 Service Request Date: Service Type: Resolution: Reviewer: Comments: Last DP export: 10/23/18 7:29 a Patient Name: CHRISTIAN GARCIAS Page [phone] at 0836 All edits/amendments must be made on the electronic document DICTATION DATE: 10/23/18834 SYSTEMS SOFTWARE DEVELOPER: FLACA 10/23/18 0835 RPT#: [id number] DC DATE:10/22/18 STATUS: DIS IN [facility] [address] [place] [address] END OF REPORT
== END 2018-10-22 19:02 | disposition home health service (06) ==
LOC: D.ER 23:27 → OBSVTIME 10-22 00:53 → D.M2 10-22 00:53
PROVIDERS: Emergency Medicine; Internal Medicine Interventional Cardiology; ADMIT Family Medicine; ATTEND Family Medicine
DX: I24.8 Other forms of acute ischemic heart disease (principal); I25.10 Atherosclerotic heart disease of native coronary artery without angina pectoris; Z95.5 Presence of coronary angioplasty implant and graft; I10 Essential (primary) hypertension; E78.5 Hyperlipidemia, unspecified

== ENCOUNTER 2018-12-16 18:27 | Emergency (ER) | payer MEDICARE, BC ==
[~2018-12-16] VITALS: Ht 149.9 cm; Wt 88.6 kg
[~2018-12-16 18:27] MED LIST changes: +HCTZ; +IRBESAR
[2018-12-16 18:42] VITALS: Ht 149.9 cm; Wt 88.6 kg
[2018-12-16 19:44] LABS: APPEARANCE CLOUDY (CLEAR); BILIRUBIN NEGATIVE (NEGATIVE); COLOR YELLOW (YELLOW); EPITHELIAL CELLS OCC /hpf (0-5); GLUCOSE NEGATIVE (NEGATIVE); KETONE NEGATIVE (NEGATIVE); NITRITE NEGATIVE (NEGATIVE); PROTEIN 1+ mg/dL (NEGATIVE); UROBILINOGEN NORMAL (NORMAL); WHITE CELLS - URINE 25-50 /hpf (0-5)
[2018-12-16 19:54] LABS: BASOPHILS 0.2 % (0-2); EOSINOPHILS 0 % (0-7); HEMOGLOBIN 12.3 g/dL (12-16); MCH 30.8 pg (26.0-34.0); MCHC 34.2 g/dL (31.0-37.0); MEAN PLATELET VOLUME 9.2 fL (7.4-10.4); MONOCYTES 0.7 % (2-11); NEUTROPHILS 90.1 % (40-80); PLATELET COUNT 238 10x3/uL (130-400); RDW 11.8 % (11.5-14.5); WBC 6.2 10x3/uL (4.8-10.8)
[2018-12-16 20:10] LABS: ALBUMIN 3.3 g/dL (3.4-5.0); ANION GAP 11.7 mmol/L (8-16); BILIRUBIN - TOTAL 0.36 mg/dL (0.2-1.3); CALCIUM 8.9 mg/dL (8.5-10.1); CARBON DIOXIDE 26.2 mmol/L (21.0-32.0); CREATININE - SERUM 1.1 mg/dL (0.6-1.3); POTASSIUM - SERUM 3.9 mmol/L (3.5-5.1); PROTEIN - SERUM 7.4 g/dL (6.4-8.2)
[2018-12-16] MEDS ORDERED: MACROBID100 MG PO (21:24)
[2018-12-16] MEDS ORDERED: VOLTAREN100 GM TOPICAL (21:49)
[2018-12-16 22:07] VITALS: BP 185/77
== END 2018-12-16 22:07 | disposition home or self-care (01) ==
LOC: D.ER 18:27
PROVIDERS: Emergency Medicine
DX: M54.5 Low back pain (principal); N39.0 Urinary tract infection, site not specified

== ENCOUNTER 2018-12-21 13:15 | Outpatient (CLI) | payer MEDICARE, BC ==
[~2018-12-21] VITALS: Ht 149.9 cm; Wt 84.1 kg
[2018-12-21] VITALS (9 sets, daily range): BP systolic 134–191; BP diastolic 45–89
--- NOTE | ~2018-12-21 | HEMODYNAMI ---
PATIENT:CHRISTIAN GARCIAS NOVEMBER MEDICAL RECORD: [id number] : 33 LOCATION:[facility] D.2122 ADMISSION DATE: 12/21/18 Generatedon:12/22/201814:46 Patient name: CHRISTIAN GARCIAS Patient #: [id number] SSN: : 1935 Date of study: 12/22/2018 Page: Of Hemodynamic Procedure Report Patient Data Patient Demographics Procedure consent was obtained First Name: CHRISTIAN Gender: Female Last Name: DIETER : 1935 Middle Initial: NOVEMBER Age: 83 year(s) Patient #: [id number] Race: Additional ID: [id number] Contact details Address: [address] [place] [address] State: [place] City: [facility] Zip code: [address] Past Medical History Allergies Allergen Reaction Date Comments Reported Other allergy 05/22/2018 duloxetine Other allergy 10/22/2018 duloxetine Other allergy 12/22/2018 GABAPENTIN, DULOXETINE Admission Admission Data Admission Date: 12/21/2018 Admission Time: 16:44 Room #: D.2122 Height (in.): 59 BSA: 1.78 (m2) Height (cm.): 149.86 BMI: 37.4 (kg/m2) Weight (lbs.): 185.19 Weight (kg.): 84 Lab Results Lab Result Date: 12/22/2018 Lab Result Time: 0:00 Biochemistry Name Units Result Min Max BUN mg/dl 23 --(----)-* 7 18 Creatinine mg/dl 1 --(--*-)-- 0.6 1.3 CBC Name Units Result Min Max Hematocrit % 36.1 *-(----)-- 42 54 Hemoglobin g/dl 12.9 -*(----)-- 13.5 17.5 Procedure Procedure Types Cath Procedure Diagnostic Procedure [facility] w/Coronaries FFR/IVUS FFR Initial FFR Additional Sedation Charges Moderate Sedation up to 15 minutes PCI Procedure Coronary Stent Coronary Stent Initial Procedure Description Procedure Date Procedure Date: 12/22/2018 Procedure Start Time: 14:22 Procedure End Time: 14:44 Procedure Staff Name Function Curly Baptiste MD Performing Physician Diana Bardales RT Scrub Duy Lea RN Nurse Talha Jones RN Rerolling Machine Operator Misty Mejias RT Monitor Procedure Data Cath Procedure Fluoroscopy Diagnostic fluoroscopy Total fluoroscopy Time: 5.3 time: 5.3 min min Diagnostic fluoroscopy Total fluoroscopy dose: 522 dose: 522 mGy mGy Contrast Material Contrast Material Type Amount (ml) Isovue 370 80 Entry Location Entry Primary Successful Side Size Upsize Upsize Entry Closure Succes sful Closure Location (Fr) 1 (Fr) 2 (Fr) Remarks Device Remarks Femoral Right 5 Fr 6 Fr Exoseal artery Short Estimated blood loss: 5 ml Diagnostic catheters Device Type Used For End Catheter Placement MULTIPACK Pigtail 5 Fr LV Angiography catheter Procedure Complications No complications Procedure Medications Medication Administration Route Dosage 0.9% NaCl I.V. 100 ml/hr Oxygen etCO2 Nasal cannula 2 l/min Heparin Flush Bag added to field 2 bags (1000units/500ml NS) Lidocaine 2% added to field 20 Versed I.V. 2 mg Fentanyl I.V. 100 mcg Versed I.V. 1 mg Heparin Bolus I.V. 4000 units Hemodynamics Rest BSA: 1.78 (m2) HGB: 12.9 (g/dl) O2 Consumption: Estimated: 158.52 (ml/min) O2 Co nsumption indexed: Estimated:89.06 (ml/min/m) Heart Rate: 70 (bpm) Pressure Samples Time Site Value (mmHg) Purpose Heart Use Rate(bpm) 14:25 LV 96/31,57 Snapshot 64 Snapshots Pre Cath Intra NCS Post Cath Vital Signs Time Heart Resp SPO2 etCO2 NIBP (mmHg) Rhythm Pain Sedation Rate (ipm) (%) (mmHg) Status Level (bpm) 13:54:59 77 17 98 0 188/76(146) NSR 0 (11) 10(A) , No pain 13:59:29 73 18 97 0 183/89(129) NSR 0 (11) 10(A) , No pain 14:03:49 63 14 93 0 140/60(106) NSR 0 (11) 10(A) , No pain 14:08:13 63 12 97 0 147/59(101) NSR 0 (11) 10(A) , No pain 14:12:38 63 13 95 15 135/56(96) NSR 0 (11) 10(A) , No pain 14:17:00 63 12 95 27.8 133/55(103) NSR 0 (11) 10(A) , No pain 14:21:22 62 13 95 31.5 131/51(96) NSR 0 (11) 10(A) , No pain 14:25:44 63 15 95 27 140/52(98) NSR 0 (11) 10(A) , No pain 14:30:08 63 14 96 33.8 140/57(108) NSR 0 (11) 9(A) , No pain 14:34:31 63 14 96 32.3 147/59(108) NSR 0 (11) 9(A) , No pain 14:38:57 62 13 98 21 130/49(99) NSR 0 (11) 10(A) , No pain 14:43:17 63 17 98 24.8 136/53(94) NSR 0 (11) 10(A) , No pain Medications Time Medication Route Dose Verified Delivered Reason Notes Effectiveness by by 13:56:18 0.9% NaCl I.V. 100 Duy Duy Per physician ml/hr Venu Lea RN RN 13:56:26 Oxygen etCO2 2 Duy Duy for low 02 sats Nasal l/min Venu Lea cannula RN RN 13:56:38 Heparin Flush added 2 Duy Duy used for Bag to bags Venu Lea procedure (1000units/500ml field LYONS RN NS) 13:56:48 Lidocaine 2% added 20ml Duy Duy for local to vial Venu Lea anesthetic field LYONS RN 14:21:59 Versed I.V. 2 mg Duy Duy for sedation Venu Lea RN RN 14:22:08 Fentanyl I.V. 100 Duy Duy for sedation mcg Venu Lea RN RN 14:23:51 Versed I.V. 1 mg Duy Duy for sedation Venu Lea RN RN 14:34:44 Heparin Bolus I.V. 4000 Duy Duy for units Venu Lea anticoagulation RN expansion envelope maker hand Log Time Note 13:37:40 Signed procedure consent form obtained from patient. 13:37:44 Diagnostic Cath status Urgent 13:37:45 Time tracking: Regular hours (M-F 7:00 - 5:00) 13:37:51 Plan of Care:Hemodynamics will remain stable., Cardiac rhythm will remain stable., Comfort level will be maintained., Respiratory function will remain adequate., Patient/ family verbilizes understanding of procedure., Procedure tolerated without complication., Recovers from procedure without complications.. 13:37:53 Talha Jones RN sent for patient. Start room use. 13:38:25 Patient Weight : 185.19 lbs 13:38:28 Patient Height : 59 inches 13:39:13 Patient allergic to Other allergyGABAPENTIN, DULOXETINE 13:40:21 Lab Result : Creatinine 1 mg/dl 13:40:21 Lab Result : BUN 23 mg/dl 13:40:21 Lab Result : Hemoglobin 12.9 g/dl 13:40:21 Lab Result : Hematocrit 36.1 % 13:45:56 Patient received from Med II to CCL 3 Alert and oriented. Tansferred to table in Supine position. 13:45:57 Warm blankets applied, and dereje hugger turned on for patient comfort. 13:45:58 Correct patient and procedure confirmed by team. 13:45:59 ECG and BP/O2 sat monitors applied to patient. 13:53:38 Vital chart was started 13:53:39 Baseline sample Acquired. 13:53:43 Rhythm: sinus rhythm 13:53:44 Full Disclosure recording started 13:53:51 H&P Date Dictated: 12/20/2018 H&P Addendum completed by physician on day of procedure. (MUST COMPLETE FOR ALL OUTPATIENTS). 13:53:53 Pre-procedure instructions explained to patient. 13:53:57 Family in patients room. 13:53:59 Patient NPO since Midnight. 13:54:02 Is the patient allergic to Iodine/contrast media? No. 13:54:03 Was the patient premedicated? Yes 13:54:05 Is patient on blood thinner?Yes 13:54:08 ACC The patient was administered the following blood thiners within the last 24 hours: ACCPlavix 13:54:12 Patient diabetic? No. 13:54:15 Snore? Yes 13:54:17 Sleep apnea? No 13:54:26 Dentures? Yes UPPERS IN TIGHT 13:54:33 Patient pain scale 0/10 ?. 13:54:42 IV patent on arrival in right forearm with 0.9% NaCl at [facility]. 13:54:46 Lab results completed and on chart. 13:54:54 Right groin area was prepped with chlora-prep and draped in sterile fashion 13:54:59 Alarms reviewed by R. N. 13:55:00 Sharps counted by scrub and verified by R.N. 13:56:18 0.9% NaCl 100 ml/hr I.V. was administered by Duy Lea RN; Per physician; 13:56:26 Oxygen 2 l/min etCO2 Nasal cannula was administered by Duy Lea RN; for low 02 sats; 13:56:37 Use device set Femoral Dx 13:56:38 Heparin Flush Bag (1000units/500ml NS) 2 bags added to field was administered by Duy Lea RN; used for procedure; 13:56:44 ACIST Syringe (73497) opened to sterile field. 13:56:45 Bag Decanter (2002S) opened to sterile field. 13:56:46 ACIST Hand Control (72400) opened to sterile field. 13:56:46 ACIST Manifold (40428) opened to sterile field. 13:56:47 Tegaderm 4 x 4 (1626W) opened to sterile field. 13:56:48 Lidocaine 2% 20ml vial added to field was administered by Duy Lea RN; for local anesthetic; 13:56:50 Medline Cath Pack ([id number]) opened to sterile field. 13:56:50 DIAGNOSTIC WIRE .035 260cm J wire (176464) opened to sterile field. 13:56:52 DIAGNOSTIC Multipack 5Fr catheter set (FX1413) opened to sterile field. 13:56:53 SHEATH 5FR [place] (UUH112) opened to sterile field. 14:00:29 Deviated septum? No 14:00:30 Opens mouth fully? Yes 14:00:31 Sticks out tongue? Yes 14:00:33 Airway obstruction? No ? 14:00:37 Pre procedure: right dorsailis pedis pulse 1+ Palpable, but thready & weak; easily obliterated 14:00:42 Right groin area was prepped with chlora-prep and draped in sterile fashion 14:05:32 Zero performed for pressure channel P1 14:05:39 Zero performed for pressure channel P1 14:06:39 Zero performed for pressure channel P1 14:17:14 Zero performed for pressure channel P1 14:24 --------ALL STOP TIME OUT------ 14::24 Final Timeout: patient, procedure, and site verified with staff and physician. All members of the team are in agreement. 14:: Right groin site verified by team. 14::28 Maximum allowable Isovue 300 dose 300ml. Physician notified. (300ml for normal creatinines. For patients with creatinine of 1.7 or higher multiply weight(kg) x 5 divided by creatinine.) 14::31 Fire Safety Assessment: A--An alcohol-based skin anteseptic being used preoperatively., C--Open oxygen or nitrous oxide is being used., D--An ESU, laser, or fiber-optic light is being used. 14::34 Physical assessment completed. ASA score P 2 - A patient with mild systemic disease as per Curly Baptiste MD. 14:21:36 Sedation plan: IV Moderate Sedation Medication:Versed, Fentanyl 14::59 Versed 2 mg I.V. was administered by Duy Lea RN; for sedation; 14::08 Fentanyl 100 mcg I.V. was administered by Duy Lea RN; for sedation; 14:22:11 Procedure started. 14:22:44 Local anesthetic to right femoral artery with Lidocaine 2% by Curly Baptiste MD.INITIAL ACCESS ONLY 14:23:51 Versed 1 mg I.V. was administered by Duy Lea RN; for sedation; 14:25:03 A 5 Fr sheath was inserted into the Right Femoral artery 14:25:14 A MULTIPACK Pigtail 5 Fr catheter was advanced over the wire and used for LV Angiography. 14::07 LV hemodynamics recorded. 14::08 LV gram done using WILHELM 14::11 Injector settings: Ml/sec: 5, Volume: 15, 14:26:18 EF : 55 % 14:27:04 LCA angiography performed. 14::08 Injector settings: Ml/sec: 3, Volume: 6, 14:28:35 RCA angiography performed. 14::37 Injector settings: Ml/sec: 3, Volume: 6, 14:29:13 Catheter removed. 14:29:28 Proceeding to intervention. 14:29:41 GUIDE 6FR XBLAD 3.5 catheter ([id number]) opened to sterile field. 14:29:42 INFLATOR Merit BasixCompak (WS0114) opened to sterile field. 14:29:43 SHEATH 6FR [place] (IVQ665) opened to sterile field. 14:31:07 [place] Verrata Plus pressure wire (21100I) opened to sterile field. 14:31:20 Sheath upsized to a 6 Fr Short. 14:31:43 6 Fr XBLAD 3.5 guide catheter was inserted over the wire 14:31:49 FFR/IFR wire advanced. 14:33:04 Baseline FFR 1. 14:33:06 Wire advanced across lesion. 14:33:51 LAD lesion measured at 0.83 with IFR 14:34:33 Wire redirected to lcx. 14:34:44 Heparin Bolus 4000 units I.V. was administered by Duy Lea RN; for anticoagulation; 14:36:03 Wire advanced across lesion. 14:36:52 lcx lesion measured at 0.93 with IFR 14:36:55 Wire removed. 14:37:02 CHOICE PT wire advanced. 14:37:21 Wire advanced across lesion. 14:38:31 Place stent Inflation Number: 1 A PAULA RX 3.5 x 08 stent ([id number]) was prepped and advanced across the Prox LAD. The stent was deployed at 19 ENOC for 0:10 (min:sec). 14:39:03 Stent catheter was removed intact over wire. 14:39:04 Wire removed. 14:39:04 Guide catheter removed. 14:39:16 EXOSEAL 6Fr (EX600) opened to sterile field. 14:39:27 Sheath removed intact; hemostasis achieved with Exoseal to the Right Femoral artery. 14:40:27 Procedure ended.(Physican Out) 14:43:05 Fluoroscopy time 05.30 minutes. 14:43:11 Flurop Dose total: 522 14:43:11 Fluoroscopy dose: 522 mGy 14:43:16 Contrast amount:Isovue 370 80ml. 14:43:17 Sharps counted by scrub and verified by R.N. 14:43:28 Insertion/operative site no bleeding no hematoma. 14:43:30 Post Procedure Pulses reassessed and unchanged 14:43:33 Post procedure rhythm: unchanged. 14:43:36 Estimated blood loss: 5 ml 14:43:37 Post procedure instruction explained to patient.Patient verbalizes understanding. 14:43:38 Patient needs reinforcement of post procedure teaching. 14:43:52 Procedure type changed to Cath procedure, Diagnostic procedure, LHC, LHC w/Coronaries, FFR/IVUS, FFR Initial, FFR Additional, Sedation Charges, Moderate Sedation up to 15 minutes, PCI procedure, Coronary Stent, Coronary Stent Initial 14:43:53 Procedure and supply charges have been captured, reviewed, submitted and are correct. 14:44:09 Procedure Complication : No complications 14:44:12 Vital chart was stopped 14:44:12 See physician's report for complete and final results. 14:44:26 Report given to [facility] II. 14:44:29 Patient transfered to Med II with Stretcher. 14:44:31 Procedure ended. 14:44:31 Full Disclosure recording stopped 14:44:42 ACC-PCI Only Patient was given prescriptions, or instructed by Curly Baptiste MD to start/continue the following medications upon discharge: Plavix 14:44:44 End room use (Document Last) Intervention Summary Intervention Notes Time ActionType Lesion and Equipment Used Action# Pressure Duration Attributes 14:38:31 Place stent Prox LAD PAULA RX 3.5 x 1 19 00:10 08 stent ([id number]) Device Usage Item Name Manufacture Quantity Catalog Hospital Part Current Minimal Lot# / Number Charge Number Stock Stock Serial# Code ACIST Syringe Acist 1 58046 926473 010599 849249 20 (25405) Medical Systems Inc Bag Decanter Microtek 1 2001S 258549 43793 162491 5 (2001S) Medical Inc. ACIST Hand Acist 1 20994 133490 603708 040876 5 Control Medical (55503) Systems Inc ACIST Manifold Acist 1 01193 267635 271002 118092 5 (21594) Medical Systems Inc Tegaderm 4 x 4 3M 1 1626W 967653 156139 100422 5 (1626W) Medline Cath Medline 1 [id number] 062352 15226 494278 5 Pack ([id number]) DIAGNOSTIC St Naveed 1 523018 285332 871724 589539 30 WIRE .035 260cm J wire (361789) DIAGNOSTIC Cardinal 1 XJ0543 643246 04723 216189 30 Multipack 5Fr Health catheter set (FY6944) SHEATH 5FR Terumo 1 ZCI766 806338 772389 880034 5 [place] (AXK407) MULTIPACK Cardinal 1 740209 5 Pigtail 5 Fr Health catheter GUIDE 6FR Cardinal 1 [id number] 927438 673066 409078 10 XBLAD 3.5 Health catheter ([id number]) INFLATOR Merit Merit 1 OM0476 300829 586533 293876 15 Halo BeveragesBe[facility] HospitalWyle Medical (IB1899) SHEATH 6FR Terumo 1 SHC234 397045 723357 403101 40 [place] (FHF563) [place] Ro[place] 1 76462A 316335 [id number] 658558 5 Verrata Plus pressure wire (15800X) PAULA RX 3.5 x Medtronic 1 [id number] 443283 2342382 550632 5 [id number] 08 stent ([id number]) EXOSEAL 6Fr Cardinal 1 EX600 126342 627868 144118 10 (EX600) Health Signature Audit [place] Stage Time Signature Unsigned Intra-Procedure 12/22/2018 Misty Mejias 2:45:54 PM RT(R) Signatures Monitor : Misty Mejias RT Signature : Date : Time : [facility] [address] [place] [address]
--- NOTE | ~2018-12-21 | HP ---
PATIENT: CHRISTIAN GARCIAS NOVEMBER MEDICAL RECORD: [id number] ACCOUNT: [id number] LOCATION:. D.2122 : 34 ADMISSION DATE: 12/21/18 PCP: ANTHONY FARR MD HISTORY AND PHYSICAL EXAMINATION DIAGNOSES: 1. Non-Q-wave myocardial infarction. 2. Unstable angina. 3. Coronary artery disease. 4. Previous percutaneous transluminal coronary angioplasty stent. 5. Hypertension. 6. Hyperlipidemia. 7. Ativan. HISTORY OF PRESENT ILLNESS: Ms. Garcias presents with 2 days of increasing episodes of chest pain, worsening dramatically last night and today. She has a history of coronary artery disease. Last cardiac intervention was in May. Her troponin is positive. She has no acute ST-T abnormalities, nonspecific changes inferiorly. Her medical management is on Irbesartan, aspirin, Plavix, Zetia, and Pravachol. She has been given nitrates here. She has continued to have chest discomfort. PHYSICAL EXAMINATION: GENERAL APPEARANCE: Well-nourished, well-developed, appears stated age. Level of distress, comfortable. PSYCHIATRIC: Mental status, alert, normal affect. Orientation, oriented to time, place and person. EYES: Lids and conjunctiva, noninjected. No discharge, no pallor. ENT: Lips, teeth, gums, normal dentition. Oropharynx, no cyanosis, no pallor. NECK: Carotid arteries, bilateral normal upstroke, no bruits, no thrills. JUGULAR VEINS: No jugular venous pressure or distention. CERVICAL LYMPH NODES: Nontender, nonenlarged. THYROID: Not enlarged. Nontender. No nodules. LUNGS: Respiratory effort, unlabored. CHEST: Normal curvature. No thoracic deformity. No chest wall tenderness. Percussion, resonant. Auscultation, clear. No wheezes, no rales, no rhonchi. CARDIOVASCULAR: Precordial exam, nondisplaced. No heaves or pericardial thrills. Rate and rhythm, regular. Heart sounds, normal S1, normal S2. No S3, no gallop, no rub. Systolic murmur, not heard. Diastolic murmur, not heard. EXTREMITIES: No cyanosis, no edema. Peripheral pulses, full and equal in all extremities, except as noted. No bruits appreciated. ABDOMEN: Soft, nondistended. Normal aorta. No bruit. Nontender. No masses. Liver, nontender, no hepatomegaly. Spleen, nontender, no splenomegaly. MUSCULOSKELETAL: No joint tenderness. No joint swelling. No erythema. NEUROLOGICAL: Normal gait, normal strength, normal tone. SKIN: Warm and dry. OVERALL IMPRESSION: Non-Q-wave myocardial infarction. At this time, we will optimize her medical management with the addition of Lopressor, continuing the nitrate, continuing the Irbesartan. She has continued pain despite maximal medical management, would consider coronary angiography. Further care depends upon the medical management and coronary angiography. TRANSINT:[id number] Voice Confirmation ID: [id number] DOCUMENT ID: [id number] HISTORY AND PHYSICAL [id number] CHRISTIAN GARCIAS JEFFREY MD CC: [id number] DICTATION DATE: 12/21/18 1646 LEAD TEACHER: 12/21/18 1733 ADM IN [facility] [address] [place] [address]
--- NOTE | ~2018-12-21 | DS ---
PATIENT:CHRISTIAN GARCIAS NOVEMBER :33 MEDICAL RECORD: [id number] DISCHARGE SUMMARY ADMISSION DATE: 12/21/18 DISCHARGE DATE: 12/22/18 DATE OF DISCHARGE: 12/22/2018 DIAGNOSES: 1. Non-Q-wave myocardial infarction. 2. Coronary artery disease. 3. PTCA and stent of LAD this admission. 4. Hypertension. 5. Hyperlipidemia. HISTORY AND HOSPITAL COURSE: Ms. Garcias presented with a non-Q-wave myocardial infarction, unstable angina, found to have significant disease of the LAD. Underwent successful PTCA and stent of the LAD. Discharged home with the addition of aspirin and Plavix to her medical regimen. Will follow up with [facility] in 1 month. TRANSINT:[id number] Voice Confirmation ID: [id number] DOCUMENT ID: [id number] EDDIE VERMA MD CC: [id number] DICTATION DATE: 12/22/18 1448 GRAILS WEB APPLICATION DEVELOPER: 12/23/18 0344 DIS IN 12/22/18 [place] [id number] [place] [id number]
--- NOTE | ~2018-12-21 | EC ---
PATIENT:CHRISTIAN GARCIAS NOVEMBER DATE OF SERVICE: 12/21/18 SEX: F MEDICAL RECORD: [id number] DATE OF : 34 LOCATION:[facility] AGE OF PATIENT: 83 ADMISSION DATE: 12/21/18 REFERRING PHYSICIAN: INTERPRETING PHYSICIAN: EDDIE BAPTISTE MD ECHOCARDIOGRAM REPORT ECHO CHARGES 4 ECHO COMPLETE Date: 12/22/18 CLINICAL DIAGNOSIS: OH ECHOCARDIOGRAPHIC MEASUREMENTS (adult normal given) AC root (d.<3.7cm) 3.1 cm LV Septum d (<1.2 cm> 1.4 cm Valve Excursion 2.0 cm LV Septum (systole) 1.7 cm Left Atria (s.<4.0cm> 3.9 cm LVPW d(<1.2cm) 1.3 cm RV (d.<2.3cm) 2.7 cm LVPW (sytole) 2.0 cm LV diastole(<5.6CM) 5.1 cm MV E-F(>70mm/sec) cm LV systole 3.1 cm LVOT Diameter 1.9 cm MV exc.(>10mm) cm Est.ejection fraction (50-75%) % DOPPLER: LVIT cm/sec A 89.0 cm/sec E 77.0 cm/sec LA cm/sec RVSP 39.0 mmHg LVOT 91.0 cm/sec AOP1/2T m/s Asc. Ao 144 cm/sec RVOT 46.0 cm/sec RA cm/sec PA 76.0 cm/sec AV Gradient Peak 8.2 mmHg AV Mean 4.0 mmHg AV Area 1.7 cm MV Gradient Peak 4.1 mmHg MV Mean 1.2 mmHg MV Area cm COMMENTS: Cream Cheese Maker: Elle MALCOLMOE Rehabilitation Psychologist: 1 Dr. Baptiste TAPE# PACS Pericardial Effusion N DATE OF SERVICE: 12/22/2018 PROCEDURE: Echocardiogram. FINDINGS: 1. Left ventricular chamber size is within normal limits. Left ventricular systolic function is normal. Overall ejection fraction estimated at 55%. 2. Left atrium, right atrium and right ventricular chamber sizes are within normal limits. 3. Valvular structures have normal structure and motion. ECHOCARDIOGRAM REPORT [id number] CHRISTIAN GARCIAS NOVEMBER 4. Doppler interrogation reveals mild aortic insufficiency, moderate mitral regurgitation, moderate tricuspid regurgitation, no other valvular insufficiency or stenosis. Pulmonary systolic pressure is estimated 39 mmHg. 5. No evidence of pericardial effusion or left ventricular thrombus. TRANSINT:[id number] Voice Confirmation ID: [id number] DOCUMENT ID: [id number] EDDIE BAPTISTE MD CC: [id number] DICTATION DATE: 12/22/18 1323 ACADEMIC ASSISTANT: 12/22/18 1528 ADM IN [facility] [address] [place] [address]
--- NOTE | ~2018-12-21 | OP ---
PATIENT NAME: CHRISTIAN GARCIAS MEDICAL RECORD: [id number] :34 LOCATION:[facility] ADMISSION DATE:12/21/18 SURGEON: EDDIE VERMA MD DATE OF OPERATION: 12/22/2018 PROCEDURES: 1. PTCA and stent to the LAD. 2. IFR to LAD. 3. IFR to left circumflex. 4. Left heart catheterization. 5. Selective coronary angiography. 6. Left ventriculogram. INDICATIONS: Non-Q-wave myocardial infarction and coronary artery disease, unstable angina, hypertension, hyperlipidemia. PROCEDURE IN DETAIL: After informed consent was obtained and after detailed description of risks, benefits as well as alternative therapies, the patient elected to proceed with angiogram and angioplasty. The right femoral area was prepped and draped in normal sterile fashion. Right femoral artery was cannulated via modified Seldinger technique with placement of 6-Kazakh sheath. All catheters exchanged through this sheath. FINDINGS: The left ventriculogram was performed in standard 30-degree WILHELM view, reveals good cardiac wall motion throughout all segments. Overall ejection fraction estimated at 55%. SELECTIVE CORONARY ANGIOGRAPHY: 1. Left main is with no significant angiographic disease. 2. Left anterior descending has greater than 80% stenosis at the ostium with an abnormal IFR. 3. Left circumflex has questionable ostial stenosis; however, IFR is normal. 4. The right coronary has previously placed stent. This is widely patent with no significant restenosis. No disease elsewise throughout the RCA or its branches. CHRONOGRAPH OPERATOR STENT OF THE LAD: The stent used was a 3.5 x 8 mm [place]. Result was 0% residual stenosis. OVERALL IMPRESSION: Successful percutaneous transluminal angioplasty stent of the left anterior descending going from greater than 80% initial stenosis to 0% residual. TRANSINT:[id number] Voice Confirmation ID: [id number] DOCUMENT ID: [id number] EDDIE VERMA MD CC: [id number] DICTATION DATE: 12/22/18 1447 RETAIL SALES ASSOCIATE: 12/22/18 8455 DIS IN 12/22/18 [place] [id number] [place] [id number]
[~2018-12-21 13:15] MED LIST changes: +MACROBID100 MG PO; +VOLTAREN100 GM TOPICAL
[2018-12-21 14:31] LABS: ALBUMIN 3.4 g/dL (3.4-5.0); ALKALINE PHOSPHATASE 70 U/L (46-116); ALT (SGPT) 28 U/L (10-68); BILIRUBIN - TOTAL 0.57 mg/dL (0.2-1.3); CALC OSMOLALITY 268 mosm/kg (275-300); CALCIUM 8.8 mg/dL (8.5-10.1); CARBON DIOXIDE 27.7 mmol/L (21.0-32.0); CHLORIDE - SERUM 97 mmol/L (98-107); GLUCOSE 92 mg/dL (74-106); POTASSIUM - SERUM 3.7 mmol/L (3.5-5.1); PROTEIN - SERUM 6.9 g/dL (6.4-8.2); SODIUM 132 mmol/L (136-145); UREA NITROGEN 23 mg/dL (7-18); eGFR NON AFRICAN AMERICAN 56 mL/min (90-120)
[2018-12-21 14:37] LABS: HEMATOCRIT 36.1 % (36.0-48.0); HEMOGLOBIN 12.9 g/dL (12-16); MCH 31.9 pg (26.0-34.0); MCHC 35.7 g/dL (31.0-37.0); MCV 89.4 fL (80.0-100.0); MEAN PLATELET VOLUME 8.7 fL (7.4-10.4); NEUTROPHILS 65.2 % (40-80); PLATELET COUNT 254 10x3/uL (130-400); RBC 4.04 10x6/uL (4.00-5.40); RDW 11.8 % (11.5-14.5); WBC 9.2 10x3/uL (4.8-10.8)
[2018-12-21 14:47] LABS: APTT 29.2 SECONDS (22.8-39.4); CKMB 7.2 U/L (0.0-3.6); CREATINE KINASE 221 UL (21-215); INR 1.05 (0.85-1.17); MAGNESIUM - SERUM 2.1 mg/dL (1.8-2.4); PROTIME 13.2 SECONDS (11.6-15.0)
[2018-12-21 14:55] LABS: TROPONIN-I 0.111 ng/mL (0.000-0.060)
[2018-12-21 15:33] LABS: APPEARANCE CLEAR (CLEAR); BILIRUBIN NEGATIVE (NEGATIVE); COLOR YELLOW (YELLOW); GLUCOSE NEGATIVE (NEGATIVE); KETONE NEGATIVE (NEGATIVE); NITRITE NEGATIVE (NEGATIVE); PROTEIN NEGATIVE (NEGATIVE); UROBILINOGEN NORMAL (NORMAL)
--- NOTE | 2018-12-21 19:25 | NUR ---
REPORT RECIEVED AND ROUNDING COMPLETE. PT LAYING IN BED WITH DAUGHTER AT BEDSIDE. PT HAS A RIGHT AC THAT IS SALINE LOCKED, PT IS ON ROOM AIR, ASSISTED PT TO THE BATHROOM AND THEN BACK TO BED. PT IS WORRIED ABOUT NOT HAVING A BOWEL MOVEMENT IN 3 DAYS. PT WAS ABLE TO HAVE A BOWEL MOVEMENT THIS TRIP TO THE BATHROOM, MED SIZE BROWN AND HARD. NO OTHER NEEDS AT THIS TIME CALL LIGHT WITHIN REACH AND BED IN LOWEST POSITION.
[2018-12-22] VITALS: BP 136/39
--- NOTE | 2018-12-22 01:01 | NUR ---
I have reviewed this patient and I concur with the Shift Assessment completed by the Licensed Practical Nurse today this shift.
[2018-12-22 01:10] VITALS: BP 144/76; Ht 149.9 cm; Wt 84.1 kg
[2018-12-22 04:30] VITALS: BP 162/72
--- NOTE | 2018-12-22 07:45 | NUR ---
ASSESSMENT COMPLETED. ALERT AND ORIENTED. TELEMERTY SHOWS SB. RIGHT AC SL. UP WITH ASSIST. AWAITING CATH. NPO FOR NOW
[2018-12-22 08:30] VITALS: BP 150/54
[2018-12-22 12:30] VITALS: BP 134/44
--- NOTE | 2018-12-22 14:58 | NUR ---
PT ARRIVED BY STRETCHER. PLACED ON MONITORS. ASSESSMENT COMPLETED.
--- NOTE | 2018-12-22 14:59 | NUR ---
PT WILLBE DISCHARGED FROM CATH RECOVERY.
--- NOTE | 2018-12-22 15:19 | NUR ---
DR. VERMA AT BEDSIDE. UPDATED FAMILY. PT RESTING COMFORTABLY. RIGHT GROIN DRESSING C/D/I. NO S/S OF HEMATOMA NOTED. VSS. CALL LIGHT WITHIN REACH. FAMILY AT BEDSIDE.
--- NOTE | 2018-12-22 15:50 | NUR ---
PT ON BEDPAN. VOIDED WITHOUT DIFFICULTY. SUMIT-CARE GIVEN. BACK IN SUPINE POSITION. RIGHT GROIN DRESSING C/D/I. NO S/S OF HEMATOMA NOTED.
--- NOTE | 2018-12-22 16:20 | NUR ---
RIGHT GROIN DRESSING C/D/I. NO S/S OF HEMATOMA NOTED. VSS. FAMILY AT BEDSIDE. PT GIVEN WARM BLANKETS FOR COMFORT. NO OTHER NEEDS AT THIS TIME.
--- NOTE | 2018-12-22 17:19 | NUR ---
PT ON BEDPAN. HAD SMALL BM. SOFT BROWN STOOL NOTED. SUMIT-CARE GIVEN. PT BACK IN SUPINE POSITION. FAMILY AT BEDSIDE.
--- NOTE | 2018-12-22 17:30 | NUR ---
PT ON BEDPAN. HAD SMALL BM. SOFT BROWN STOOL NOTED. APPROX 100cc OF URINE NOTED. SUMIT-CARE GIVEN. RIGHT GROIN DRESSING C/D/I. NO S/S OF HEMATOMA NOTED. HEAD OF BED INC TO 30 DEGREES. PT SET UP WITH DRINK AND SANDWICH TRAY.
--- NOTE | 2018-12-22 17:56 | NUR ---
LEFT FA PIV D/C'D WITH CATH TIP INTACT. PT TOLERATED WELL. RIGHT GROIN DRESSING C/D/I. NO S/S OF HEMATOMA NOTED. PT'S FAMILY AT BEDSIDE TO ASSIST PT GETTING DRESSED.
--- NOTE | 2018-12-22 18:14 | NUR ---
PT UP AND DRESSED. DISCUSSED DISCHARGE INSTRUCTIONS WITH PT AND PT'S FAMILY. THEY VOICED UNDERSTANDING. RIGHT GROIN DRESSING C/D/I. NO S/S OF HEMATOMA NOTED.
--- NOTE | 2018-12-22 18:30 | NUR ---
PT TAKEN OUT TO VEHICLE BY WHEELCHAIR. NO S/S OF DISTRESS NOTED. ALL BELONGINGS AND PAPERWORK IN HAND.
== END 2018-12-22 18:30 | disposition home or self-care (01) ==
LOC: OBSVTIME → D.ER 13:15 → D.OPS 13:15 → D.M2 16:44 → D.ER 16:44 → OBSVTIME 16:44 → EDSTATUS 16:48 → D.ER 17:40 → D.M2 12-22 14:49 → D.CLR 12-22 14:49 → D.OPS 12-22 18:30 → D.CLR 12-22 18:30
PROVIDERS: ATTEND Family Medicine
DX: I21.4 Non-ST elevation (NSTEMI) myocardial infarction (principal); I25.110 Atherosclerotic heart disease of native coronary artery with unstable angina pectoris; I10 Essential (primary) hypertension; E78.5 Hyperlipidemia, unspecified
CPT/HCPCS: 93458; C9600

== ENCOUNTER 2019-03-30 14:33 | Observation (INO) | payer MEDICARE, BC ==
[~2019-03-30] VITALS: Ht 149.9 cm; Wt 81.8 kg
[~2019-03-30 14:33] MED LIST changes: +HYDROCODON-ACE1 EA10 PO; -NORCO 10-325 TA1 TAB PO
--- NOTE | 2019-03-30 15:00 | NUR ---
URINE SPECIMEN OBTAINED, LABELED AT BS AND SENT OT LAB
[2019-03-30 15:09] LABS: BASOPHILS 0.5 % (0-2); EOSINOPHILS 1.4 % (0-7); HEMATOCRIT 36.9 % (36.0-48.0); HEMOGLOBIN 12.8 g/dL (12-16); IMMATURE GRANULOCYTES 0.1 % (0-5); LYMPHOCYTES 12.3 % (15-50); MCH 31.6 pg (26.0-34.0); MCHC 34.7 g/dL (31.0-37.0); MCV 91.1 fL (80.0-100.0); MEAN PLATELET VOLUME 9.4 fL (7.4-10.4); MONOCYTES 6.8 % (2-11); NEUTROPHILS 78.9 % (40-80); PLATELET COUNT 212 10x3/uL (130-400); RBC 4.05 10x6/uL (4.00-5.40); RDW 12.1 % (11.5-14.5); WBC 9.8 10x3/uL (4.8-10.8)
[2019-03-30 15:11] VITALS: BP 164/74
[2019-03-30 15:25] LABS: ALBUMIN 3.4 g/dL (3.4-5.0); ANION GAP 13.7 mmol/L (8-16); BILIRUBIN - TOTAL 0.45 mg/dL (0.2-1.3); CALCIUM 8.9 mg/dL (8.5-10.1); CARBON DIOXIDE 27.8 mmol/L (21.0-32.0); CREATININE - SERUM 1.1 mg/dL (0.6-1.3); POTASSIUM - SERUM 4.5 mmol/L (3.5-5.1); PROTEIN - SERUM 6.5 g/dL (6.4-8.2)
[2019-03-30 15:43] LABS: TROPONIN-I 0.083 ng/mL (0.000-0.060)
--- NOTE | 2019-03-30 15:43 | NUR ---
RCVD TC FROM LAB: CRITICAL TROPONIN 0.083. DR BETHEA NOTIFIED
[2019-03-30 15:46] LABS: APPEARANCE HAZY (CLEAR); COLOR YELLOW (YELLOW)
[2019-03-30 15:47] LABS: BILIRUBIN NEGATIVE (NEGATIVE); GLUCOSE NEGATIVE (NEGATIVE); KETONE NEGATIVE (NEGATIVE); NITRITE NEGATIVE (NEGATIVE); PROTEIN TRACE mg/dL (NEGATIVE); UROBILINOGEN NORMAL (NORMAL)
[2019-03-30 15:58] LABS: BACTERIA MANY /hpf (NONE SEEN); EPITHELIAL CELLS OCC /hpf (0-5); RED CELLS - URINE 0-5 /hpf (0-5); WHITE CELLS - URINE 0-5 /hpf (0-5)
--- NOTE | 2019-03-30 16:10 | NUR ---
UP TO BSC ATTEMPTING TO HAVE BM. LARGE AMT STOOL NOTED AT ANUS OPENING. SOME SUCCESS BUT PT STATES " IT HURTS TOO BAD I CAN'T DO IT ANY MORE." ASSISTED BACK TO BED NOTIFIED
[2019-03-30 16:50] VITALS: BP 175/56
--- NOTE | 2019-03-30 16:53 | NUR ---
PT STATES, " I FEEL SO MUCH BETTER"
--- NOTE | 2019-03-30 18:12 | NUR ---
RESTING IN BED WITH EYES CLOSED. AROUSES EASILY WHEN NAME CALLED. "I'VE BEEN SLEEPING GOOD" FAMILY AT
[2019-03-30 18:29] VITALS: BP 168/72
[2019-03-30 18:31] LABS: CKMB 2.3 U/L (0.0-3.6); CREATINE KINASE 96 UL (21-215)
[2019-03-30 18:33] LABS: TROPONIN-I 0.125 ng/mL (0.000-0.060)
--- NOTE | 2019-03-30 18:33 | NUR ---
RCVD TC FROM LAB: CRITICAL TROPONIN 0.125 DR BETHEA NOTIFIED
--- NOTE | 2019-03-30 19:08 | NUR ---
BS REPORT TO SERENA PARSON BY SBAR FORMAT
--- NOTE | 2019-03-30 21:15 | NUR ---
RECEIVED VIA STRECHER FROM ER,IV-LFA*NS @100, PLACED ON [id number], COMPLAINS OF BACK PAIN, GAVE NORCO ORDERED,BED IS LOW, SRX2, CALL LIGHT IN REACH, WILL CONTINUE PLAN OF CARE
[2019-03-30] MEDS ORDERED: AVAPRO300 MG PO (23:06)
[2019-03-31] MEDS ORDERED: ZANAFLEX4 MG PO (00:48)
[2019-03-31 00:50] VITALS: BP 138/65; BMI 36.4
[2019-03-31 04:00] VITALS: BP 137/46
[2019-03-31 06:46] LABS: BASOPHILS 0.6 % (0-2); EOSINOPHILS 3.8 % (0-7); HEMATOCRIT 34.1 % (36.0-48.0); HEMOGLOBIN 11.4 g/dL (12-16); IMMATURE GRANULOCYTES 0.2 % (0-5); LYMPHOCYTES 28.4 % (15-50); MCH 30.4 pg (26.0-34.0); MCHC 33.4 g/dL (31.0-37.0); MCV 90.9 fL (80.0-100.0); MEAN PLATELET VOLUME 9.6 fL (7.4-10.4); PLATELET COUNT 205 10x3/uL (130-400); RBC 3.75 10x6/uL (4.00-5.40)
--- NOTE | 2019-03-31 07:04 | NUR ---
REPORT RECEIVED. WILL CONTINUE WITH POC. PT CURRENTLY LYING SUPINE. CALL LIGHT W/I REACH. FAMILY AT BEDSIDE. RR EVEN AND UNLABORED ON RA. NS INFUSING @100ML/HR VIA L.FOR PIV. PT IS NPO UNTIL SEEN BY CARDIOLOGY. PT DENIES ANY NEEDS AT THIS TIME. NO S/S OF DISTRESS NOTED. WILL CTM.
[2019-03-31 07:05] LABS: WBC 5.2 10x3/uL (4.8-10.8)
[2019-03-31 07:18] LABS: ALBUMIN 2.7 g/dL (3.4-5.0); BILIRUBIN - TOTAL 0.43 mg/dL (0.2-1.3); CALCIUM 8.3 mg/dL (8.5-10.1); CARBON DIOXIDE 27.8 mmol/L (21.0-32.0); PROTEIN - SERUM 5.7 g/dL (6.4-8.2)
--- NOTE | 2019-03-31 07:23 | NUR ---
I have reviewed this patient and I concur with the Shift Assessment completed by the Licensed Practical Nurse today this shift.
[2019-03-31 07:52] LABS: POTASSIUM - SERUM 3.8 mmol/L (3.5-5.1); TROPONIN-I 0.124 ng/mL (0.000-0.060)
[2019-03-31 08:10] VITALS: BP 154/47
[2019-03-31 12:15] VITALS: Ht 149.9 cm; Wt 81.8 kg
--- NOTE | 2019-03-31 14:49 | NUR ---
PT DISCHARGED HOME VIA WHEELCHAIR WITH FAMILY. PIV REMOVED WITH CATHETER TIP FULLY INTACT. TELEMETRY REMOVED AND RETURNED. PT SIGNED PROPER DISCHARGE INSTRUCTION AND REMOVED ALL VALUABLES FROM THE ROOM.
== END 2019-03-31 14:49 | disposition home or self-care (01) ==
LOC: D.ER 14:33 → D.M2 19:28 → OBSVTIME 19:28 → D.M2 03-31 14:49
PROVIDERS: Family Medicine; ADMIT Family Medicine; ATTEND Family Medicine
DX: K59.03 Drug induced constipation (principal); I10 Essential (primary) hypertension; I25.10 Atherosclerotic heart disease of native coronary artery without angina pectoris; T40.2X5A Adverse effect of other opioids, initial encounter; R79.89 Other specified abnormal findings of blood chemistry; E78.5 Hyperlipidemia, unspecified

== ENCOUNTER 2019-04-30 12:21 | Inpatient (IN) | payer MEDICARE, BC ==
[~2019-04-30] VITALS: Ht 149.9 cm; Wt 77.7 kg
--- NOTE | ~2019-04-30 | HEMODYNAMI ---
PATIENT:CHRISTIAN GARCIAS NOVEMBER MEDICAL RECORD: [id number] : 33 LOCATION:[facility] D.2118 ADMISSION DATE: 04/30/19 Generatedon:05/01/201915:11 Patient name: CHRISTIAN GARCIAS Patient #: [id number] SSN: [id number] : 1935 Date of study: 05/01/2019 Page: Of Hemodynamic Procedure Report Patient Data Patient Demographics Procedure consent was obtained First Name: CHRISTIAN Gender: Female Last Name: DIETER : 1935 Middle Initial: NOVEMBER Age: 83 year(s) Patient #: [id number] Race: SSN: [id number] Additional ID: [id number] Contact details Address: [address] [place] [address] State: [place] City: [facility] Zip code: [address] Past Medical History Allergies Allergen Reaction Date Comments Reported Other allergy 05/22/2018 duloxetine Other allergy 10/22/2018 duloxetine Other allergy 12/22/2018 GABAPENTIN, DULOXETINE Other allergy 05/01/2019 GABAPENTIN, DULOXETINE Admission Admission Data Admission Date: 04/30/2019 Admission Time: 13:41 Arrival Date: 05/01/2019 Arrival Time: 0:00 Room #: [address] #: [id number] Height (in.): 59 BSA: 1.73 (m2) Height (cm.): 149.86 BMI: 34.73 (kg/m2) Weight (lbs.): 171.96 Weight (kg.): 78 Lab Results Lab Result Date: 05/01/2019 Lab Result Time: 0:00 Biochemistry Name Units Result Min Max BUN mg/dl 16 --(---*)-- 7 18 Creatinine mg/dl 1 --(--*-)-- 0.6 1.3 eGFR ml/min 56 *-(----)-- 90 120 NONAFRICAN CBC Name Units Result Min Max Hematocrit % 35.3 *-(----)-- 42 54 Hemoglobin g/dl 11.9 *-(----)-- 13.5 17.5 Procedure Procedure Types Cath Procedure Diagnostic Procedure [facility] w/Coron[facility] Procedure Description Procedure Date Procedure Date: 05/01/2019 Procedure Start Time: 14:56 Procedure End Time: 15:08 Procedure Staff Name Function Rick Otto MD Performing Physician Diana Bardales RT Monitor Tracy Bell RN Nurse Estefanía Servin RT Scrub Indication CAD Procedure Data Cath Procedure Fluoroscopy Diagnostic fluoroscopy Total fluoroscopy Time: 1.9 time: 1.9 min min Diagnostic fluoroscopy Total fluoroscopy dose: 429 dose: 429 mGy mGy Contrast Material Contrast Material Type Amount (ml) Isovue 300 57 Entry Location Entry Primary Successful Side Size Upsize Upsize Entry Closure Succes sful Closure Location (Fr) 1 (Fr) 2 (Fr) Remarks Device Remarks Femoral Right 5 Fr Exoseal artery Estimated blood loss: 10 ml Diagnostic catheters Device Type Used For End Catheter Placement MULTIPACK JL 4.0 5Fr Procedure catheter MULTIPACK 3DRC 5Fr Procedure catheter MULTIPACK Pigtail 5 Fr Ventriculography catheter Procedure Complications No complications Procedure Medications Medication Administration Route Dosage 0.9% NaCl I.V. 100 ml/hr Oxygen etCO2 Nasal cannula 2 l/min Lidocaine 2% added to field 20 Heparin Flush Bag added to field 2 bags (1000units/500ml NS) Versed I.V. 2 mg Fentanyl I.V. 25 mcg Hemodynamics Rest BSA: 1.73 (m2) HGB: 11.9 (g/dl) O2 Consumption: Estimated: 147.02 (ml/min) O2 Co nsumption indexed: Estimated:84.98 (ml/min/m) Heart Rate: 59 (bpm) Pressure Samples Time Site Value (mmHg) Purpose Heart Use Rate(bpm) 15:02 LV 136/5,10 Snapshot 86 15:02 LV 135/5,7 Snapshot 88 15:03 LV 142/16,17 Pullback 89 15:03 AO 134/62(90) Pullback 89 Gradients Valve Time Site 1 Site 2 Mean SEP/DFP Peak To Heart Use (mmHg) (sec/min) Peak Rate (mmHg) (bpm) Aortic 15:03 LV AO 4 21 8 89 142/16,17 134/62(90) Calculations Valve P-P Mean Valve Index Valve Source Name Gradient Area Flow (cm2) Aortic 8 4 8 4 Snapshots Pre Cath Intra NCS Post Cath Vital Signs Time Heart Resp SPO2 etCO2 NIBP (mmHg) Rhythm Pain Sedation Rate (ipm) (%) (mmHg) Status Level (bpm) 14:36:23 61 25 98 37 175/65(112) NSR 0 (11) 10(A) , No pain 14:41:16 60 17 98 33.7 176/77(126) NSR 0 (11) 10(A) , No pain 14:46:01 65 16 99 18.7 148/60(114) NSR 0 (11) 10(A) , No pain 14:50:35 78 12 98 19.7 129/57(98) NSR 0 (11) 9(A) , No pain 14:55:10 81 12 97 16.4 135/56(100) NSR 0 (11) 9(A) , No pain 14:59:46 85 12 97 38.1 138/61(93) NSR 0 (11) 9(A) , No pain 15:04:23 89 12 97 38.9 140/63(99) NSR 0 (11) 10(A) , No pain Medications Time Medication Route Dose Verified Delivered Reason Notes Eff ectiveness by by 14:34:48 0.9% NaCl I.V. 100 Rick Jacksona used for ml/hr [facility] procedure MD LYONS 14:34:59 Oxygen etCO2 2 Rick Jacksona used for Nasal l/min Clarita[facility]berth Bell procedure cannula MD LYONS 14:35:03 Lidocaine 2% added 20ml Rick Cabrera for local to vial [facility] anesthetic field MD RAMIREZ 14:35:07 Heparin Flush added 2 Rick Cabrera used for Bag to bags [facility] John procedure (1000units/500ml field MD RAMIREZ NS) 14:47:37 Versed I.V. 2 mg [address] [facility] sedation MD LYONS 14:47:47 Fentanyl I.V. 25 Rick Molina for mcg [facility] sedation MD LYONSclerical aide teacher Log Time Note 14:04:16 Informed consent obtained and on chart 14:08:08 Procedure Status Urgent Heart Cath (IP). 14:08:09 Time tracking: Regular hours (M-F 7:00 - 5:00) 14:08:13 Plan of Care:Hemodynamics will remain stable., Cardiac rhythm will remain stable., Comfort level will be maintained., Respiratory function will remain adequate., Patient/ family verbilizes understanding of procedure., Procedure tolerated without complication., Recovers from procedure without complications.. 14:09:03 Patient allergic to Other allergyGABAPENTIN, DULOXETINE 14::36 Lab Result : Hemoglobin 11.9 g/dl 14::36 Lab Result : Hematocrit 35.3 % 14::36 Lab Result : eGFR NONAFRICAN 56 ml/min 14::36 Lab Result : BUN 16 mg/dl 14::36 Lab Result : Creatinine 1 mg/dl 14:11:44 Patient Weight : 171.96 lbs 14:11:48 Patient Height : 59 inches 14:11:54 Arrival Date: 05/01/2019 12:00:00 AM 14:12:28 Indication : CAD 14:13:17 Tracy Bell RN sent for patient. Start room use. 14:34:39 Vital chart was started 14:34:48 0.9% NaCl 100 ml/hr I.V. was administered by Tracy Bell RN; used for procedure; Verbal order read back and verified. 14:34:59 Oxygen 2 l/min etCO2 Nasal cannula was administered by Tracy Bell RN; used for procedure; Verbal order read back and verified. 14:35:03 Lidocaine 2% 20ml vial added to field was administered by Rick Otto MD; for local anesthetic; Verbal order read back and verified. 14:35:07 Heparin Flush Bag (1000units/500ml NS) 2 bags added to field was administered by Rick Otto MD; used for procedure; Verbal order read back and verified. 14:39:38 Patient received from Med II to CCL 1 Alert and oriented. Tansferred to table in Supine position. 14:39:39 Correct patient and procedure confirmed by team. 14:39:39 Warm blankets applied, and dereje hugger turned on for patient comfort. 14:39:40 ECG and BP/O2 sat monitors applied to patient. 14:39:41 Baseline sample Acquired. 14:39:47 Rhythm: sinus bradycardia 14:39:48 Full Disclosure recording started 14:39:49 Pre-op teaching completed and patient verbalized understanding. 14:39:49 Pre-procedure instructions explained to patient. 14:39:54 Family in patients room. 14:40:00 Patient NPO since Midnight. 14:40:02 Is the patient allergic to Iodine/contrast media? No. 14:40:04 Is patient on blood thinner?Yes 14:40:07 ACC The patient was administered the following blood thiners within the last 24 hours: ACCPlavix 14:40:08 Patient diabetic? No. 14:40:11 Patient not . Patient is over age 55. 14:40:12 Previous problem with sedation/anesthesia? No ? 14:40:14 Snore? Yes 14:40:15 Sleep apnea? No 14:40:16 Opens mouth fully? Yes 14:40:16 Deviated septum? No 14:40:18 Sticks out tongue? Yes 14:40:20 Airway obstruction? No ? 14:40:22 Dentures? No ? 14:40:25 Pre procedure: right dorsailis pedis pulse 2+ Normal; easily identifiable; not easily obliterated 14:40:30 Patient pain scale 0/10 ?. 14:40:34 IV patent on arrival in left forearm with 0.9% NaCl at [facility]. 14:40:36 Lab results completed and on chart. 14:40:40 Right groin area was prepped with chlora-prep and draped in sterile fashion 14:40:41 Alarms reviewed by R. N. 14:40:42 Sharps counted by scrub and verified by R.N. 14:40:45 Use device set Femoral Dx 14:40:46 Bag Decanter (2002S) opened to sterile field. 14:40:46 ACIST Syringe (87343) opened to sterile field. 14:40:47 ACIST Manifold (88129) opened to sterile field. 14:40:47 ACIST Hand Control (83997) opened to sterile field. 14:40:48 Tegaderm 4 x 4 (1626W) opened to sterile field. 14:40:49 Medline Cath Pack ([id number]) opened to sterile field. 14:40:50 DIAGNOSTIC Multipack 5Fr catheter set (AH3759) opened to sterile field. 14:40:51 SHEATH 5FR Hunter (ANV715) opened to sterile field. 14:40:52 EMERALD Guide Wire (414-808) opened to sterile field. 14:45:04 --------ALL STOP TIME OUT------ 14:45:05 Final Timeout: patient, procedure, and site verified with staff and physician. All members of the team are in agreement. 14:45:08 Right groin site verified by team. 14:45:11 Fire Safety Assessment: A--An alcohol-based skin anteseptic being used preoperatively., C--Open oxygen or nitrous oxide is being used., D--An ESU, laser, or fiber-optic light is being used. 14:45:15 Physical assessment completed. ASA score P 2 - A patient with mild systemic disease as per Rick Otto MD. 14:45:20 3a) 45-59 Moderately reduced kidney function. 14:45:22 Maximum allowable contrast dose (3.7 X eGFR X 0.75)155 ml. 14:45:26 Sedation plan: IV Moderate Sedation Medication:Versed, Fentanyl 14:47:37 Versed 2 mg I.V. was administered by Tracy Bell RN; for sedation; Verbal order read back and verified. 14:47:47 Fentanyl 25 mcg I.V. was administered by Tracy Bell RN; for sedation; Verbal order read back and verified. 14:52:26 Zero performed for pressure channel P1 14:55:59 Procedure started. 14:56:19 Local anesthetic to right femoral artery with Lidocaine 2% by Rick Otto MD.INITIAL ACCESS ONLY 14:57:23 A 5 Fr sheath was inserted into the Right Femoral artery 14:57:47 A MULTIPACK JL 4.0 5Fr catheter was advanced over the wire and used for Procedure. 14:59:55 LCA angiography performed. 15:01:11 Catheter removed. 15:01:20 A MULTIPACK 3DRC 5Fr catheter was advanced over the wire and used for Procedure. 15:01:45 RCA angiography performed. 15:02:12 Catheter removed. 15:02:30 A MULTIPACK Pigtail 5 Fr catheter was advanced over the wire and used for Ventriculography. 15:03:04 EF : 55 % 15:03:24 Injector settings: Ml/sec: 5, Volume: 15, 15:03:35 Catheter removed. 15:04:35 EXOSEAL 5Fr (EX500) opened to sterile field. 15:05:36 ACCDominant side:Left 15:06:00 Sheath removed intact; hemostasis achieved with Exoseal to the Right Femoral artery. 15:06:03 Procedure ended.(Physican Out) 15:06:15 Fluoroscopy time 01.90 minutes. 15:06:28 Fluoroscopy dose: 429 mGy 15:06:28 Flurop Dose total: 429 15:06:34 Dose Area Product 79461 mGy/cm. 15:06:45 Contrast amount:Isovue 300 57ml. 15:06:58 Maximum allowable dose exceeded? No. 15:07:05 Insertion/operative site no bleeding no hematoma. 15:07:10 Post right femoral artery:stable 15:07:14 Post Procedure Pulses reassessed and unchanged 15:07:23 Post-procedure physical assessment completed. ASA score P 2 - A patient with mild systemic disease as per Rick Otto MD. 15:07:27 Post procedure rhythm: sinus rhythm 15:07:32 Estimated blood loss: 10 ml 15:07:38 Post procedure instruction explained to patient.Patient verbalizes understanding. 15:08:01 Patient needs reinforcement of post procedure teaching. 15:08:07 Procedure and supply charges have been captured, reviewed, submitted and are correct. 15:08:13 Procedure Complication : No complications 15:08:17 Vital chart was stopped 15:08:18 See physician's report for complete and final results. 15:08:20 Report given to Pre/Post Procedure Room. 15:08:24 Patient transfered to Pre/Post Procedure Room with Stretcher. 15:08:27 Full Disclosure recording stopped 15:08:27 Procedure ended. 15:08:30 End room use (Document Last) Device Usage Item Name Manufacture Quantity Catalog Hospital Part Current Minimal L ot# / Number Charge Number Stock Stock Serial# Code ACIST Acist 1 47082 248620 128248 184842 20 Syringe Medical (22542) Systems Inc Bag Microtek 1 858304 99364 900577 5 Decanter Medical Inc. () ACIST Hand Acist 1 62140 364254 797779 466314 5 Control Medical (26634) Systems Inc ACIST Acist 1 34726 829693 081887 644754 5 Manifold Medical (49365) Systems Inc Tegaderm 4 3M 1 1626W 902045 639817 388790 5 x 4 (1626W) Medline Medline 1 [id number] 903691 23796 327717 5 Cath Pack ([id number]) DIAGNOSTIC Cardinal 1 XK2267 235729 87831 503237 30 Multipack Health 5Fr catheter set (PK4994) SHEATH 5FR Terumo 1 SSU685 597471 861472 945975 5 Hunter (RYB094) EMERALD Cardinal 1 502-939 639746 757703 658911 5 Guide Wire [facility] (314-316) MULTIPACK Cardinal 1 732288 5 JL 4.0 5Fr Health catheter MULTIPACK Cardinal 1 169438 5 3DRC 5Fr Health catheter MULTIPACK Cardinal 1 133410 5 Pigtail 5 Health Fr catheter EXOSEAL 5Fr Cardinal 1 EX500 554599 713879 503123 10 (EX500) Health Signature Audit Harwood Stage Time Signature Unsigned Intra-Procedure 05/01/2019 Diana Bardales 3:10:21 PM RT(R) Intra-Procedure 05/01/2019 Tracy Bell 3:11:08 PM RN Intra-Procedure 05/01/2019 Rick Cruz 3:11:36 PM Herberth RAMIREZ [facility] [address] [place] [address]
[~2019-04-30 12:21] MED LIST changes: +AVAPRO300 MG PO; +ZANAFLEX4 MG PO
[2019-04-30 12:51] LABS: BASOPHILS 0.6 % (0-2); EOSINOPHILS 2.4 % (0-7); HEMATOCRIT 35.3 % (36.0-48.0); HEMOGLOBIN 11.9 g/dL (12-16); IMMATURE GRANULOCYTES 0.3 % (0-5); LYMPHOCYTES 12.1 % (15-50); MCH 30.8 pg (26.0-34.0); MCHC 33.7 g/dL (31.0-37.0); MCV 91.5 fL (80.0-100.0); MEAN PLATELET VOLUME 8.9 fL (7.4-10.4); NEUTROPHILS 78.6 % (40-80); PLATELET COUNT 210 10x3/uL (130-400); RBC 3.86 10x6/uL (4.00-5.40); RDW 11.9 % (11.5-14.5); WBC 6.4 10x3/uL (4.8-10.8)
[2019-04-30 13:01] LABS: INR 1.04 (0.85-1.17); PROTIME 13.1 SECONDS (11.6-15.0)
[2019-04-30 13:05] LABS: ALBUMIN 3.2 g/dL (3.4-5.0); ALKALINE PHOSPHATASE 85 U/L (46-116); ALT (SGPT) 16 U/L (10-68); BILIRUBIN - TOTAL 0.33 mg/dL (0.2-1.3); CALC OSMOLALITY 271 mosm/kg (275-300); CALCIUM 8.8 mg/dL (8.5-10.1); CARBON DIOXIDE 28.6 mmol/L (21.0-32.0); CHLORIDE - SERUM 100 mmol/L (98-107); GLUCOSE 118 mg/dL (74-106); PROTEIN - SERUM 6.6 g/dL (6.4-8.2); SODIUM 135 mmol/L (136-145); UREA NITROGEN 16 mg/dL (7-18); eGFR NON AFRICAN AMERICAN 56 mL/min (90-120)
[2019-04-30 13:22] LABS: CREATINE KINASE 110 UL (21-215); MAGNESIUM - SERUM 1.8 mg/dL (1.8-2.4)
[2019-04-30 13:25] LABS: TROPONIN-I 0.076 ng/mL (0.000-0.060)
--- NOTE | 2019-04-30 13:27 | NUR ---
CRITICAL TROPONIN 0.076 REPORTED TO .
[2019-04-30 14:01] VITALS: BP 176/81
--- NOTE | 2019-04-30 14:26 | NUR ---
REPORT TO SERENA RIVERA PT TO ROOM 4397
--- NOTE | 2019-04-30 14:27 | NUR ---
RECEIVED REPORT FROM ER NURSE.
[2019-04-30 14:31] LABS: CKMB 2.1 U/L (0.0-3.6); CREATINE KINASE 142 UL (21-215)
[2019-04-30 14:34] LABS: TROPONIN-I 0.089 ng/mL (0.000-0.060)
--- NOTE | 2019-04-30 14:41 | MORECARE ---
CASE MANAGEMENT DISCHARGE SUMMARY PATIENT: CHRISTIAN CARDENAS MAY UNIT: [id number] ADM DATE: 04/30/19 AGE: 83 : 34 SEX: F ROOM/BED: D.2118 AUTHOR: JAMES STEVENSON PHYSICIAN: REFERRING PHYSICIAN: ALBANIA CARDENAS M.D. DATE OF SERVICE: 04/30/19 Discharge Plan Patient Name: CHRISTIAN CARDENAS Facility: [facility]:[place] : 1935 Planned Disposition: Home Anticipated Discharge Date: 05/02/19 Discharge Date: Expected LOS: 2 Initial Reviewer: [email or web address] Initial Review Date: 04/30/2019 Generated: 04/30/19 3:41 pm DCPIA - Discharge Planning Initial Assessment Updated by [email or web address]: Monse Reis on 04/30/19 2:41 pm * Is the patient Alert and Oriented? Yes * PCP Dr. Momin * Pharmacy [facility] * Preadmission Environment Home with Family * ADLs Partial Dependent * Partial ADLs (Assistance needed) Bathing * Equipment Walker Wheelchair * List name and contact numbers for known caregivers / representatives who currently or will assist patient after discharge: Stevenson Cardenas - son - [phone] Monika Diehl - daughter - [phone] * Verbal permission to speak to the caregivers and representatives has been obtained from the patient. Yes * Community resources currently utilized Home Health * Please name any agencies selected above. [facility] - CAREY signed in the ER * Additional services required to return to the preadmission environment? No * Can the patient safely return to the preadmission environment? Yes * Has this patient been hospitalized within the prior 30 days at any hospital? Yes Patient Name: CHRISTIAN CARDENAS Page [phone] at 1441 All edits/amendments must be made on the electronic document DICTATION DATE: 04/30/19 1441 EXECUTIVE PRODUCER: FLACA 04/30/19 1441 RPT#: [id number] DC DATE: STATUS: ADM IN [place] [address] [place] [address] END OF REPORT
--- NOTE | 2019-04-30 14:47 | NUR ---
RECEIVED PT TO ROOM 2117 VIA WHEELCHAIR, PT WAS ABLE TO TRANSFER SELF FROM WHEELCHAIR TO BED X1 ASSIST. PT A/O X4, RESP EVEN AND NONLABORED ON RA. LT FA IV IV SL. ORIENTED PT ROOM AND CALL LIGHT, WILL ASSESS PT AND START PLAN OF CARE.
--- NOTE | 2019-04-30 14:51 | MORECARE ---
CASE MANAGEMENT DISCHARGE SUMMARY PATIENT: CHRISTIAN CARDENAS MAY UNIT: [id number] ADM DATE: 04/30/19 AGE: 83 : 34 SEX: F ROOM/BED: D.1464 AUTHOR: GRAHAM,DOC PHYSICIAN: REFERRING PHYSICIAN: ALBANIA CARDENAS M.D. DATE OF SERVICE: 04/30/19 Discharge Plan Patient Name: CHRISTIAN CARDENAS Facility: [facility]:[place] : 1935 Planned Disposition: Home Anticipated Discharge Date: 05/02/19 Discharge Date: Expected LOS: 2 Initial Reviewer: [email or web address] Initial Review Date: 04/30/2019 Generated: 04/30/19 3:50 pm DCP- Discharge Planning Updated by [email or web address]: Monse Reis on 04/30/19 1:[address] DC PLAN: Return home with [facility] ANTICIPATED DC NEEDS: Denied known dc needs. CM met with patient to complete initial dc planning assessment. CM educated patient on the CM role and verbal consent given by patient to complete assessment. CM verified patient's address, phone number, and emergency contact phone numbers. Patient lives at home with her son. Patient currently has [facility] and wishes to resume at discharge. CAREY form signed by patient for resumption of [facility]. Signed form placed in chart and signed form given to patient. At discharge patient plans to return home with her son and feels this is a safe discharge. Patient denied further known discharge needs at this time. Patient reports her son will transport him/her home at time of discharge.CM will continue to follow and will assist as needed with dc plans/needs. CM notified [facility] of admission into the hospital. Monse Reis RN, [facility] DCPIA - Discharge Planning Initial Assessment Updated by [email or web address]: Monse Reis on 04/30/19 2:41 pm * Is the patient Alert and Oriented? Yes * PCP Dr. Momin * Pharmacy [facility] on [address] * Preadmission Environment Home with Family * ADLs Partial Dependent * Partial ADLs (Assistance needed) Bathing * Equipment Walker Wheelchair * List name and contact numbers for known caregivers / representatives who currently or will assist patient after discharge: Stevenson Cardenas - son - [phone] Monika Diehl - daughter - [phone] * Verbal permission to speak to the caregivers and representatives has been obtained from the patient. Yes * Community resources currently utilized Home Health * Please name any agencies selected above. [facility] - [facility] signed in the ER * Additional services required to return to the preadmission environment? No * Can the patient safely return to the preadmission environment? Yes * Has this patient been hospitalized within the prior 30 days at any hospital? Yes External Providers External Provider: [facility] Next Contact Date: Service Request Date: Service Type: Resolution: Reviewer: Comments: Last DP export: 04/30/19 1:41 p Patient Name: CHRISTIAN CARDENAS Page [phone] at 1451 All edits/amendments must be made on the electronic document DICTATION DATE: 04/30/19 145 SYSTEM CONFIGURATION SPECIALIST: FLACA 04/30/19 1450 RPT#: [id number] DC DATE: STATUS: ADM IN [facility] [address] [place] [address] END OF REPORT
[2019-04-30 15:18] VITALS: BP 139/41; Ht 149.9 cm; Wt 77.7 kg
--- NOTE | 2019-04-30 17:35 | NUR ---
HELPED PT TO BEDSIDE COMMODE AND BACK TO BED, PT DENIES ANY NEEDS AT THIS TIME,. CALL LIGHT IN REACH, FAMILY AT BEDSIDE, NAD NOTED,W ILL CONTINUE TO MONIOTOR.
[2019-04-30 20:18] LABS: CKMB 2.2 U/L (0.0-3.6); CREATINE KINASE 95 UL (21-215)
[2019-04-30 20:23] LABS: TROPONIN-I 0.101 ng/mL (0.000-0.060)
[2019-04-30 21:08] VITALS: BP 115/51
[2019-05-01 00:20] VITALS: BP 133/58
[2019-05-01 02:12] LABS: CKMB 1.4 U/L (0.0-3.6); CREATINE KINASE 82 UL (21-215)
[2019-05-01 02:14] LABS: TROPONIN-I 0.102 ng/mL (0.000-0.060)
[2019-05-01 04:13] VITALS: BP 120/48
[2019-05-01 09:12] VITALS: BP 138/65
--- NOTE | 2019-05-01 09:15 | NUR ---
AM MEDS GIVEN AT THIS TIME WITH A SIP OF WATER. PT RESTING COMFORTABLY IN BED, DENIES ANY NEEDS AT THIS TIME. CALL LIGHT IN REACH, BED ALARM ON, NAD NOTED, WILL CONTINUE TO MONITOR.
[2019-05-01 12:46] VITALS: BP 151/58
--- NOTE | 2019-05-01 13:55 | NUR ---
PRE-OP MEDS GIVEN AT THIS TIME.
--- NOTE | 2019-05-01 14:25 | NUR ---
PT TO PHARMACY TECHNICIAN INPATIENT VIA BED, NAD NOTED.
--- NOTE | 2019-05-01 15:29 | NUR ---
RECEIVED PT BACK TO ROOM 2117 VIA BED, PT SLEEPY BUT EASILY AROUSES TO VOICE. RT GROIN DRESSING CDI, VITAL SIGNS STABLE, PLACED ON FREQUENT VITAL SIGNS. PT DENIES ANY NEEDS AT THIS TIME. FAMILY AT BEDSIDE, CALL LIGHT IN REACH, NAD NOTED,W ILL CONTINUE TO MONITOR.
--- NOTE | 2019-05-01 16:03 | NUR ---
WHEN ASKED DAUGHTER (PATIENT SLEEPING POST PROCEDURE) ABOUT FLU SHOT, DAUGHTER STATES THAT SHE NEVER TAKES IT.
[2019-05-01 17:16] VITALS: BP 143/51
--- NOTE | 2019-05-01 17:19 | MORECARE ---
CASE MANAGEMENT DISCHARGE SUMMARY PATIENT: CHRISTIAN CARDENAS MAY UNIT: [id number] ADM DATE: 04/30/19 AGE: 83 : 34 SEX: F ROOM/BED: D.6663 AUTHOR: JAMES STEVENSON PHYSICIAN: REFERRING PHYSICIAN: ALBANIA CARDENAS M.D. DATE OF SERVICE: 05/01/19 Discharge Plan Patient Name: CHRISTIAN CARDENAS Facility: [facility]:[place] : 1935 Planned Disposition: Home Anticipated Discharge Date: 05/02/19 Discharge Date: Expected LOS: 2 Initial Reviewer: [email or web address] Initial Review Date: 04/30/2019 Generated: 05/01/19 6:19 pm Comments DCP- Discharge Planning Updated by [id number]: Hank Bentley on 05/01/19 4:[address] Patient Name: CHRISTIAN CARDENAS Encounter No: [id number] : 1935 Primary Insurance: MEDICARE A & B Anticipated DC Date: 05-02-2019 Planned Disposition: Home WITH HOME HEALTH External Planned Provider: [facility] DCP follow-up note: CM RECEIVED DISCHARGE ORDER, FAXED DISCHARGE INFORMATION TO [facility] AT [phone], FOR RESUMPTION OF HOME HEALTH CARE. DISCHARGE COORDINATOR NURSE NOTIFIED. TOD Cavazos DCP- Discharge Planning Updated by [email or web address]: Monse Reis on 04/30/19 1:[address] DC PLAN: Return home with [facility] ANTICIPATED DC NEEDS: Denied known dc needs. CM met with patient to complete initial dc planning assessment. CM educated patient on the CM role and verbal consent given by patient to complete assessment. CM verified patient's address, phone number, and emergency contact phone numbers. Patient lives at home with her son. Patient currently has [facility] and wishes to resume at discharge. CAREY form signed by patient for resumption of [facility]. Signed form placed in chart and signed form given to patient. At discharge patient plans to return home with her son and feels this is a safe discharge. Patient denied further known discharge needs at this time. Patient reports her son will transport him/her home at time of discharge.CM will continue to follow and will assist as needed with dc plans/needs. CM notified [facility] of admission into the hospital. Monse Reis RN, CCM DCPIA - Discharge Planning Initial Assessment Updated by [email or web address]: Monse Reis on 04/30/19 2:41 pm * Is the patient Alert and Oriented? Yes * PCP Dr. Momin * [facility] [address] * Preadmission Environment Home with Family * ADLs Partial Dependent * Partial ADLs (Assistance needed) Bathing * Equipment Walker Wheelchair * List name and contact numbers for known caregivers / representatives who currently or will assist patient after discharge: Stevenson Cardenas - son - [phone] Monika Diehl - daughter - [phone] * Verbal permission to speak to the caregivers and representatives has been obtained from the patient. Yes * Community resources currently utilized Home Health * Please name any agencies selected above. [facility] - CARE[facility] signed in the ER * Additional services required to return to the preadmission environment? No * Can the patient safely return to the preadmission environment? Yes * Has this patient been hospitalized within the prior 30 days at any hospital? Yes Last DP export: 04/30/19 1:51 p Patient Name: CHRISTIAN CARDENAS Page 21060 at 171 All edits/amendments must be made on the electronic document DICTATION DATE: 05/01/191718 FILLER SHREDDER MACHINE: FLACA 05/01/191718 RPT#: [id number] DC DATE: STATUS: ADM IN [place] [address] [place] [address] END OF REPORT
--- NOTE | 2019-05-01 17:49 | NUR ---
PROVIDED VERBAL AND WRITTEN DISCHARGE TEACHING TO PT AND DAUGHTER, BOTH VERBALIZED UNDERSTANDING REGARDING TEACHING. PT EATING DINNER WILL D/C IV WHEN PT IS DONE WITH DINNER.
--- NOTE | 2019-05-01 18:25 | NUR ---
LT FA IV D/C WITH CATHETER TIP INTACT. PT LEFT UNIT VIA WHEELCHAIR, WITH ALL BELONGINGS, ACCOMPANIED BY FAMILY.
--- NOTE | 2019-05-02 07:33 | MORECARE ---
CASE MANAGEMENT DISCHARGE SUMMARY PATIENT: CHRISTIAN CARDENAS MAY UNIT: [id number] ADM DATE: 04/30/19 AGE: 83 : 34 SEX: F ROOM/BED: D.9588 AUTHOR: JAMES STEVENSON PHYSICIAN: REFERRING PHYSICIAN: ALBANIA CARDENAS M.D. DATE OF SERVICE: 05/02/19 Discharge Plan Patient Name: CHRISTIAN CARDENAS Facility: [facility]:[place] : 1935 Planned Disposition: Home with Home Health Anticipated Discharge Date: 05/01/19 Discharge Date: 05/01/2019 Expected LOS: 1 Initial Reviewer: [email or web address] Initial Review Date: 04/30/2019 Generated: 05/02/19 8:32 am Comments DCP- Discharge Planning Updated by [email or web address]: Hank Bentley on 05/01/19 4:[address] Patient Name: CHRISTIAN CARDENAS Encounter No: [id number] : 1935 Primary Insurance: MEDICARE A & B Anticipated DC Date: 05-02-2019 Planned Disposition: Home WITH HOME HEALTH External Planned Provider: [facility] DCP follow-up note: CM RECEIVED DISCHARGE ORDER, FAXED DISCHARGE INFORMATION TO [facility] AT [phone], FOR RESUMPTION OF HOME HEALTH CARE. RESISTANCE BRAZER NURSE NOTIFIED. TOD Cavazos DCP- Discharge Planning Updated by [email or web address]: Monse Reis on 04/30/19 1:[address] DC PLAN: Return home with [facility] ANTICIPATED DC NEEDS: Denied known dc needs. CM met with patient to complete initial dc planning assessment. CM educated patient on the CM role and verbal consent given by patient to complete assessment. CM verified patient's address, phone number, and emergency contact phone numbers. Patient lives at home with her son. Patient currently has [facility] and wishes to resume at discharge. CAREY form signed by patient for resumption of [facility]. Signed form placed in chart and signed form given to patient. At discharge patient plans to return home with her son and feels this is a safe discharge. Patient denied further known discharge needs at this time. Patient reports her son will transport him/her home at time of discharge.CM will continue to follow and will assist as needed with dc plans/needs. CM notified [facility] of admission into the hospital. Monse Reis RN, CCM DCPIA - Discharge Planning Initial Assessment Updated by [email or web address]: Monse Reis on 04/30/19 2:41 pm * Is the patient Alert and Oriented? Yes * PCP Dr. Momin * Pharmacy [facility] on [address] * Preadmission Environment Home with Family * ADLs Partial Dependent * Partial ADLs (Assistance needed) Bathing * Equipment Walker Wheelchair * List name and contact numbers for known caregivers / representatives who currently or will assist patient after discharge: Stevenson Cardenas - son - [phone] Monika Diehl - daughter - [phone] * Verbal permission to speak to the caregivers and representatives has been obtained from the patient. Yes * Community resources currently utilized Home Health * Please name any agencies selected above. [facility] - CARE[facility] signed in the ER * Additional services required to return to the preadmission environment? No * Can the patient safely return to the preadmission environment? Yes * Has this patient been hospitalized within the prior 30 days at any hospital? Yes Last DP export: 05/01/19 4:19 p Patient Name: CHRISTIAN CARDENAS Page 78719 at 0733 All edits/amendments must be made on the electronic document DICTATION DATE: 05/02/19731 BLEACH BOILER PACKER: FLACA 05/02/19731 RPT#: [id number] DC DATE:05/01/19 STATUS: DIS IN [id number] [place] [address] END OF REPORT
--- NOTE | 2019-05-03 13:56 | OP ---
PATIENT NAME: CHRISTIAN GARCIAS MEDICAL RECORD: [id number] :[birth year] LOCATION:D.M2 D.2118 ADMISSION DATE:04/30/19 SURGEON: MARKO TOWNSEND MD DATE OF OPERATION: 05/01/2019 PROCEDURE: Left heart catheterization, selective coronary angiography, right femoral artery approach. CATHETERS: A 5-Bahraini sheath, 5/4 left and right Sesar, 5/4 pig. The procedure was well tolerated. The patient returned to the haines. Sheath was removed. FINDINGS: Left ventriculography in 30-degree WILHELM view: Normal wall motion and normal systolic function. CORONARY ANATOMY: LEFT MAIN: Left main is free of disease. LAD: Free of disease in the diagonal system. CIRCUMFLEX: Area of previous seen is widely patent with left dominant system. No evidence of restenosis. 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 RIGHT CORONARY ARTERY: Rudimentary, has a proximal stent that is widely patent. 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 Normal left ventricular systolic function. TRANSINT:[id number] Voice Confirmation ID: [id number] DOCUMENT ID: [id number] MARKO TOWNSEND MD at 1356 CC: [id number] DICTATION DATE: 05/01/19 1508 BRICK SORTER: 05/01/19 2254 DIS IN 05/01/19 [address] [place] [address]
--- NOTE | 2019-06-08 13:51 | DS ---
PATIENT:CHRISTIAN GARCIAS NOVEMBER :33 MEDICAL RECORD: [id number] DISCHARGE SUMMARY ADMISSION DATE: 04/30/19 DISCHARGE DATE: 05/01/19 DATE OF ADMISSION: 04/30/2019 DATE OF DISCHARGE: 05/01/2019 PROBLEM LIST: 1. Chest pain with negative angiography. 2. Hypertension. BRIEF HISTORY AND HOSPITAL COURSE: An 84-year-old female admitted with chest pain, known history of coronary artery disease. Symptoms consistent with previous angina. Underwent diagnostic angiography, which showed no evidence of restenosis, no progression of burns paiute disease. Discharged in good condition. ACTIVITY: As tolerated. DIET: AHA diet. MEDICATIONS: No change in medication. FOLLOWUP: She will be seen back in the office for her scheduled followup. TRANSINT:[id number] Voice Confirmation ID: [id number] DOCUMENT ID: [id number] MARKO TOWNSEND MD at 1351 CC: [id number] DICTATION DATE: 06/07/19 1406 UNIFORM ATTENDANT: 06/08/19 0617 DIS IN 05/01/19 [id number] [place] [address]
== END 2019-05-01 18:26 | disposition home health service (06) | DRG 287 ==
LOC: D.ER 12:21 → D.M2 13:41
PROVIDERS: Family Medicine; Internal Medicine Interventional Cardiology; ADMIT Internal Medicine Cardiovascular Disease; ATTEND Internal Medicine Cardiovascular Disease
PROC: B2151ZZ Fluoroscopy of Left Heart using Low Osmolar Contrast (ICD-10-PCS; 2019-05-01)
PROC: 4A023N7 Measurement of Cardiac Sampling and Pressure, Left Heart, Percutaneous Approach (ICD-10-PCS; 2019-05-01)
PROC: B2111ZZ Fluoroscopy of Multiple Coronary Arteries using Low Osmolar Contrast (ICD-10-PCS; principal; 2019-05-01 14:00)
DX: I25.110 Atherosclerotic heart disease of native coronary artery with unstable angina pectoris (principal); I10 Essential (primary) hypertension; E78.5 Hyperlipidemia, unspecified; Z87.891 Personal history of nicotine dependence

== ENCOUNTER 2019-05-23 18:46 | Observation (INO) | payer MEDICARE, BC ==
[~2019-05-23] VITALS: Ht 149.9 cm; Wt 82.7 kg
[2019-05-23 19:17] LABS: BASOPHILS 0.7 % (0-2); EOSINOPHILS 1.2 % (0-7); HEMATOCRIT 39.3 % (36.0-48.0); HEMOGLOBIN 13.4 g/dL (12-16); IMMATURE GRANULOCYTES 0.1 % (0-5); LYMPHOCYTES 16.1 % (15-50); MCH 31.5 pg (26.0-34.0); MCHC 34.1 g/dL (31.0-37.0); MCV 92.5 fL (80.0-100.0); MEAN PLATELET VOLUME 9.1 fL (7.4-10.4); MONOCYTES 5.7 % (2-11); NEUTROPHILS 76.2 % (40-80); PLATELET COUNT 238 10x3/uL (130-400); RBC 4.25 10x6/uL (4.00-5.40); RDW 12.1 % (11.5-14.5); WBC 7.6 10x3/uL (4.8-10.8)
[2019-05-23 19:35] LABS: INR 1.04 (0.85-1.17); PROTIME 13.1 SECONDS (11.6-15.0)
[2019-05-23 19:36] LABS: APTT 32.7 SECONDS (22.8-39.4)
[2019-05-23 19:37] LABS: CALC OSMOLALITY 266 mosm/kg (275-300); CALCIUM 9.2 mg/dL (8.5-10.1); CARBON DIOXIDE 28.7 mmol/L (21.0-32.0); CHLORIDE - SERUM 98 mmol/L (98-107); CREATININE - SERUM 0.9 mg/dL (0.6-1.3); GLUCOSE 110 mg/dL (74-106); POTASSIUM - SERUM 3.8 mmol/L (3.5-5.1); SODIUM 132 mmol/L (136-145); UREA NITROGEN 16 mg/dL (7-18); eGFR NON AFRICAN AMERICAN 63 mL/min (90-120)
[2019-05-23 19:58] LABS: ALBUMIN 3.7 g/dL (3.4-5.0); ALKALINE PHOSPHATASE 94 U/L (46-116); ALT (SGPT) 20 U/L (10-68); BILIRUBIN - TOTAL 0.56 mg/dL (0.2-1.3); CKMB 1.8 U/L (0.0-3.6); CREATINE KINASE 88 UL (21-215); PROTEIN - SERUM 7.2 g/dL (6.4-8.2)
[2019-05-23 20:04] LABS: TROPONIN-I 0.121 ng/mL (0.000-0.060)
[2019-05-23 22:59] VITALS: BP 187/74; Ht 149.9 cm; Wt 82.7 kg
[2019-05-24 01:59] LABS: CKMB 1.7 U/L (0.0-3.6); CREATINE KINASE 85 UL (21-215)
[2019-05-24 02:03] LABS: TROPONIN-I 0.128 ng/mL (0.000-0.060)
[2019-05-24 04:00] VITALS: BP 155/49
[2019-05-24 04:42] LABS: APPEARANCE CLEAR (CLEAR); BILIRUBIN NEGATIVE (NEGATIVE); COLOR STRAW (YELLOW); GLUCOSE NEGATIVE (NEGATIVE); KETONE NEGATIVE (NEGATIVE); NITRITE NEGATIVE (NEGATIVE); PROTEIN NEGATIVE (NEGATIVE); SPECIFIC GRAVITY 1.005 (1.005-1.020); UROBILINOGEN NORMAL (NORMAL)
[2019-05-24 04:43] LABS: BACTERIA FEW /hpf (NEGATIVE); EPITHELIAL CELLS 0-5 /hpf (0-5); RED CELLS - URINE 0-5 /hpf (0-5); WHITE CELLS - URINE 0-5 /hpf (NEGATIVE)
--- NOTE | 2019-05-24 07:15 | NUR ---
RECEIVED PT IN BED EYES CLOSED RESP UNLABORED SKIN W/D NAD NOTED
[2019-05-24 07:21] LABS: BASOPHILS 0.4 % (0-2); EOSINOPHILS 1.8 % (0-7); HEMATOCRIT 36.2 % (36.0-48.0); IMMATURE GRANULOCYTES 0.3 % (0-5); LYMPHOCYTES 15.8 % (15-50); MCH 30.8 pg (26.0-34.0); MCHC 33.1 g/dL (31.0-37.0); MCV 92.8 fL (80.0-100.0); MEAN PLATELET VOLUME 9.1 fL (7.4-10.4); MONOCYTES 9.2 % (2-11); NEUTROPHILS 72.5 % (40-80); PLATELET COUNT 234 10x3/uL (130-400); RDW 12.3 % (11.5-14.5); WBC 6.7 10x3/uL (4.8-10.8)
[2019-05-24 07:43] LABS: ALBUMIN 3.2 g/dL (3.4-5.0); ALKALINE PHOSPHATASE 83 U/L (46-116); ALT (SGPT) 17 U/L (10-68); BILIRUBIN - TOTAL 0.47 mg/dL (0.2-1.3); CALC OSMOLALITY 275 mosm/kg (275-300); CALCIUM 8.6 mg/dL (8.5-10.1); CARBON DIOXIDE 29.1 mmol/L (21.0-32.0); CHLORIDE - SERUM 102 mmol/L (98-107); CKMB 1.7 U/L (0.0-3.6); CREATINE KINASE 89 UL (21-215); GLUCOSE 99 mg/dL (74-106); POTASSIUM - SERUM 3.6 mmol/L (3.5-5.1); PROTEIN - SERUM 6.7 g/dL (6.4-8.2); SODIUM 137 mmol/L (136-145); UREA NITROGEN 17 mg/dL (7-18); eGFR NON AFRICAN AMERICAN 56 mL/min (90-120)
[2019-05-24 07:45] LABS: TROPONIN-I 0.119 ng/mL (0.000-0.060)
[2019-05-24 09:00] VITALS: BP 197/71
[2019-05-24 14:20] VITALS: BP 176/72
--- NOTE | 2019-05-24 16:25 | NUR ---
REVIEWED DISCHARGE INSTRUCTIONS WITH PT STATES UNDERSTANDING HAS RX FOR CARDURA PO COPY OF DISCHARGE GIVEN DCD SALINE LOCK TO LAC WITH IV CATHETER INTACT SITE FREE OF REDNESS OR EDEMA PT DISCHARGED HOME IN STABLE CONDITION VIA W/C WITH ALL PERSONAL BELONGINGS
[2019-05-25] MEDS ORDERED: ISOSORBIDE MONO30 M1 PO (12:40)
--- NOTE | 2019-05-25 17:38 | SS ---
PATIENT:CHRISTIAN GARCIAS NOVEMBER :33 MEDICAL RECORD: [id number] DISCHARGE SUMMARY ADMISSION DATE: 05/23/19 DISCHARGE DATE: 05/24/19 Date assigned to observation was 05/23/2019 and she was discharged on 05/24/2019. DISCHARGE DIAGNOSES: Hypertension, chronic lumbar pain, right ear pain. HISTORY: This is an 83-year-old female, who has a history of coronary artery disease. She was just admitted on April 30 with chest pain. She had a mildly elevated troponin at that time. She had angiogram done, which did not show any blockage or restenosis and she was discharged home. I saw her yesterday in followup of that. Her blood pressure is elevated. She has chronic lower back pain with severe arthritis and her blood pressure seems to go up higher when her pain is worse. Added Cardura to her blood pressure regimen. She has not gotten it filled yet and roughly 3 hours after I saw her, she started having headache and shoulder pain and her blood pressure had gone up a little bit more. She was concerned it was her heart. She presented to the ER and was assigned to observation. It is noted that her troponin was elevated at 0.121 initially in the ER. PAST MEDICAL AND SURGICAL HISTORY: Significant for hypertension, coronary artery disease, severe arthritis, high cholesterol, lumbar canal stenosis, glaucoma. PAST SURGICAL HISTORY: Coronary stents, right total knee arthroplasty, hysterectomy, cholecystectomy. ALLERGIES: REPORTEDLY TO IRBESARTAN, BUT SHE TAKES IRBESARTAN NOW. HOME MEDICATIONS: Ezetimibe 10 mg once a day, [place] 10/325 now 4 times a day (just increased from 3 yesterday), irbesartan 300 once a day, fish oil 1000 mg capsules 2 a day, latanoprost 0.005% eyedrops at bedtime, baby aspirin 81 mg a day, and Plavix 75 mg a day. SOCIAL HISTORY: She is retired, . FAMILY HISTORY: Noncontributory. HABITS: Never smokes. No alcohol or drugs. REVIEW OF SYSTEMS: MUSCULOSKELETAL: Has chronic lower back pain. NEUROLOGIC: No migraines or seizures. PSYCHIATRIC: She probably is depressed, but no anxiety. PHYSICAL EXAMINATION: VITAL SIGNS: Temperature 98.1, pulse 84, respirations 20, blood pressure 197/71, O2 sat is 98%. GENERAL: She is awake and alert. She does not appear to be in acute distress at this time. HEENT: The right TM was visualized. There is no erythema. There is a little fluid behind the ear. Right TM is clear. NECK: Supple. SHORT STAY SUMMARY [id number] CHRISTIAN GARCIAS HEART: Regular rate and rhythm. LUNGS: Clear. ABDOMEN: Soft, flat, nontender. BACK: She has significant tenderness in the lumbar area. Straight leg raise is negative for radiating pain. EXTREMITIES: No edema. LABORATORY WORK: Initial troponin was 0.121 and a second value was 0.128 and a third value was 0.119. Her basic metabolic panel was unremarkable. Liver functions were unremarkable. CBC is normal. Urinalysis, trace blood, specific gravity 1.05. EKG shows no changes. A chest x-ray done through the ER shows no acute cardiopulmonary process. There are some degenerative changes around the shoulder. Emergency department scheduled CT of the lumbar spine without contrast showing extensive multilevel degenerative changes in the lumbar spine. Mild anterior wedging of L1 is likely chronic. HOSPITAL COURSE: The patient was assigned to observation in telemetry. Her blood pressure was fairly good until the last reading that shows elevation. She has not really had any chest pain at all. Cardiac enzymes have been elevated the last 2-3 times she has been in the hospital and she just had an angiogram on May 01 that did not show any significant blockage at all. Cardiology was consulted today, and the case was reviewed and cardiology talked to the patient. There was a consensus that basically her blood pressure is elevated and she needs to start the medication that we added just yesterday. She has not gotten it filled yet. We need to give it a chance. We are going to discharge her home now on her usual home medications with Cardura 1 mg twice a day added to that and I am going to see her back in a week and cardiology will see her as they wish. TRANSINT:[id number] Voice Confirmation ID: [id number] DOCUMENT ID: [id number] ANTHONY FARR MD at 1738 CC: [id number] DICTATION DATE: 05/24/19 1433 AP PROCESSOR: 05/25/19 0107 DIS IN 05/24/19 [id number] [place] [address]
== END 2019-05-24 16:25 | disposition home or self-care (01) ==
LOC: D.ER 18:46 → D.M2 21:13 → OBSVTIME 21:13 → D.ER 21:13 → D.M2 21:13
PROVIDERS: Family Medicine; ADMIT Family Medicine; ATTEND Family Medicine
DX: I11.0 Hypertensive heart disease with heart failure (principal); R79.89 Other specified abnormal findings of blood chemistry; I25.10 Atherosclerotic heart disease of native coronary artery without angina pectoris; I34.0 Nonrheumatic mitral (valve) insufficiency; G89.29 Other chronic pain; M54.5 Low back pain; R51 Headache; I50.9 Heart failure, unspecified; H66.91 Otitis media, unspecified, right ear

== ENCOUNTER 2019-05-25 11:14 | Emergency (ER) | payer MEDICARE, BC ==
[~2019-05-25] VITALS: Ht 149.9 cm; Wt 77.3 kg
[2019-05-25 11:20] VITALS: Ht 149.9 cm; Wt 77.3 kg
[2019-05-25 11:47] LABS: ANION GAP 8.3 mmol/L (8-16); CALCIUM 8.6 mg/dL (8.5-10.1); CARBON DIOXIDE 29.4 mmol/L (21.0-32.0); CREATININE - SERUM 0.9 mg/dL (0.6-1.3); POTASSIUM - SERUM 3.7 mmol/L (3.5-5.1)
[2019-05-25 11:54] LABS: BASOPHILS 0.3 % (0-2); EOSINOPHILS 2.4 % (0-7); HEMATOCRIT 37.4 % (36.0-48.0); HEMOGLOBIN 12.7 g/dL (12-16); IMMATURE GRANULOCYTES 0.2 % (0-5); LYMPHOCYTES 19.8 % (15-50); MCH 31.4 pg (26.0-34.0); MCV 92.3 fL (80.0-100.0); MEAN PLATELET VOLUME 9.3 fL (7.4-10.4); MONOCYTES 9.9 % (2-11); NEUTROPHILS 67.4 % (40-80); PLATELET COUNT 234 10x3/uL (130-400); RBC 4.05 10x6/uL (4.00-5.40); RDW 12.1 % (11.5-14.5); WBC 6.2 10x3/uL (4.8-10.8)
[2019-05-25 12:10] LABS: ALBUMIN 3.3 g/dL (3.4-5.0); BILIRUBIN - TOTAL 0.52 mg/dL (0.2-1.3); THYROID STIMULATING HORMONE 0.4 uIU/mL (0.36-3.74)
[2019-05-25 12:18] LABS: TROPONIN-I 0.12 ng/mL (0.000-0.060)
[2019-05-25] MEDS ORDERED: ISOSORBIDE MONO30 M1 PO (12:40)
[2019-05-25 13:22] VITALS: BP 139/95
== END 2019-05-25 13:23 | disposition home or self-care (01) ==
LOC: D.ER 11:14
PROVIDERS: Family Medicine
DX: I10 Essential (primary) hypertension (principal); R07.9 Chest pain, unspecified

== ENCOUNTER 2019-07-19 19:22 | Inpatient (IN) | payer MEDICARE, BC ==
[~2019-07-19] VITALS: Ht 149.9 cm; Wt 91.2 kg
[~2019-07-19 19:22] MED LIST changes: +ISOSORBIDE MONO30 M1 PO
[2019-07-19] MEDS ORDERED: NORVASC5 MG PO (19:32)
[2019-07-19 19:50] LABS: BASOPHILS 0.1 % (0-2); EOSINOPHILS 0.7 % (0-7); HEMOGLOBIN 13.4 g/dL (12-16); IMMATURE GRANULOCYTES 0.3 % (0-5); LYMPHOCYTES 8.8 % (15-50); MCH 31.5 pg (26.0-34.0); MCHC 34.4 g/dL (31.0-37.0); MCV 91.8 fL (80.0-100.0); MEAN PLATELET VOLUME 9.3 fL (7.4-10.4); MONOCYTES 7.5 % (2-11); NEUTROPHILS 82.6 % (40-80); PLATELET COUNT 241 10x3/uL (130-400); RBC 4.25 10x6/uL (4.00-5.40); WBC 9.1 10x3/uL (4.8-10.8)
[2019-07-19 20:02] LABS: CALCIUM 8.3 mg/dL (8.5-10.1); CARBON DIOXIDE 27.5 mmol/L (21.0-32.0); CREATININE - SERUM 1.1 mg/dL (0.6-1.3); POTASSIUM - SERUM 4.5 mmol/L (3.5-5.1)
[2019-07-19 20:07] LABS: ALBUMIN 3.2 g/dL (3.4-5.0); BILIRUBIN - TOTAL 0.58 mg/dL (0.2-1.3); MAGNESIUM - SERUM 2.2 mg/dL (1.8-2.4); PROTEIN - SERUM 6.4 g/dL (6.4-8.2)
--- NOTE | 2019-07-19 20:20 | NUR ---
URINE SENT TO LAB
[2019-07-19 20:25] LABS: APPEARANCE CLEAR (CLEAR); COLOR STRAW (YELLOW)
[2019-07-19 20:26] LABS: BILIRUBIN NEGATIVE (NEGATIVE); GLUCOSE NEGATIVE (NEGATIVE); KETONE NEGATIVE (NEGATIVE); NITRITE NEGATIVE (NEGATIVE); PROTEIN NEGATIVE (NEGATIVE); UROBILINOGEN NORMAL (NORMAL)
[2019-07-19 20:30] LABS: BACTERIA FEW /hpf (NEGATIVE); EPITHELIAL CELLS 0-5 /hpf (0-5); RED CELLS - URINE 0-5 /hpf (0-5); WHITE CELLS - URINE NSEEN /hpf (NEGATIVE)
--- NOTE | 2019-07-19 21:48 | NUR ---
PT TO RADIOLOGY.
--- NOTE | 2019-07-19 22:05 | NUR ---
PT RETURNED FROM RADIOLOGY.
[2019-07-20 00:57] VITALS: BP 138/44; BMI 40.7
--- NOTE | 2019-07-20 01:13 | NUR ---
PT ARRIVED ON UNIT VIA STRETCHER. TRANSFERRED TO BED AND POSITIONED FOR COMFORT. CONNECTED SUCTION TO RIGHT NG TUBE TO LIS PER ORDER. ORAL CARE SUPPLIES BROUGHT TO ROOM AND INSTRUCTED PT ON USE. DENTURE SUPPLIES BROUGHT TO ROOM. POSITIONED FOR COMFORT ON RIGHT SIDE WITH PILLOWS. BED ALARM IN USE FOR FALL PRECAUTIONS. WILL MONITOR FOR NEEDS.
--- NOTE | 2019-07-20 01:14 | NUR ---
ADMISSION ASSESSMENT AND HISTORY COMPLETE. HOME MED REC REVIEWED WITH PT AND COMPLETED.
[2019-07-20 05:54] VITALS: BP 135/48
[2019-07-20 06:10] LABS: ALBUMIN 2.8 g/dL (3.4-5.0); ANION GAP 11.3 mmol/L (8-16); BASOPHILS 0.3 % (0-2); BILIRUBIN - TOTAL 0.46 mg/dL (0.2-1.3); CALCIUM 8.1 mg/dL (8.5-10.1); CARBON DIOXIDE 26.8 mmol/L (21.0-32.0); CREATININE - SERUM 1.1 mg/dL (0.6-1.3); EOSINOPHILS 1.5 % (0-7); HEMATOCRIT 35.3 % (36.0-48.0); HEMOGLOBIN 11.8 g/dL (12-16); IMMATURE GRANULOCYTES 0.1 % (0-5); LYMPHOCYTES 19.7 % (15-50); MCH 30.8 pg (26.0-34.0); MCHC 33.4 g/dL (31.0-37.0); MCV 92.2 fL (80.0-100.0); MEAN PLATELET VOLUME 9.3 fL (7.4-10.4); MONOCYTES 11.2 % (2-11); NEUTROPHILS 67.2 % (40-80); PLATELET COUNT 248 10x3/uL (130-400); POTASSIUM - SERUM 4.1 mmol/L (3.5-5.1); RBC 3.83 10x6/uL (4.00-5.40); RDW 12.1 % (11.5-14.5)
--- NOTE | 2019-07-20 08:00 | NUR ---
ASSESSMENT PER FLOW SHEET. PT IS WITHOUT DISTRESS.STAES SHE HAS BEEN WITHOUT NAUSEA AND OR VOMITING.NGT RIGHT NARE IN PLACE WITH APROX 100CC OF CLEAR/ LIGHT BROWN DRANAGE.FALL PREVENTION IN PLACE WITH BED ALARM.MONITOR FOR NEEDS
[2019-07-20 13:17] VITALS: Ht 149.9 cm; Wt 91.2 kg
[2019-07-20 13:36] VITALS: BP 136/57
--- NOTE | 2019-07-20 15:57 | NUR ---
COMPLAINS OF NAUSEA THIS AFTERNOON. DIET CHANGED BACK TO FULL LIQUID.MEDS ORDERED PER SEP.
--- NOTE | 2019-07-20 16:35 | MORECARE ---
CASE MANAGEMENT DISCHARGE SUMMARY PATIENT: CHRISTIAN GARCIAS MAY UNIT: [id number] ADM DATE: 07/19/19 AGE: 84 : 34 SEX: F ROOM/BED: D.2226 AUTHOR: JAMES STEVENSON PHYSICIAN: REFERRING PHYSICIAN: ANTHONY FARR MD DATE OF SERVICE: 07/20/19 Discharge Plan Patient Name: CHRISTIAN GARCIAS [facility] [facility] 1935 Planned Disposition: Home with Home Health Anticipated Discharge Date: Discharge Date: Expected LOS: Initial Reviewer: [email or web address] Initial Review Date: 07/20/2019 Generated: 07/20/19 5:35 pm Comments DCP- Discharge Planning Updated by [email or web address]: Sindy Fischer on 07/20/19 3:[address] CM met with patient to discuss discharge planning. She states she is not feeling well and would like me to return at a later time. CM will continue to follow and assist with discharge planning/needs. Patient Name: CHRISTIAN GARCIAS Page [id number] at 1635 All edits/amendments must be made on the electronic document DICTATION DATE: 07/20/191634 PROFILE SHAPER OPERATOR: FLACA 07/20/19 163 RPT#: [id number] DC DATE: STATUS: ADM IN [facility] [address] [place] [address] END OF REPORT
[2019-07-20 17:54] VITALS: BP 159/54
--- NOTE | 2019-07-20 18:35 | NUR ---
PATIENT HAVING INCREASED PAIN IN ABDOMEN WITH NAUSEA AND VOMITING.MEDS ORDERED PER SEP.PAGE TO DR SIMON [phone].
--- NOTE | 2019-07-20 19:03 | NUR ---
18 VIETNAMESE NGT INSERTED VIA RIGHT NARE. APROX 150 CC OF VERY THICK YELLOW/ BROWN EMESIS NOTED IN CANISTER AND TUBING.XRAY HERE FOR KUB.
--- NOTE | 2019-07-20 19:15 | NUR ---
PATIENT ALERT AND ORIENTED WHEN ENTERING THE ROOM. SEVERAL FAMILY MEMBERS AT BEDSIDE. PATIENT RESPONDS WHEN ASEKD QUESTIONS BUT VERY OBVIOUS DOES NOT FEEL WELL AT THIS TIME. NGT TO THE RIGHT HERNANDEZ PLACED SHORTLY BEFORE SHIFT CHANGE. ABDOMEN DISTENDED. ABDOMINAL BINDER IN PLACE. LEFT FOREARM IV THAT IS INFUSING NS AT THIS TIME. APPEARS PATENT WITH NO SWELLING OR REDNESS AT THE INSERTION SITE. PATIENT REPORTS PAIN IN ABDOMEN AND NAUSEA BUT NO MEDICATION AVAILABLE AT THIS TIME. PROVIDED EDUCATION TO FAMILY MEMEBERS. FAMILY AND PATIENT BOTH WANT TO KNOW THE NEXT COURSE OF ACTION. EDUCATED THAT GUT REST AND DECOMPRESSION WERE ORDERS OF NOW BUT INSTRUCTED TO DISCUSS FURTHER PLANS WITH IN THE AM. PATIENT AND FAMILY VERBALIZE UNDERSTANDING. DENIES FURTHER NEEDS AT THIS TIME. CALL LIGHT IN REACH. FAMILY MEMEBER WILL REMAIN AT BEDSIDE THROUGH NIGHT. CALL LIGHT IN REACH.
[2019-07-20 20:46] VITALS: BP 186/51
--- NOTE | 2019-07-20 23:45 | NUR ---
RESTING COMFORTABLY WITH NO SIGNS OR SYMPTOMS OF DISTRESS AT THIS TIME. SCD'S ON. ABDOMINAL BINDER IN PLACE. IV IN THE LEFT FOREARM REMAINS PATENT. CALL LIGHT IN REACH. SON AT BEDSIDE. CPOC.
[2019-07-21 00:19] VITALS: BP 157/71
--- NOTE | 2019-07-21 03:10 | NUR ---
BED BATH PROVIDED
--- NOTE | 2019-07-21 03:17 | NUR ---
I have reviewed this patient and I concur with the Shift Assessment completed by the Licensed Practical Nurse today this shift.
--- NOTE | 2019-07-21 03:46 | NUR ---
SIGNED BED ALARM REFUSAL ON CHART.
[2019-07-21 04:54] VITALS: BP 105/51
--- NOTE | 2019-07-21 05:59 | NUR ---
ABDOMEN REMAINS UNCHANGED. READJUSTED ABDOMINAL BINDER. BINDER IN PLACE. PATIENT STATES THAT ABDOMEN FEELS BETTER WITH BINDER. PATIENT TALKING AND LAUGHING. APPEARS IN BETTER SPIRITS THAN BEGINNING OF SHIFT. SON REMAINS AT BEDSIDE.
[2019-07-21 08:21] VITALS: BP 147/60
--- NOTE | 2019-07-21 10:16 | NUR ---
PT ALERT X 4. BREATH SOUNDS CLEAR BILAT. BOWEL SOUNDS ACTIVE TO ALL OSMAN, ABDOMINAL BINDER IN PLACE. NG TUBE TO RIGHT NARE. FAMILY AT BEDSIDE. BED LOW, CALL LIGHT IN REACH, NO OTHER NEEDS AT THIS TIME.
--- NOTE | 2019-07-21 11:15 | NUR ---
FLEET ENEMA ADMINISTERED, PT TOLERATED WELL. PT HAD SMALL FORMED BM.
[2019-07-21 12:47] VITALS: BP 165/57
--- NOTE | 2019-07-21 13:22 | HP ---
PATIENT: CHRISTIAN GARCIAS MEDICAL RECORD: [id number] ACCOUNT: [id number] LOCATION:[id number] : [birth year] ADMISSION DATE: 07/19/19 PCP: ANTHONY FARR MD HISTORY AND PHYSICAL EXAMINATION DATE OF ADMISSION: 07/19/2019 CHIEF COMPLAINT: Abdominal pain, nausea, vomiting, diarrhea times 4 days. HISTORY OF PRESENT ILLNESS: This is an 84-year-old female with history of coronary artery disease, hypertension, who presented with nausea, vomiting, diarrhea for 4 days. She usually has problems with constipation due to opioid use for her severe arthritis pain started suddenly. She was brought to the ER, where a CT of the abdomen and pelvis shows small-bowel obstruction with incarcerated hernia and a ventral hernia. She has had these ventral hernia for many years after a previous open midline cholecystectomy. In the ED, they were able to reduce the large ventral hernia and she reported improved symptoms after that. An NG tube was placed and she was admitted for further evaluation. PAST MEDICAL AND SURGICAL HISTORY: Coronary artery disease, arthritis, hypertension, high cholesterol, lumbar canal stenosis, and glaucoma. PAST SURGICAL HISTORY: Cholecystectomy, hysterectomy, coronary stents, and right knee arthroplasty. ALLERGIES: NOTED TO IRBESARTAN, DULOXETINE, AND GABAPENTIN. HOME MEDICATIONS: Include Zetia 10 mg once a day, fish oil 2 pills daily, isosorbide mononitrate 30 mg once a day, irbesartan 300 mg a day, Bumex 1 mg daily p.r.n. edema, Plavix 75 mg a day, latanoprost 0.005% eyedrops OU at bedtime, and aspirin 81 mg once a day. FAMILY HISTORY: Noncontributory. SOCIAL HISTORY: She is and retired. HABITS: No tobacco, alcohol, or drugs. PHYSICAL EXAMINATION: VITAL SIGNS: Temperature 98.4, pulse 79, respirations 20, blood pressure 135/48, O2 sat 96%. NG tube is in place. GENERAL: She is awake and alert, does not appear in distress at this time. HEENT: Unremarkable. NECK: Supple. HEART: Regular rate and rhythm. LUNGS: Fairly clear. ABDOMEN: Soft. She has ventral hernia that has been reduced in the midline. EXTREMITIES: Trace edema. LABORATORY DATA: CBC showed a white count of 8000, hemoglobin 11.8, hematocrit 35.3. Basic metabolic panel is normal. Liver functions are normal. Albumin is 2.8, amylase 18, lipase 46. CT abdomen and pelvis with contrast shows findings compatible with small-bowel obstruction with transition point within a large ventral hernia. HISTORY AND PHYSICAL [id number] CHRISTIAN GARCIAS ASSESSMENT: 1. Reducible large ventral hernia. 2. Nausea, vomiting, and diarrhea. PLAN: NG tube has been placed. General surgery has been consulted. There is a chance for surgery. Cardiology will need to be consulted. Other tests or procedures as warranted. TRANSINT:[id number] Voice Confirmation ID: [id number] DOCUMENT ID: [id number] ANTHONY FARR MD at 1322 CC: [id number] DICTATION DATE: 07/21/199 ROLL ON WORKER: 07/21/19 0118 ADM IN [facility] [address] [place] [address]
[2019-07-21 17:32] VITALS: BP 171/45
--- NOTE | 2019-07-21 19:00 | NUR ---
BEDSIDE REPORT RECEIVED AND CARE OF PT ASSUMED. PT LYING IN LOW JOLLEY'S POSITION. IV TO LEFT FA PATENT WITH NS INFUSING AT 75 ML/HR. NG TUBE TO RIGHT NARE CONNECTED TO LIS WITH BROWN THICK LIQUID IN COLLECTION CANNISTER. DAUGHTER IS AT BEDSIDE.
--- NOTE | 2019-07-21 20:00 | NUR ---
HS MEDICATIONS GIVEN. DAUGHTER IS AT BEDSIDE.
[2019-07-21 20:22] VITALS: BP 144/43
--- NOTE | 2019-07-21 21:03 | NUR ---
PT C/O SORE THROAT, EARACHE AND PRODUCTIVE COUGH. GAVE MORPHINE 4 MG IVP AND ZOFRAN 4 MG IVP PER PRN ORDERS. DAUGHTER GAVE HER COUGH DROPS TO SUCK ON AND I GAVE HER A FEW ICE CHIPS FOR THROAT. WILL CONTINUE TO MONITOR CLOSELY.
[2019-07-22 00:03] VITALS: BP 162/61
--- NOTE | 2019-07-22 02:58 | NUR ---
ASSISTED UP TO BSC TO VOID.
[2019-07-22 04:39] VITALS: BP 164/51
--- NOTE | 2019-07-22 07:00 | NUR ---
AWAKENS INT.PATIENT IS WITHOUT SIGNS OF DISTRESS. FAMILY AT BEDSIDE.MONITOR FOR NEEDS.CALL LIGHT IN REACH.
--- NOTE | 2019-07-22 08:00 | NUR ---
ASSESSMENT PER FLOW SHEET. PT IS WITHOUT DISTRESS.ABDOMINAL BINDER IN PLACE. PT IS WITHOUT PAIN AT PRESENT.FAMILY AT BEDSIDE.MONITOR FOR NEEDS.FALL PREVENTION IN PLACE
[2019-07-22 08:49] VITALS: BP 131/42
--- NOTE | 2019-07-22 10:30 | NUR ---
IV LEFT FOREARM LEAKING.DCD WITH CATH TIP INTACT. IV RESITED TO RIGHT FOREARM X1 STICK USING ASEPTIC TECH,20G.
[2019-07-22 10:37] LABS: ANION GAP 11.2 mmol/L (8-16); CALCIUM 8.3 mg/dL (8.5-10.1); CARBON DIOXIDE 26.6 mmol/L (21.0-32.0); CREATININE - SERUM 0.8 mg/dL (0.6-1.3); POTASSIUM - SERUM 3.8 mmol/L (3.5-5.1)
[2019-07-22 10:56] LABS: BASOPHILS 0.4 % (0-2); HEMATOCRIT 36.9 % (36.0-48.0); HEMOGLOBIN 12.2 g/dL (12-16); IMMATURE GRANULOCYTES 0.4 % (0-5); LYMPHOCYTES 10.4 % (15-50); MCHC 33.1 g/dL (31.0-37.0); MCV 93.7 fL (80.0-100.0); MEAN PLATELET VOLUME 9.3 fL (7.4-10.4); MONOCYTES 8.7 % (2-11); NEUTROPHILS 78.1 % (40-80); PLATELET COUNT 253 10x3/uL (130-400); RBC 3.94 10x6/uL (4.00-5.40); WBC 11.1 10x3/uL (4.8-10.8)
--- NOTE | 2019-07-22 12:17 | NUR ---
SBFT IN PROGRESS.PT NGT REMAINS CLAMPED. PT IS WITHOUT NAUSEA OR SIGNS OF PAIN.
[2019-07-22 13:43] VITALS: BP 140/50
--- NOTE | 2019-07-22 13:48 | NUR ---
VERY LARGE DARK BROWN WATERY STOOL. PATIENT UP TO BSC AND GOING MORE. BED CHANGED. PT WANTS TO SIT FOR A WHILE. NGT TO LIWS. SBFT COMPLETE PER DARRIN IN XRAY.
--- NOTE | 2019-07-22 14:34 | NUR ---
MULTIPLE STOOLS WITH SOME FORMED PIECES IN LIQUID.
[2019-07-22 16:16] VITALS: BP 166/45
--- NOTE | 2019-07-22 18:46 | NUR ---
MULTIPLE LARGE LIQUID STOOLS WITH SOME SOLIDS MIXED, BROWN IN COLOR.MINIMAL LIGHT YELLOW /GREEN DRAINAGE IN NGT CANISTER APROX 75CC. HAS HAD NO NAUSEA TODAY.SHE IS WANTING NGT OUT.THE ONLY COMPLAINT AT THIS TIME IS A SORE THROAT AND SAYS HER EAR ACHES A LITTLE.CONT PLAN OF CARE
[2019-07-22 20:00] VITALS: BP 172/60
--- NOTE | 2019-07-22 20:00 | NUR ---
PATIENT SITTING UP IN BED. NG TUBE IN PATIENTTS RIGHT HERNANDEZ. IV TO R WRIST NS @75, NO REDNESS OR SWELLING. PATIENT STATES THAT HER THROAT HURTS, BUT HAS NO OTHER NEEDS AT THIS TIME. BED ALARM ON. CALL LIGHT AND BEDSIDE TABLE WITHIN REACH.
[2019-07-23 04:00] VITALS: BP 161/75
--- NOTE | 2019-07-23 07:30 | NUR ---
ALERT AND ORIENTED. LUNGS CLEAR BILATERALLY. HEART SOUNDS S1 AND S2 HEARD IN ALL OSMAN. BOWEL SOUNDS ACTIVE X 4. NG TUBE PATENT TO RIGHT NARE. IV TO RIGHT WRIST PATENT WITHOUT REDNESS. TELEMETRY IN PLACE SHOWING 91 NORMAL SINUS ON MONITOR. BED LOW. FALL PRECAUTIONS IN PLACE. CALL GREGORY AND PERSONAL ITEMS IN REACH. WILL CONTINUE TO MONITOR.
[2019-07-23 08:01] VITALS: BP 168/64
--- NOTE | 2019-07-23 08:02 | NUR ---
PATIENT BP 168/72 MANUALLY. STATES NORMALLY TAKES BP MEDICATION BUT HOME MEDS NOT ON MAR. WILL SPEAK WITH MD TODAY.
--- NOTE | 2019-07-23 08:17 | NUR ---
NG TUBE REMOVED PER ORDER. 100ML NOTED TO CANISTER. SON AT BEDSIDE. CLEAR LIQUID TRAY GIVEN. EDUCATION PROVIDED TO TAKE SIPS AND TAKE BREAKS BETWEEN TO NOT UPSET STOMACH. DENIES FURTHER NEEDS. WILL CONTINUE TO MONITOR.
[2019-07-23] MEDS ORDERED: PLAVIX75 MG PO (11:29)
[2019-07-23] MEDS ORDERED: BUMETANIDE0.5 MG PO (11:30)
--- NOTE | 2019-07-23 11:42 | NUR ---
HIGH RISK / IMPAIRED SKIN INTEGRITY -TURN/REPOSITION Q 2 HOURS (HOURLY REPOSITIONING IF UP IN CHAIR -FLOAT HEELS OFF MATTRESS/PILLOWS -DAILY AND NEEDED PERSONAL CARE, USING CALMOSEPTINE CREAM IF REDNESS IS NOTED DUE TO INCONTINENCE/MOISTURE -SKIN ASSESSMENT Q SHIFT -CONSULT WOUND CARE IF NON-BLANCHABLE REDNESS OVER BONY PROMINENCES IS NOTED
[2019-07-23 12:43] VITALS: BP 176/57
--- NOTE | 2019-07-23 13:27 | NUR ---
Nutrition follow-up: NGT removed today and diet advanced to regular soft as tolerated Labs reviewed Wt: 201# +bm RDN following.
--- NOTE | 2019-07-23 14:53 | MORECARE ---
CASE MANAGEMENT DISCHARGE SUMMARY PATIENT: CHRISTIAN GARCIAS MAY UNIT: [id number] ADM DATE: 07/19/19 AGE: 84 : 34 SEX: F ROOM/BED: D.2226 AUTHOR: JAMES STEVENSON PHYSICIAN: REFERRING PHYSICIAN: ANTHONY FARR MD DATE OF SERVICE: 07/23/19 Discharge Plan Patient Name: CHRISTIAN GARCIAS [facility] [facility] 1935 Planned Disposition: Home with Home Health Anticipated Discharge Date: Discharge Date: Expected LOS: Initial Reviewer: [email or web address] Initial Review Date: 07/20/2019 Generated: 07/23/19 3:52 pm Comments DCP- Discharge Planning Updated by [email or web address]: Sindy Fischer on 07/23/19 1:[address] Again attempted to meet with patient, grandson states she just fell asleep and to return at a later time. DCP- Discharge Planning Updated by [id number]: Sindy Fischer on 07/20/19 3:[address] CM met with patient to discuss discharge planning. She states she is not feeling well and would like me to return at a later time. CM will continue to follow and assist with discharge planning/needs. Last DP export: 07/20/19 3:35 Patient Name: CHRISTIAN GARCIAS Page [id number] at 1453 All edits/amendments must be made on the electronic document DICTATION DATE: 07/23/191451 GROMMET WORKER: FLACA 07/23/191451 RPT#: [id number] DC DATE: STATUS: ADM IN [facility] [address] [place] [address] END OF REPORT
--- NOTE | 2019-07-23 15:20 | NUR ---
RESTING IN BED. DENIES NEEDS. WILL CONTINUE TO MONITOR.
--- NOTE | 2019-07-23 19:07 | NUR ---
PATIENT RESTING IN BED WITH NO S/S OF DISTRESS. GUEST AT BEDSIDE. PATIENT DENIES NEEDS AT THIS TIME. BED IN LOWEST POSITION, CALL LIGHT WITHIN REACH, AND BED ALARM ON. ENCOURAGED THE PATIENT TO CALL IF SHE HAS NEEDS. WILL CONTINUE TO MONITOR.
[2019-07-23 20:00] VITALS: BP 173/65
--- NOTE | 2019-07-23 20:10 | NUR ---
CLEANED PATIENT UP AFTER BM. PARTIAL LINEN CHANGE. PATIENT REQUESTED PAIN MEDS. BED IN LOWEST POSITION AND CALL LIGHT WITHIN REACH. WILL ADMINISTER PAIN MEDS PER ORDERS
[2019-07-24] VITALS: BP 140/79
[2019-07-24 04:00] VITALS: BP 143/56
--- NOTE | 2019-07-24 08:00 | NUR ---
ASSESSMENT PER FLOW SHEET. PT IS WITHOUT DISTRESS.MONITOR FOR NEEDS.
[2019-07-24 08:45] VITALS: BP 170/63
[2019-07-24 13:07] VITALS: BP 150/49
--- NOTE | 2019-07-24 13:57 | MORECARE ---
CASE MANAGEMENT DISCHARGE SUMMARY PATIENT: CHRISTIAN GARCIAS MAY UNIT: [id number] ADM DATE: 07/19/19 AGE: 84 : 34 SEX: F ROOM/BED: D.2226 AUTHOR: JAMES STEVENSON PHYSICIAN: REFERRING PHYSICIAN: ANTHONY FARR MD DATE OF SERVICE: 07/24/19 Discharge Plan Patient Name: CHRISTIAN GARCIAS Facility: [facility]:[place] : 1935 Planned Disposition: Home with Home Health Anticipated Discharge Date: Discharge Date: Expected LOS: Initial Reviewer: [email or web address] Initial Review Date: 07/20/2019 Generated: 07/24/19 2:57 pm Comments DCP- Discharge Planning Updated by [email or web address]: Nadiya Ernandez on 07/24/19 12:[address] MET WITH PATIENT AND SON TO ASSESS DISCHARGE NEEDS. PATIENT LIVES WITH HER SON AND STATED THAT SHE FEELS SAFE TO DISHCARGE HOME TODAY. IMM SERVED AND EXPLAINED. SHE IS CURRENT WITH [facility]. SHE HAS AN ELECTRIC WHEELCHAIR, WALKER, SHOWER CHAIR AT HOME. HER SON IS AT BEDSIDE AND I WILL CONTACT BECCA TO LET THEM KNOW SHE IS BEING DISCHARGED DCP- Discharge Planning Updated by [email or web address]: Sindy Fischer on 07/23/19 1:[address] Again attempted to meet with patient, grandson states she just fell asleep and to return at a later time. DCP- Discharge Planning Updated by [email or web address]: Sindy Fischer on 07/20/19 3:[address] CM met with patient to discuss discharge planning. She states she is not feeling well and would like me to return at a later time. CM will continue to follow and assist with discharge planning/needs. External Providers External Provider: [facility] Next Contact Date: Service Request Date: Service Type: Resolution: Reviewer: Comments: Coverage Notice Reviewer: [email or web address] - Nadiya Ernandez Notice Issued Date-Time: 07/24/2019 13:45 Notice Type: Patient Choice Letter Notice Delivered To: Patient Relationship to Patient: Money Market Clerk Name: Delivery Method: HAND - Hand Delivered Francine Days: Prior Verbal Notification: Recipient Understood Notice: Yes Recipient Signature: Yes Med Rec Note Co-signed by Attending: Coverage Notice Comment: mulu with [facility] Reviewer: [email or web address] - Nadiya Ernandez Notice Issued Date-Time: 07/24/2019 13:45 Notice Type: IM Discharge Notice Notice Delivered To: Patient Relationship to Patient: Money Market Clerk Name: Delivery Method: HAND - Hand Delivered Francine Days: Prior Verbal Notification: Recipient Understood Notice: Yes Recipient Signature: Yes Med Rec Note Co-signed by Attending: Coverage Notice Comment: Last DP export: 07/23/19 1:53 Patient Name: CHRISTIAN GARCIAS Page [id number] at 1357 All edits/amendments must be made on the electronic document DICTATION DATE: 07/24/19 1356 EQUIPMENT SALES SPECIALIST: FLACA 07/24/19 1356 RPT#: [id number] DC DATE: STATUS: ADM IN [facility] [address] [place] [address] END OF REPORT
--- NOTE | 2019-07-24 18:26 | NUR ---
IV DCD WITH CATH TIP INTACT. DISCHARGE INSTRUCTIONS,STATES UNDERSTANDING.WAITING ON FAMILY TO COME FOR RIDE HOME
--- NOTE | 2019-08-03 14:46 | MORECARE ---
CASE MANAGEMENT DISCHARGE SUMMARY PATIENT: CHRISTIAN GARCIAS MAY UNIT: [id number] ADM DATE: 07/19/19 AGE: 84 : 34 SEX: F ROOM/BED: D.2226 AUTHOR: JAMES STEVENSON PHYSICIAN: REFERRING PHYSICIAN: ANTHONY FARR MD DATE OF SERVICE: 08/03/19 Discharge Plan Patient Name: CHRISTIAN GARCIAS Facility: [facility]:[place] : 1935 Planned Disposition: Home with Home Health Anticipated Discharge Date: Discharge Date: 07/24/2019 Expected LOS: 0 Initial Reviewer: [id number] Initial Review Date: 07/20/2019 Generated: 08/03/19 3:46 pm Comments DCP- Discharge Planning Updated by [email or web address]: Nadiya Ernandez on 07/24/19 12:[address] MET WITH PATIENT AND SON TO ASSESS DISCHARGE NEEDS. PATIENT LIVES WITH HER SON AND STATED THAT SHE FEELS SAFE TO DISHCARGE HOME TODAY. IMM SERVED AND EXPLAINED. SHE IS CURRENT WITH [employer] SHE HAS AN ELECTRIC WHEELCHAIR, WALKER, SHOWER CHAIR AT HOME. HER SON IS AT BEDSIDE AND I WILL CONTACT [facility] TO LET THEM KNOW SHE IS BEING DISCHARGED DCP- Discharge Planning Updated by [email or web address]: Sindy Fischer on 07/23/19 1:[address] Again attempted to meet with patient, grandson states she just fell asleep and to return at a later time. DCP- Discharge Planning Updated by [email or web address]: Sindy Fischer on 07/20/19 3:[address] CM met with patient to discuss discharge planning. She states she is not feeling well and would like me to return at a later time. CM will continue to follow and assist with discharge planning/needs. Coverage Notice Reviewer: [id number] Gem Ernandez Notice Issued Date-Time: 07/24/2019 13:45 Notice Type: Patient Choice Letter Notice Delivered To: Patient Relationship to Patient: Refining Engineer Name: Delivery Method: HAND - Hand Delivered Francine Days: Prior Verbal Notification: Recipient Understood Notice: Yes Recipient Signature: Yes Med Rec Note Co-signed by Attending: Coverage Notice Comment: mulu with santiago Reviewer: [email or web address] Gem Ernandez Notice Issued Date-Time: 07/24/2019 13:45 Notice Type: IM Discharge Notice Notice Delivered To: Patient Relationship to Patient: Refining Engineer Name: Delivery Method: HAND - Hand Delivered Francine Days: Prior Verbal Notification: Recipient Understood Notice: Yes Recipient Signature: Yes Med Rec Note Co-signed by Attending: Coverage Notice Comment: Last DP export: 07/24/19 12:57 Patient Name: CHRISTIAN GARICAS Page [id number] at 1446 All edits/amendments must be made on the electronic document DICTATION DATE: 08/03/19 1446 SHOP TECHNICIAN: FLACA 08/03/19 1446 RPT#: [id number] DC DATE:07/24/19 STATUS: DIS IN [facility] [address] [place] [address] END OF REPORT
--- NOTE | 2019-08-06 11:12 | CN ---
PATIENT NAME:CHRISTIAN CARDENAS MEDICAL RECORD: [id number] : 33 LOCATION:D.MS [address] ADMIT DATE: 07/19/19 ACCOUNT: [id number] CONSULTING PHYSICIAN: EDDIE VERMA MD REFERRING PHYSICIAN: ANTHONY FARR MD DATE OF CONSULTATION: 07/20/2019 DIAGNOSES: 1. Preoperative evaluation. 2. Coronary artery disease. 3. Status post previous percutaneous transluminal coronary angioplasty stent. 4. Hypertension. 5. Hyperlipidemia. 6. Plavix anticoagulation. HISTORY OF PRESENT ILLNESS: Mrs. Cardenas presents with noncardiac issues, GI issues, small-bowel obstruction, is being considered for surgery. She does have a cardiac history. Last cardiac stenting was done in November 2018. She has been on Plavix since she had a cardiac catheterization on 05/2019, which showed wide patency of the previously placed stent. She has had no significant anginal symptomatology. No EKG changes or dysrhythmias since being admitted. Her Plavix has been on hold. PHYSICAL EXAMINATION: CONSTITUTIONAL/GENERAL APPEARANCE: Well nourished, well developed, appears stated age. EYES: Lids and conjunctivae noninjected. No discharge. No pallor. ENT: Lips within normal limit. No cyanosis. No pallor. NECK: Carotid arteries, bilateral normal upstroke. No bruits. No thrills. No jugular venous pressure or distention. CERVICAL LYMPH NODES: Nontender. Nonenlarged. THYROID: Not enlarged. No nodules. CARDIOVASCULAR: Precordial exam, nondisplaced. No heaves or pericardial thrills. Rate and rhythm, regular. Heart sounds, normal S1, normal S2. No S3, no gallop, no rub. Systolic murmur, not heard. Diastolic murmur, not heard. RESPIRATORY: Respiratory effort, unlabored. Normal curvature. No thoracic deformity. No chest wall tenderness. Percussion, resonant. Auscultation, clear. No wheezes, no rales, no rhonchi. ABDOMEN: Soft, nondistended, nontender. No abdominal pain, no vomiting and normal appetite. MUSCULOSKELETAL: No joint tenderness, normal gait, normal tone. SKIN: Warm and dry. OVERALL IMPRESSION: Stable from a cardiac standpoint. Can stop the aspirin, Plavix and leave it off at this time as she is greater than 6 months out from her last percutaneous transluminal coronary angioplasty stent and the last cardiac catheterization showed wide patency of the previously placed stents. No other cardiac workup or treatment is necessary preoperatively, proceed with surgery at low cardiac risk. TRANSINT:[id number] Voice Confirmation ID: [id number] DOCUMENT ID: [id number] CONSULT REPORT [id number] CHRISTIAN CARDENAS JEFFREY MD at 1112 CC: [id number] DICTATION DATE: 07/20/19 1203 CAMERA MECHANIC: 07/20/19 1617 DIS IN 07/24/19 [id number] [place] [address]
== END 2019-07-24 20:00 | disposition home health service (06) | DRG 394 ==
LOC: D.ER 19:22 → D.MS 23:17
PROVIDERS: Family Medicine; Surgery; ADMIT Family Medicine; ATTEND Family Medicine
DX: K43.6 Other and unspecified ventral hernia with obstruction, without gangrene (principal); E87.1 Hypo-osmolality and hyponatremia; Z68.41 Body mass index [BMI] 40.0-44.9, adult; I25.10 Atherosclerotic heart disease of native coronary artery without angina pectoris; I10 Essential (primary) hypertension; Z79.01 Long term (current) use of anticoagulants; E78.5 Hyperlipidemia, unspecified; M19.90 Unspecified osteoarthritis, unspecified site; E66.9 Obesity, unspecified

== ENCOUNTER → 2020-04-18 13:34 | Outpatient (CLI) | payer MEDICARE, BC ==
[2019-07-20 13:17] VITALS: BMI 40.6
[~2020-04-18 13:34] MED LIST changes: +BUMETANIDE0.5 MG PO; +NORVASC5 MG PO
== END | disposition home or self-care (01) ==
LOC: D.US 13:34
PROVIDERS: ATTEND Family Medicine
DX: R31.9 Hematuria, unspecified (principal)

== ENCOUNTER 2020-12-17 01:06 | Inpatient (IN) | payer MEDICARE, BC ==
[~2020-12-17] VITALS: Ht 149.9 cm; Wt 88.0 kg
[~2020-12-17 01:06] MED LIST changes: +ELIQUIS5 MG PO; +MATZIM LA360 MG PO; +MIRALAX17 GM PO; +NITROSTAT0.4 MG SL; +ZOFRAN4 MG PO
[2020-12-17 02:03] LABS: BASOPHILS 0.9 % (0-2); EOSINOPHILS 0.2 % (0-7); HEMOGLOBIN 15.3 g/dL (12-16); LYMPHOCYTES 2.9 % (15-50); MCH 30.1 pg (26.0-34.0); MCHC 33.3 g/dL (31.0-37.0); MCV 90.4 fL (80.0-100.0); MEAN PLATELET VOLUME 7.8 fL (7.4-10.4); MONOCYTES 3.5 % (2-11); NEUTROPHILS 92.5 % (40-80); RBC 5.09 10x6/uL (4.00-5.40); RDW 13.4 % (11.5-14.5); WBC 18.1 10x3/uL (4.8-10.8)
[2020-12-17 02:05] LABS: ANION GAP 17.1 mmol/L (8-16); CALCIUM 8.9 mg/dL (8.5-10.1); CARBON DIOXIDE 25.1 mmol/L (21.0-32.0); CREATININE - SERUM 1.3 mg/dL (0.6-1.3); POTASSIUM - SERUM 4.2 mmol/L (3.5-5.1)
[2020-12-17 02:06] LABS: PLATELET COUNT 285 10x3/uL (130-400)
[2020-12-17 02:11] LABS: ALBUMIN 3.9 g/dL (3.4-5.0); BILIRUBIN - TOTAL 0.49 mg/dL (0.2-1.3); PROTEIN - SERUM 7.7 g/dL (6.4-8.2)
[2020-12-17 04:00] VITALS: BP 144/88
[2020-12-17 04:30] VITALS: BP 141/74
--- NOTE | 2020-12-17 07:27 | NUR ---
PATIENT TO UNIT AT THIS TIME. FAMILY AT BEDSIDE. FREE FROM SIGNS OF DISTRESS. BED LOW POSITION, CALL LIGHT IN REACH. WILL CONTINUE TO MONITOR.
[2020-12-17 07:44] VITALS: BP 152/90; BMI 39.2
--- NOTE | 2020-12-17 09:41 | NUR ---
TY PLACED PER ORDERS. 16 FR.
[2020-12-17 11:57] LABS: BILIRUBIN NEGATIVE (NEGATIVE); KETONE NEGATIVE (NEGATIVE); NITRITE NEGATIVE (NEGATIVE); UROBILINOGEN NORMAL mg/dL (< 2)
[2020-12-17 12:00] LABS: BACTERIA FEW HPF (NONE SEEN); SQUAMOUS EPITHELIAL 0-5 HPF (0-4); WHITE CELLS - URINE RARE HPF (0-4)
[2020-12-17 12:58] VITALS: BP 125/74
[2020-12-17 13:47] VITALS: Ht 149.9 cm; Wt 88.0 kg
[2020-12-17 17:47] VITALS: BP 142/70
[2020-12-17 19:45] VITALS: BP 151/51
--- NOTE | 2020-12-18 03:52 | NUR ---
PATIENT HAD SON AT BEDSIDE AT SHIFT CHANGE, SHE GOT UP WITH 2 PERSON ASSIST TO THE BEDSIDE COMMODE AND HAD A GUM BALL SIZE BOWEL MOVEMENT VERY HARD. SHE IS CURRENTLY RESTING IN BED WITH HER EYES CLOSED.
[2020-12-18 04:00] VITALS: BP 132/81
[2020-12-18 05:56] LABS: BASOPHILS 0.4 % (0-2); HEMATOCRIT 39.2 % (36.0-48.0); HEMOGLOBIN 13.1 g/dL (12-16); LYMPHOCYTES 16.7 % (15-50); MCH 30.1 pg (26.0-34.0); MCHC 33.3 g/dL (31.0-37.0); MCV 90.5 fL (80.0-100.0); MONOCYTES 6.9 % (2-11); PLATELET COUNT 254 10x3/uL (130-400); RBC 4.33 10x6/uL (4.00-5.40); RDW 13.2 % (11.5-14.5)
[2020-12-18 06:05] LABS: WBC 9.4 10x3/uL (4.8-10.8)
[2020-12-18 06:22] LABS: INR 1.42 (0.85-1.17); PROTIME 16.1 SECONDS (11.6-15.0)
[2020-12-18 06:25] LABS: ANION GAP 10.9 mmol/L (8-16); CALCIUM 8.3 mg/dL (8.5-10.1); CREATININE - SERUM 1.1 mg/dL (0.6-1.3); PHOSPHOROUS 3.4 mg/dL (2.5-4.9); POTASSIUM - SERUM 3.9 mmol/L (3.5-5.1)
--- NOTE | 2020-12-18 07:44 | NUR ---
PT LAYING IN BED RESTING WITH EYES CLOSED, RECIEVED REPORT FROM NIGHT RN
--- NOTE | 2020-12-18 08:24 | NUR ---
PT SITTING UP IN BED, MEDS GIVEN, ASSESSMENT COMPLETE, FAMILY AT BEDSIDE
[2020-12-18 08:25] VITALS: BP 133/68
--- NOTE | 2020-12-18 08:49 | HP ---
PATIENT: CHRISTIAN GARCIAS MEDICAL RECORD: [id number] ACCOUNT: [id number] LOCATION:D.MS [address] : 33 ADMISSION DATE: 12/17/20 PCP: No PCP HISTORY AND PHYSICAL EXAMINATION DATE OF ADMISSION: 12/17/2020 CHIEF COMPLAINT: Abdominal pain. HISTORY OF PRESENT ILLNESS: This is an 85-year-old female who has a known history of ventral hernia and it is sometimes had a protrusion from it, and she and her grandson are usually able to reduce the hernia; however, she came in after she had pain for several hours and they were unable to reduce it at home. She had a little nausea and vomiting. In the ER, her white count was 18,000. Rest of her lab was fairly normal. CT of the abdomen and pelvis showed a large ventral hernia, containing loops of large and small bowel with air-fluid levels proximally to the hernia deficit. She was admitted and Dr. Parker was consulted. PAST MEDICAL HISTORY: Coronary artery disease, osteoarthritis, spinal stenosis, hyperlipidemia, glaucoma, ventral hernia, hypertension, chronic anticoagulation. PAST SURGICAL HISTORY: Hysterectomy, total knee arthroplasty, appendectomy, cholecystectomy, eye surgery, coronary stents. ALLERGIES: REPORTEDLY TO GABAPENTIN AND DULOXETINE. HABITS: Former smoker. No alcohol or drugs. SOCIAL HISTORY: She is and retired. HOME MEDICATIONS: Include irbesartan 300 mg once a day, [place] 10 one every 6 hours as needed for pain, ezetimibe 10 mg once a day, Eliquis 5 mg twice a day, Plavix 75 mg once a day, latanoprost 0.005% eyedrops one drop in both eyes at bedtime. She is taking Lasix 20 mg as needed for swelling, Zofran if needed. Oxybutynin 5 mg twice a day for overactive bladder and MiraLax p.r.n. constipation. REVIEW OF SYSTEMS: GENERAL: No major weight changes. HEENT: No significant problems there. RESPIRATORY: No diagnosis of emphysema or asthma. CARDIAC: She has a history of coronary artery disease with stents. She is on chronic anticoagulation therapy. GASTROINTESTINAL: She has had heartburn. GENITOURINARY: Occasional urinary infections. MUSCULOSKELETAL: She has severe back pain with spinal stenosis on hydrocodone. She has arthritis. NEUROLOGIC: No seizures. No migraines. PSYCHIATRIC: No significant depression or melancholia. PHYSICAL EXAMINATION: VITAL SIGNS: Temperature 97.9, pulse 121, respirations 18, blood pressure 152/90, O2 sats 92%. Currently, she is in Trendelenburg position in bed, accompanied by her daughter and grandson. HISTORY AND PHYSICAL [id number] CHRISTIAN GARCIAS HEENT: Grossly within normal limits. NECK: Supple. HEART: Tachycardia. LUNGS: Fairly clear. ABDOMEN: Soft, mild tenderness now. She has evidence of ventral hernia and it has been reduced by Dr. Parker earlier this morning. EXTREMITIES: No edema. LABORATORY DATA: CBC with a white count of 18,100, hemoglobin 15.3, hematocrit 46.0. Basic metabolic panel: Sodium 136, potassium 4.2, chloride 98, CO2 25.1, BUN 24, creatinine 1.3, glucose 152, calcium 8.9. Liver functions are all normal. Lipase is normal at 38. DIAGNOSTIC DATA: CT of the abdomen and pelvis shows large ventral hernia containing loops of large and small bowel and there is small-bowel obstruction noted. ASSESSMENT: 1. Small-bowel obstruction due to ventral hernias. 2. Hypertension. 3. Coronary artery disease, chronic atrial fibrillation. PLAN: Again, Dr. Parker has already seen the patient. He has reduced her hernia and she remains in Trendelenburg right now. We are trying to get her fit for a TRUS and hopefully will be able to go home. Dr. Parker said the patient is definitely not an ideal candidate for open incisional ventral wall hernia repair due to comorbidities and the significant size of the herniation. Family understands this. The patient understands this as well. She does not want surgery. We will have a clear liquid diet at this point. Other tests or procedures as warranted. TRANSINT:[id number] Voice Confirmation ID: [id number] DOCUMENT ID: [id number] ANTHONY FARR MD at 0849 CC: [id number] DICTATION DATE: 12/17/202342 INTERNAL MEDICINE DOCTOR: 12/18/207 ADM IN [facility] [address] [id number]
[2020-12-18 13:01] VITALS: BP 197/71
--- NOTE | 2020-12-18 13:41 | NUR ---
PT'S DAUGHTER CAME TO NURSE STATION FRUSTRATED THAT THE SERVICE LINE COORDINATOR HAD TOLD THEM THAT THE PT WAS SUPPOSE TO HAVE AN ENEMA LAST NIGHT AND THAT HER IV FLUIDS HAD NOT BEEN ON, DAUGHTER STATED SHE WAS ABOUT READY TO TAKE HER MOTHER HOME AND GIVE HER THE ENEMA HERSELF. INFORMED DAUGHTER I WOULD LOOK INTO THE NOTES AND PAST MEDICATION ODERS. MET WITH PT AND DAUGHTER IN PT ROOM, INFORMED THEM THAT THERE WAS NEVER AN ORDER FOR AN ENEMA AND THAT IT WAS NOT IN THE NOTES TO GIVE ONE, ONLY INTERVENTION THIS RN COULD FIND WERE WHAT WAS DONE TODAY. RE-DRESSED IV AND ADJUSTED CATHETER DUE TO PUMP CONSTANTLY BEEPING LINE OCCLUDED. INFORMED DAUGHTER IF IT DID NOT WORK WOULD NEED TO RELOCATE IV. DAUGHTER VERBALIZED UNDERSTANDING.
--- NOTE | 2020-12-18 14:51 | NUR ---
PIT FURNACE MELTER STATED THE AIDS HAD GOTTEN PT UP TO BEDSIDE COMMODE AND PT WAS ABLE TO PASS SOME STOOL, SAYS PT STATED SHE STILL FELT LIKE SHE NEEDED TO GO, AIDS SUGGESTED PT LAY ON LEFT SIDE TO PROMOTE BOWEL MOVEMENT, PT DID NOT COMPLY AND IS LAYING FLAT ON HER BACK, PT COMPLAINS OF ABD PAIN THAT WAS NOT RELIEVED WITH IV MORPHINE
[2020-12-18 17:31] VITALS: BP 159/56
--- NOTE | 2020-12-18 17:34 | NUR ---
SPOKE WITH DR MORA ABOUT PT AND FAMILY CONCERNS THAT PT'S BOWELS HAD NOT MOVED IN AN ACCEPTABLE AMOUNT OF TIME AND WERE FRUSTRATED THAT ENEMA WAS NEVER ORDERED. RECEIVED AND ORDER FOR PT TO HAVE A ONE TIME SOAP SUDZ ENEMA
--- NOTE | 2020-12-18 17:57 | NUR ---
SOAP SUDZ ENEMA ADMINISTERED, PT TOLERATED WELL, PLACED ON LEFT SIDE, NO BM AT THIS TIME
--- NOTE | 2020-12-18 18:21 | NUR ---
PATIENT HAD LARGE HARD BM ABOUT 8-10 BALLS THE SIZE OF GOLF BALLS AFTER SOAP SUDS ENEMA. PATIENT CHANGED AND REPOSITIONED. NAUSEA MEDS GIVEN. IV INTACT. FAMILY AT BEDSIDE. CALL LIGHT WITHIN REACH.
[2020-12-18 20:00] VITALS: BP 142/54
[2020-12-19] VITALS: BP 145/59; BP 15/59
[2020-12-19 04:00] VITALS: BP 95/65
--- NOTE | 2020-12-19 07:36 | NUR ---
RECEIVED REPORT FROM NIGHT RN, REPORTED PT HAD TWO MORE BOWEL MOVEMENTS LAST NIGHT, BLADDER TRAINING INITIATED FOR TY REMOVAL, PT LAYING IN BED RESTING WITH EYES CLOSED, IV IN PLACE, CALL LIGHT WITHIN REACH, NO SIGNS OF DISTRESS
[2020-12-19 08:15] VITALS: BP 114/73
--- NOTE | 2020-12-19 09:07 | NUR ---
REMOVED TY, 1200 OUT, TIP INTACT, IV REMOVED, TIP INTACT, PT TOLERATED WELL, AWAITING DISCHARGE PAPERWORK
--- NOTE | 2020-12-19 11:06 | NUR ---
DISCHARGE INSTRUCTIONS REVIEWED AND SIGNED WITH PT AND FAMILY, ALL QUESTIONS ANSWERED, PT VERBALIZED UNDERSTANDING, TELE MONITOR REMOVED, TRANSPORT CALLED FOR ASSISTANCE
--- NOTE | 2020-12-19 11:14 | NUR ---
PT LEAVING VIA WHEELCHAIR ASSISTED BY HOSPITAL STAFF, NO SIGNS OF DISTRESS, PT IN STABLE CONDITION
--- NOTE | 2020-12-19 11:19 | MORECARE ---
CASE MANAGEMENT DISCHARGE SUMMARY PATIENT: CHRISTIAN GARCIAS UNIT: [id number] ADM DATE: 12/17/20 AGE: 85 : 34 SEX: F ROOM/BED: D.2231 AUTHOR: JAMES STEVENSON PHYSICIAN: REFERRING PHYSICIAN: ANTHONY FARR MD DATE OF SERVICE: 12/19/20 Case Management Discharge Planning Summary COMMENTS ENTERED DATE: 12/19/20 11:15 CT COMMENT TYPE: Discharge Planning REVIEWER: Nadiya Ernandez cm sent the hh referral to [facility] ENTERED DATE: 12/19/20 11:15 CT COMMENT TYPE: Discharge Planning REVIEWER: Nadiya Ernandez CM met with patient, daughter and granddaughter to complete initial dc planning assessment. CM educated patient on the CM role and verbal consent given by patient to complete assessment. Patient lives at home and her adult son also lives with her. At discharge patient plans to return home and feels this is a safe discharge. CM discussed availability of home health, rehab services, and medical equipment. Her daughter stated that they think she wound benefit from home health and a home health aide if her insurance will cover it. CAREY with [facility] . She has an electric wheelchair, BSC, wheelchair, modified bed and closet, walk in shower with grab bars. Her daughter will be her ambulette driver home today and her granddaughter is the one who usually takes her to her MD appointments. Patient denied known discharge needs at this time. CM will continue to follow and will assist as needed with dc plans/needs. DCP REVIEW SUMMARY ANTICIPATED D/C DATE: EXPECTED LOS : CASE STATUS: DCP Initiated INITIAL REVIEW: 12/17/2020 INITIAL REVIEWER: Nadiya Ernandez FINAL DISCHARGE DISPOSITION: 06 : Discharged/Trans to Home Under Care of [facility] in Anticipation of Skilled Care FINAL REVIEWER: FINAL REVIEW DATE: [facility] Questions & Answers QUESTION: ANSWER : PATIENT: CHRISTIAN GARCIAS ENCOUNTER: [id number] MEDICAL RECORD#: [id number] ADMISSION DATE: 12/17/2020 DISCHARGE DATE: 12/19/2020 ATTENDING MD: ANTHONY TELLEZ DOB: AGE: 85 MARITAL STATUS: W DC PLAN ID: [id number] FACILITY: [facility] PRINTED ON: 12/19/20 11:19 CT All edits/amendments must be made on the electronic document DICTATION DATE: 12/19/201118 CASKET ASSEMBLER: FLACA 12/19/20 111 RPT#: [id number] DC DATE:12/19/20 STATUS: DIS IN [facility] [address] [place] [address] END OF REPORT
== END 2020-12-19 11:16 | disposition home health service (06) | DRG 394 ==
LOC: D.ER 01:06 → D.M2 05:26 → D.MS 05:26
PROVIDERS: Family Medicine; ADMIT Family Medicine; ATTEND Family Medicine
DX: K43.6 Other and unspecified ventral hernia with obstruction, without gangrene (principal); I13.0 Hypertensive heart and chronic kidney disease with heart failure and stage 1 through stage 4 chronic kidney disease, or unspecified chronic kidney disease; I25.10 Atherosclerotic heart disease of native coronary artery without angina pectoris; M19.90 Unspecified osteoarthritis, unspecified site; E78.5 Hyperlipidemia, unspecified; Z79.01 Long term (current) use of anticoagulants; I50.9 Heart failure, unspecified; N18.30 Chronic kidney disease, stage 3 unspecified

== ENCOUNTER → 2020-12-23 20:57 | Outpatient (CLI) | payer MEDICARE, BC ==
[2020-12-17 13:47] VITALS: BMI 39.2
[2020-12-24 11:01] LABS: BILIRUBIN NEGATIVE (NEGATIVE); KETONE NEGATIVE (NEGATIVE); NITRITE NEGATIVE (NEGATIVE)
[2020-12-24 11:03] LABS: BACTERIA MODERATE HPF (NONE SEEN); SQUAMOUS EPITHELIAL 0-5 HPF (0-4); WHITE CELLS - URINE RARE HPF (0-4)
== END | disposition home or self-care (01) ==
LOC: D.LABREF 20:57
PROVIDERS: ATTEND Family Medicine
DX: K43.6 Other and unspecified ventral hernia with obstruction, without gangrene (principal); I25.10 Atherosclerotic heart disease of native coronary artery without angina pectoris

== ENCOUNTER 2020-12-31 12:14 | Observation (INO) | payer MEDICARE, BC ==
[~2020-12-31] VITALS: Ht 152.4 cm; Wt 81.6 kg
[2020-12-31 12:52] LABS: BASOPHILS 0.9 % (0-2); EOSINOPHILS 1.9 % (0-7); HEMATOCRIT 39.3 % (36.0-48.0); HEMOGLOBIN 13.4 g/dL (12-16); LYMPHOCYTES 12.7 % (15-50); MCH 30.5 pg (26.0-34.0); MCV 89.5 fL (80.0-100.0); MEAN PLATELET VOLUME 7.7 fL (7.4-10.4); MONOCYTES 6.6 % (2-11); NEUTROPHILS 77.9 % (40-80); PLATELET COUNT 233 10x3/uL (130-400); RBC 4.39 10x6/uL (4.00-5.40); RDW 12.9 % (11.5-14.5); WBC 6.6 10x3/uL (4.8-10.8)
[2020-12-31 13:05] LABS: ANION GAP 10.3 mmol/L (8-16); CALCIUM 8.6 mg/dL (8.5-10.1); CARBON DIOXIDE 26.8 mmol/L (21.0-32.0); CREATININE - SERUM 1.1 mg/dL (0.6-1.3); POTASSIUM - SERUM 4.1 mmol/L (3.5-5.1)
[2020-12-31 13:18] LABS: ALBUMIN 3.4 g/dL (3.4-5.0); BILIRUBIN - TOTAL 0.46 mg/dL (0.2-1.3); MAGNESIUM - SERUM 2.6 mg/dL (1.8-2.4); PROTEIN - SERUM 6.6 g/dL (6.4-8.2)
[2020-12-31 13:22] LABS: TROPONIN-I 0.116 ng/mL (0.000-0.060)
[2020-12-31 13:34] LABS: APTT 32.8 SECONDS (22.8-39.4); INR 1.58 (0.85-1.17); PROTIME 17.5 SECONDS (11.6-15.0)
--- NOTE | 2020-12-31 19:31 | NUR ---
REPORT CALLED TO GIANA AT 1753, PT'S ROOM NOT READY THEY WILL CALL WHEN READY.
[2020-12-31 19:49] LABS: CKMB 1.5 U/L (0.0-3.6); CREATINE KINASE 59 UL (21-215)
[2020-12-31 19:52] LABS: TROPONIN-I 0.128 ng/mL (0.000-0.060)
[2021-01-01 01:55] LABS: CKMB 1.9 U/L (0.0-3.6); CREATINE KINASE 65 UL (21-215)
[2021-01-01 01:56] LABS: TROPONIN-I 0.137 ng/mL (0.000-0.060)
[2021-01-01 02:42] VITALS: BP 153/75; BMI 35.2
[2021-01-01 04:00] VITALS: BP 136/54
[2021-01-01 07:13] LABS: BASOPHILS 1.2 % (0-2); EOSINOPHILS 4.6 % (0-7); HEMATOCRIT 38.1 % (36.0-48.0); HEMOGLOBIN 12.8 g/dL (12-16); LYMPHOCYTES 24.7 % (15-50); MCH 30.5 pg (26.0-34.0); MCHC 33.6 g/dL (31.0-37.0); MCV 90.7 fL (80.0-100.0); MEAN PLATELET VOLUME 7.9 fL (7.4-10.4); MONOCYTES 9.8 % (2-11); NEUTROPHILS 59.7 % (40-80); PLATELET COUNT 225 10x3/uL (130-400); RDW 13.2 % (11.5-14.5); WBC 5.5 10x3/uL (4.8-10.8)
[2021-01-01 07:41] LABS: CALC OSMOLALITY 276 mosm/kg (275-300); CALCIUM 8.4 mg/dL (8.5-10.1); CARBON DIOXIDE 29.8 mmol/L (21.0-32.0); CHLORIDE - SERUM 104 mmol/L (98-107); CKMB 1.6 U/L (0.0-3.6); CREATINE KINASE 66 UL (21-215); GLUCOSE 77 mg/dL (74-106); POTASSIUM - SERUM 3.9 mmol/L (3.5-5.1); SODIUM 138 mmol/L (136-145); UREA NITROGEN 19 mg/dL (7-18); eGFR NON AFRICAN AMERICAN 56 mL/min (90-120)
[2021-01-01 07:42] LABS: TROPONIN-I 0.121 ng/mL (0.000-0.060)
--- NOTE | 2021-01-01 08:00 | NUR ---
Lying in bed, awake/alert/oriented, T/R self ad drake, cont of B/B with BSC with assist ad drake, denies pain/other discomfort at this time, call light/phone/water within reach, no s/s of acute distress observed.
[2021-01-01 12:25] VITALS: Ht 152.4 cm; Wt 81.6 kg
--- NOTE | 2021-01-01 13:03 | HP ---
PATIENT: CHRISTIAN GRACIAS MEDICAL RECORD: [id number] ACCOUNT: [id number] LOCATION:[address] : 33 ADMISSION DATE: 12/31/20 PCP: No PCP HISTORY AND PHYSICAL EXAMINATION DATE OF ADMISSION: 12/31/2020 CHIEF COMPLAINT: Weakness. HISTORY OF PRESENT ILLNESS: An 85-year-old female who was brought in for not feeling well, generalized weakness, malaise, some lower abdominal pain. She has had some constipation, but then had diarrhea most of yesterday, she got up and was feeling okay, then went back to bed this morning and her granddaughter arrived and found her "passed out" in the bed. The patient does not remember anything about it, she just feels weak and achy. She was recently admitted into the hospital with a large ventral hernia and an obstructed small bowel. This was reduced by Dr. Parker and she was placed in a truss. Since she has been home, she has had some constipation, some loose stool. She is not wearing the truss today. She states she took it off earlier in the day, but usually has been wearing it all the time. In the ER, CBC was okay. Basic metabolic panel was fairly normal. Magnesium a little high at 2.6, but troponin was elevated at 0.116. CT of the head showed no acute process, and an acute abdominal series showed no acute cardiopulmonary findings. There was nonspecific bowel gas pattern, mild to moderate fecal material in the colon. She is admitted for further evaluation. PAST MEDICAL HISTORY: She has hypertension, coronary artery disease, chronic atrial fibrillation on anticoagulation. She has a large ventral hernia. She has osteoarthritis, spinal stenosis, hyperlipidemia, and glaucoma. PAST SURGICAL HISTORY: Hysterectomy, total knee arthroplasty, appendectomy, cholecystectomy, cardiac stents and eye surgery. HOME MEDICATIONS: Include Plavix 75 mg once a day, Eliquis 5 mg twice a day, Zetia 10 mg once a day, diltiazem [place] 360 mg once a day, irbesartan 300 mg once a day, nitroglycerin 0.4 mg sublingual q.5 minutes times 3 p.r.n. chest pain, fish oil 2 tablets daily, [place] 10/325 one every 4 to 6 hours as needed for her chronic back pain, latanoprost drops 1 drop into the left eye at bedtime, MiraLax 1 packet daily, Zofran 4 mg p.o. q.6 hours p.r.n. nausea. ALLERGIES: REPORTEDLY TO GABAPENTIN AND DULOXETINE. HABITS: She is a former smoker. No alcohol or drugs. SOCIAL HISTORY: She is , retired. She lives with her grandson. REVIEW OF SYSTEMS: GENERAL: No major weight changes. HEENT: No particular sinus or allergy problems. RESPIRATORY: No known COPD or asthma. CARDIAC: She has chronic atrial fibrillation. She has had heart disease. She has stents. GASTROINTESTINAL: She has some heartburn. She has issues with a large ventral hernia that loops of bowel sometimes get caught up in. MUSCULOSKELETAL: She has arthritic aches and pains. She has chronic back pain HISTORY AND PHYSICAL [id number] CHRISTIAN GARCIAS from spinal stenosis and is on [place] for that. NEUROLOGIC: No migraines or seizures. PSYCHIATRIC: She has had some depression. PHYSICAL EXAMINATION: VITAL SIGNS: Today, temperature 97.2, pulse 97, respirations 16, blood pressure is 121/61, O2 sat 97%. Generally, she is now awake and alert. Her grandson is at bedside. She is in no distress. She remembers most of what happened today, but thinks she may have passed out. HEENT: Grossly within normal limits. NECK: Supple. No JVD or bruit. HEART: Irregularly irregular. LUNGS: Fairly clear. ABDOMEN: Obese, soft. She has a large ventral hernia. There is a little tenderness, more in the lower abdomen, more to the right. The pain is actually better with palpation. Bowel sounds are active. EXTREMITIES: No edema. LABORATORY DATA: CBC with a white count of 6600, hemoglobin 13.4, hematocrit 39.3. Sodium 136, potassium 4.1, chloride 103, CO2 of 20.8, BUN 25, creatinine 1.1, glucose 103. Calcium 8.6. Liver functions are all normal. INR 1.58. Magnesium a little elevated at 2.6. Troponin a little elevated at 0.116. Lipase 35. DIAGNOSTIC STUDIES: CT of the head shows no acute process. Acute abdominal series shows no acute cardiopulmonary process. There is nonspecific bowel gas pattern and mild to moderate fecal material in the colon. ASSESSMENT: 1. Elevated troponin. 2. General weakness. 3. Nausea and diarrhea. PLAN: We will monitor overnight. Repeat troponin. Cardiology will be consulted. Other tests or procedures as warranted. TRANSINT:[id number] Voice Confirmation ID: [id number] DOCUMENT ID: [id number] ANTHONY FARR MD at 1303 CC: [id number] DICTATION DATE: 12/31/202243 HOG ROOM SUPERVISOR: 01/01/21 0054 ADM IN [address] [place] [id number] [place] [id number]
[2021-01-01 13:35] VITALS: BP 118/46
[2021-01-01 20:21] VITALS: BP 112/54
[2021-01-01 23:51] VITALS: BP 117/65
--- NOTE | 2021-01-02 02:46 | NUR ---
REPORT RECEVIED. PT A&O, UP IN BED RESTING. NO S/S OF DISTRESS OBSERVED. RR EVEN & UNLABORED ON RA. CAF 92 ON MONITOR. IV TO L FA WITH NS AT 75CC/HR. BED LOCKED AND LOWERED. CL IN REACH. ASSESSMENT COMPLETE. WILL CONT POC.
--- NOTE | 2021-01-02 07:00 | NUR ---
Lying in bed, awake/alert/oriented, T/R self ad drake, cont of B/B with BSC per self ad drake, c/o aching ears rated 8/10, medicated as ordered (see MAR), call light/phone/water within reach, no s/s of acute distress observed.
[2021-01-02 09:00] VITALS: BP 141/69
[2021-01-02 09:01] LABS: BILIRUBIN NEGATIVE (NEGATIVE); KETONE NEGATIVE (NEGATIVE); NITRITE NEGATIVE (NEGATIVE); UROBILINOGEN NORMAL mg/dL (< 2); WHITE CELLS - URINE 0-5 HPF (0-4)
[2021-01-02 09:02] LABS: AMORPHOUS SEDIMENT FEW LPF (NONE SEEN); BACTERIA NONE SEEN HPF (NONE SEEN)
[2021-01-02] MEDS ORDERED: AMOXICILLIN875 MG PO (13:22)
--- NOTE | 2021-01-02 15:25 | NUR ---
Provided written/verbal discharge instructions/education to which pt voiced understanding, discontinued IV access/cardiac telemetry monitoring, no s/s of acute distress observed.
--- NOTE | 2021-01-02 15:46 | NUR ---
DC'd home to self care in stable condition via w/c accompanied by hospital staff and family member, no s/s of acute distress observed.
== END 2021-01-02 15:46 | disposition home or self-care (01) ==
LOC: D.ER 12:14 → OBSVTIME 13:52 → D.M2 13:52 → D.EDHOLD 13:52 → D.M2 17:14
PROVIDERS: Family Medicine; ADMIT Family Medicine; ATTEND Family Medicine
DX: R10.30 Lower abdominal pain, unspecified (principal); R55 Syncope and collapse; K59.00 Constipation, unspecified; I11.0 Hypertensive heart disease with heart failure; I50.9 Heart failure, unspecified; K21.9 Gastro-esophageal reflux disease without esophagitis; R53.1 Weakness; Z79.01 Long term (current) use of anticoagulants; I48.20 Chronic atrial fibrillation, unspecified; M54.5 Low back pain; K43.9 Ventral hernia without obstruction or gangrene; M54.32 Sciatica, left side; M54.31 Sciatica, right side; H92.01 Otalgia, right ear